=== PATIENT | female | born 1950 | race Caucasian/White ===

== ENCOUNTER → 2017-10-13 08:49 | Outpatient (CLI) | payer MEDICARE, SELFPAY ==
[2017-10-13 12:11] LABS: AST(SGOT) 14 U/L (15-37); Alanine Aminotransfer ALT/SGPT 20 U/L (13-56); Albumin, Serum 3.9 g/dL (3.2-5.0); Alkaline Phosphatase 117 U/L (45-117); Bilirubin, Direct 0.08 mg/dL (0.00-0.30); CPK Total, Creatine Kinase 74 U/L (26-192); Cholesterol 171 mg/dL (200); High Density Lipoprotein 61 mg/dL; Protein, Total 7.9 g/dL (6.4-8.2); Triglycerides 94 mg/dL; Very Low Density Lipoprotein 19 mg/dL (5-40)
== END ==
PROVIDERS: Family Provider Family Medicine; PCP Family Medicine
DX: E78.4 Other hyperlipidemia (principal)
CPT/HCPCS: 36415; 80061; 80076; 82550

== ENCOUNTER → 2018-06-29 09:18 | Outpatient (CLI) | payer MEDICARE, SELFPAY ==
--- NOTE | 2018-06-29 09:34 | CDU_ITS ---
Reason For Study: Bilateral Stenosis Rt. Velocities/BP Lt. Velocities/BP Prox CCA 101/21.7 cm/sec. Prox CCA 89.1/17.6 cm/sec. Mid CCA 84.4/22.9 cm/sec. Mid CCA 76.6/24 cm/sec. Dist CCA 90.9/23.5 cm/sec. Dist CCA 72.1/24.6 cm/sec. Prox ICA 138/41.3 cm/sec. Bulb 550/87.3 cm/sec. Mid ICA 119/44 cm/sec. Prox ICA 229/61.3 cm/sec. Dist ICA 121/40.1 cm/sec. Mid ICA 105/19.6 cm/sec. Rt. ICA/CCA = 1.52. Dist ICA 77/20.4 cm/sec. Prox ECA 116/29.1 cm/sec. Lt. ICA/CCA = 2.99. Rt. Vert. 29.3/10.2 cm/sec. Prox ECA 244/42.4 cm/sec. Lt. Vert. 52.6/16.1 cm/sec. Right Extracranial There is intimal thickening but no significant atherosclerotic plaque noted in the right common carotid artery. There is heterogeneous, irregular atherosclerotic plaque noted in the right internal carotid artery. There is intimal thickening but no significant atherosclerotic plaque noted in the right external carotid artery. Antegrade flow is noted in the right vertebral artery. Left Extracranial There is intimal thickening but no significant atherosclerotic plaque noted in the left common carotid artery. There is heterogeneous, irregular atherosclerotic plaque noted in the left internal carotid artery. There is homogeneous, smooth atherosclerotic plaque noted in the left external carotid artery. Antegrade flow is noted in the left vertebral artery. There is heterogeneous, irregular atherosclerotic plaque noted in the left bulb. Lt thyroid cyst noted measuring 2.54 x 1.39 cm. Procedure Carotid Duplex [id number]. Exam performed in department. Interpretation Summary Irregular plague at the proximal right internal carotid with 50-69% stenosis. Normal flow right external carotid Smooth plague within the left carotid bulb with focal area of severe high flow jet >70% stenosis left proximal internal carotid Moderate disease left external carotid Patent and antegrade vertebrals bilaterally Findings are similar to 06/19/17. Ordering Physician: THEE TARANGO Referring Physician: Raj Santana M.D. Performed By: Victorina Fang RVT and Student
[2018-06-29 11:57] LABS: AST(SGOT) 16 U/L (15-37); Alanine Aminotransfer ALT/SGPT 22 U/L (13-56); Albumin, Serum 4.2 g/dL (3.2-5.0); Alkaline Phosphatase 114 U/L (45-117); Bilirubin, Direct 0.09 mg/dL (0.00-0.30); CPK Total, Creatine Kinase 89 U/L (26-192); Cholesterol 181 mg/dL (200); Globulin 3.7 g/dL (2.2-4.2); High Density Lipoprotein 59 mg/dL; Protein, Total 7.9 g/dL (6.4-8.2); Triglycerides 139 mg/dL; Very Low Density Lipoprotein 28 mg/dL (5-40)
== END ==
PROVIDERS: Family Provider Family Medicine; PCP Family Medicine
DX: I65.23 Occlusion and stenosis of bilateral carotid arteries (principal); I77.9 Disorder of arteries and arterioles, unspecified; I25.10 Atherosclerotic heart disease of native coronary artery without angina pectoris; E78.2 Mixed hyperlipidemia
CPT/HCPCS: 36415; 80061; 80076; 82550; 93880

== ENCOUNTER → 2018-10-30 14:46 | Outpatient (CLI) | payer MEDICARE, SELFPAY ==
[2018-10-30 14:39] VITALS: BMI 25.2
--- NOTE | 2018-10-30 14:48 | RAD_ITS ---
STUDY: X-RAY - LUMBAR SPINE REASON FOR EXAM: Female, 68 years old. Chronic low back pain. TECHNIQUE: 4 view(s) of the lumbar spine were obtained including flexion and extension views. COMPARISON: None FINDINGS: Normal lumbar lordosis. There is no substantial scoliosis. There is a normal alignment of the vertebrae. Anterior spondylosis at the L3-L4 and L4-L5 levels. Disc space narrowing at the L4-L5 and L5-S1 levels. There is atherosclerotic calcification of the abdominal aorta without a demonstrated aneurysm. Large amount of fecal material is seen in the colon. RAD/L/S Spine Min 4 Views IMPRESSION: Degenerative changes of the spine, as detailed above. Electronically Signed: Mo Miller, at 10:48 EST , Service support ,
== END ==
PROVIDERS: Family Provider Family Medicine; PCP Family Medicine; Referring Provider Family Medicine; Visit Provider Physician Assistant
DX: R52 Pain, unspecified (principal)
CPT/HCPCS: 72110

== ENCOUNTER → 2019-01-12 10:09 | Outpatient (CLI) | payer MEDICARE, SELFPAY ==
[2018-10-30 14:39] VITALS: BMI 25.2
--- NOTE | 2019-01-12 10:24 | BI_ITS ---
MAMMOGRAPHY - BILATERAL SCREENING REASON FOR EXAM: Female, 68 years old. Routine annual screening examination. PERTINENT HISTORY: Non-contributory. TECHNIQUE: Digital bilateral breast sweta (3D mammographic acquisition) in the CC and MLO projections. 2-D mediolateral oblique (MLO) and craniocaudad (CC) views of both breasts were obtained. CAD: Full Field Digital Mammography with Computer Added Detection was performed. COMPARISON: Comparison is made with prior examination of May 15, 2017 and January 14, 2016. FINDINGS: Breast Composition: There are scattered areas of fibroglandular density. There are no dominant masses or suspicious calcifications. No other significant abnormalities are identified. There has been no significant change since the prior study. BI/SCREENING MAMM (CAD), BILAT IMPRESSION: Stable bilateral screening mammogram. Yearly follow-up mammogram recommended. (A) ASSESSMENT CATEGORY: BIRADS Category 1: Negative. A letter regarding these results will be sent to the patient by the facility within 30 days. Approximately 10% of breast cancers are not detected by mammography. A normal mammogram should not delay biopsy of a clinically suspicious abnormality. [id number] Electronically Signed: Mo Miller, at 8:56 EDT , Service support ,
== END ==
PROVIDERS: Family Provider Family Medicine; PCP Family Medicine; Referring Provider Family Medicine; Visit Provider Family Medicine
DX: Z12.31 Encounter for screening mammogram for malignant neoplasm of breast (principal)
CPT/HCPCS: 77063; 77067

== ENCOUNTER → 2019-03-19 10:56 | Outpatient (CLI) | payer MEDICARE, SELFPAY ==
[2018-10-30 14:39] VITALS: BMI 25.2
--- NOTE | 2019-03-19 10:58 | CDU_ITS ---
Reason For Study: Stenosis Rt. Velocities/BP Lt. Velocities/BP Prox CCA 117.4/22.5 cm/sec. Prox CCA 82.7/17.9 cm/sec. Mid CCA 84.6/17 cm/sec. Mid CCA 73.9/17.9 cm/sec. Dist CCA 72.8/16.3 cm/sec. Dist CCA 62.9/21.2 cm/sec. Prox ICA 138.9/35.8 cm/sec. Bulb 529.4/61.6 cm/sec. Mid ICA 119.3/33.4 cm/sec. Prox ICA 211/26.8 cm/sec. Dist ICA 110.1/31.6 cm/sec. Mid ICA 115.6/24.3 cm/sec. Rt. ICA/CCA = 1.6. Dist ICA 102.8/17 cm/sec. Prox ECA 140.4 cm/sec. Lt. ICA/CCA = 2.9. Rt. Vert. 26.9/8.2 cm/sec. Prox ECA 143/17 cm/sec. Lt. Vert. 49.4/15.4 cm/sec. Right Extracranial There is intimal thickening but no significant atherosclerotic plaque noted in the right common carotid artery. There is heterogeneous, irregular atherosclerotic plaque noted in the right internal carotid artery. There is intimal thickening but no significant atherosclerotic plaque noted in the right external carotid artery. Antegrade flow is noted in the right vertebral artery. Left Extracranial There is intimal thickening but no significant atherosclerotic plaque noted in the left common carotid artery. There is heterogeneous, irregular atherosclerotic plaque noted in the left internal carotid artery. There is homogeneous, smooth atherosclerotic plaque noted in the left external carotid artery. Antegrade flow is noted in the left vertebral artery. There is heterogeneous, irregular atherosclerotic plaque noted in the left bulb. Procedure Carotid Duplex [id number]. Exam performed in department. Interpretation Summary Heterogenous plague at the proximal right internal carotid with 50-69% stenosis. <50% stenosis right external carotid Heterogenous plague within the left carotid bulb and proximal internal carotid Notably elevated velocities left carotid bulb which do not fit stenosis criteria but may represent clinically significant disease and further evaluation is warranted. 50-69% stenosis left proximal internal carotid <50% stenosis left external carotid Patent and antegrade vertebrals bilaterally with <50% stenosis Ordering Physician: THEE TARANGO Referring Physician: Raj Santana M.D. Performed By: Chelo Romo RVT
== END ==
PROVIDERS: Family Provider Family Medicine; PCP Family Medicine
DX: I65.22 Occlusion and stenosis of left carotid artery (principal); I10 Essential (primary) hypertension; I25.10 Atherosclerotic heart disease of native coronary artery without angina pectoris
CPT/HCPCS: 93880

== ENCOUNTER → 2019-08-29 08:05 | Outpatient (CLI) | payer MEDICARE, SELFPAY ==
[2018-10-30 14:39] VITALS: BMI 25.2
[2019-08-29 09:22] LABS: ALB/GLOB Ratio 1.2 RATIO (0.9-2.4); AST(SGOT) 14 U/L (15-37); Alanine Aminotransfer ALT/SGPT 23 U/L (13-56); Alkaline Phosphatase 98 U/L (45-117); Anion Gap 4 (5-15); BUN 14 mg/dL (7-18); BUN/Creat Ratio 14.7 RATIO (10-20); Calcium,Total 9.1 mg/dL (8.5-10.1); Chloride 107 mmol/L (98-107); Cholesterol 200 mg/dL (200); Creatinine, Serum 0.96 mg/dL (0.55-1.02); EST Glomerular Filtration Rate 61 mL/min (>60); Est Glom Filt Rate - Afr Amer 74 mL/min (>60); Globulin 3.3 g/dL (2.2-4.2); Glucose 81 mg/dL (74-106); High Density Lipoprotein 67 mg/dL; Potassium 3.7 mmol/L (3.5-5.1); Protein, Total 7.3 g/dL (6.4-8.2); Sodium Level 142 mmol/L (136-145); Triglycerides 108 mg/dL; Very Low Density Lipoprotein 22 mg/dL (5-40)
== END ==
PROVIDERS: Family Provider Family Medicine; PCP Family Medicine; Referring Provider Internal Medicine Cardiovascular Disease; Visit Provider Internal Medicine Cardiovascular Disease
DX: E78.00 Pure hypercholesterolemia, unspecified (principal); I10 Essential (primary) hypertension
CPT/HCPCS: 36415; 80053; 80061

== ENCOUNTER → 2020-03-11 09:55 | Outpatient (CLI) | payer MEDICARE, SELFPAY ==
[2019-10-29 15:46] VITALS: BMI 25.2
--- NOTE | 2020-03-11 10:07 | CDU_ITS ---
Reason For Study: Carotid Stenosis Rt. Velocities/BP Lt. Velocities/BP Prox CCA 122/12 cm/sec. Prox CCA 117/18 cm/sec. Mid CCA 111/17 cm/sec. Mid CCA 86/18 cm/sec. Dist CCA 78/13 cm/sec. Dist CCA 67/16 cm/sec. Prox ICA 209/41 cm/sec. Prox ICA 415/75 cm/sec. Mid ICA 166/36 cm/sec. Mid ICA 308/42 cm/sec. Dist ICA 116/28 cm/sec. Dist ICA 103/22 cm/sec. Rt. ICA/CCA = 1.88. Lt. ICA/CCA = 4.83. Prox ECA 153/14 cm/sec. Prox ECA 227/12 cm/sec. Rt. Vert. 30/7 cm/sec. Lt. Vert. 58/13 cm/sec. Right Extracranial There is heterogeneous, irregular atherosclerotic plaque noted in the right common carotid artery. There is heterogeneous, irregular atherosclerotic plaque noted in the right internal carotid artery. There is homogeneous, smooth atherosclerotic plaque noted in the right external carotid artery. Antegrade flow is noted in the right vertebral artery. Pre-steal waveform noted Rt Vertebral A. Left Extracranial There is heterogeneous, irregular atherosclerotic plaque noted in the left common carotid artery. There is heterogeneous, smooth atherosclerotic plaque noted in the left internal carotid artery. There is heterogeneous, irregular atherosclerotic plaque noted in the left external carotid artery. Antegrade flow is noted in the left vertebral artery. Procedure Carotid Duplex [id number]. Incidental finding: Hypoechoic, non vascular structure noted Lt Thyroid measuring 2.32cm x 3.00cm. Exam performed in department. Prelim given to Tita at [facility]. Interpretation Summary Moderate amount of heterogenous plaque in the proximal right internal carotid artery with 50 to 69% stenosis. <50% stenosis right external carotid Heterogenous smooth plaque within the proximal left internal carotid artery with greater than 70% stenosis. >50% stenosis left external carotid Patent and antegrade vertebrals bilaterally Compared to the previous examination of March 19, 2019 or as the highest velocity was located within the left carotid bulb that velocity is now being identified in the proximal left internal carotid. Ordering Physician: Aly Rueda Referring Physician: Tong Santana Performed By: Melinda Montoya RDCS, SIGIFREDO
== END ==
PROVIDERS: PCP Family Medicine; Referring Provider Internal Medicine Cardiovascular Disease; Visit Provider Internal Medicine Cardiovascular Disease
DX: I65.22 Occlusion and stenosis of left carotid artery (principal)
CPT/HCPCS: 93880

== ENCOUNTER → 2020-04-10 08:34 | Outpatient (CLI) | payer MEDICARE, SELFPAY ==
[2019-10-29 15:46] VITALS: BMI 25.2
[2020-04-10 10:29] LABS: Anion Gap 4 (5-15); BUN 11 mg/dL (7-18); BUN/Creat Ratio 11.8 RATIO (10-20); Calcium,Total 9.8 mg/dL (8.5-10.1); Chloride 108 mmol/L (98-107); Creatinine, Serum 0.93 mg/dL (0.55-1.02); EST Glomerular Filtration Rate 63 mL/min (>60); Est Glom Filt Rate - Afr Amer 76 mL/min (>60); Glucose 85 mg/dL (74-106); Potassium 4.3 mmol/L (3.5-5.1); Sodium Level 142 mmol/L (136-145)
== END ==
PROVIDERS: PCP Family Medicine; Referring Provider Internal Medicine Cardiovascular Disease; Visit Provider Internal Medicine Cardiovascular Disease
DX: I10 Essential (primary) hypertension (principal)
CPT/HCPCS: 36415; 80048

== ENCOUNTER → 2020-06-16 | Outpatient (CLI) | payer MEDICARE, SELFPAY ==
[2020-06-16 15:17] VITALS: BMI 26.2
[2020-06-16 15:25] LABS: Bacteria 0 SEEN /hpf (None Seen); Mucous, Urine 0 SEEN /hpf (<or=2+); Red Blood Cells-Urine 0 SEEN /hpf (0-5); Squamous Epithelial Cells - UA 0 SEEN /hpf (5-10); White Blood Cells 0 SEEN /hpf (0-5)
[2020-06-16 16:51] LABS: Color, Urine Yellow (Yellow); Glucose, Dipstick Normal (Normal); Ketone-Dipstick Negative (Negative); Leukocyte Esterase-Dipstick Negative /ul (Negative); Nitrite-Dipstick Negative (Negative); Occult Blood-Urine 10 /ul (Negative); Protein-Dipstick Negative (Negative); Urine Bilirubin Dipstick Negative (Negative); Urine Clarity Clear (Clear); Urine Urobilinogen Normal (Normal)
== END | disposition home or self-care (01) ==
PROVIDERS: PCP Family Medicine; Referring Provider Nurse Practitioner Family; Visit Provider Nurse Practitioner Family
DX: R30.0 Dysuria (principal)
CPT/HCPCS: 81001; 87086; 87088

== ENCOUNTER → 2020-07-04 09:16 | Outpatient (CLI) | payer MEDICARE, SELFPAY ==
[2020-06-16 15:17] VITALS: BMI 26.2
[2020-07-04 09:25] LABS: Bacteria 0 SEEN /hpf (None Seen); Mucous, Urine 0 SEEN /hpf (<or=2+); Red Blood Cells-Urine 0 SEEN /hpf (0-5); White Blood Cells 0 SEEN /hpf (0-5)
[2020-07-04 09:58] LABS: Color, Urine Yellow (Yellow); Glucose, Dipstick Normal (Normal); Ketone-Dipstick Negative (Negative); Leukocyte Esterase-Dipstick Negative /ul (Negative); Nitrite-Dipstick Negative (Negative); Occult Blood-Urine 10 /ul (Negative); Protein-Dipstick Negative (Negative); Urine Bilirubin Dipstick Negative (Negative); Urine Clarity Clear (Clear); Urine Urobilinogen Normal (Normal)
[2020-07-04 10:20] LABS: Squamous Epithelial Cells - UA 0-5 SEEN /hpf (5-10)
== END ==
PROVIDERS: PCP Family Medicine; Referring Provider Nurse Practitioner Family; Visit Provider Nurse Practitioner Family
DX: R30.0 Dysuria (principal)
CPT/HCPCS: 81001; 87086; 87088

== ENCOUNTER → 2020-07-22 09:38 | Outpatient (CLI) | payer MEDICARE, SELFPAY ==
[2020-07-21 13:41] VITALS: BMI 26.0
--- NOTE | 2020-07-22 09:41 | CT_ITS ---
STUDY: CTA NECK WITH CONTRAST REASON FOR EXAM: Female, 69 years old. Carotid stenosis. Right arm numbness, trouble getting words out, possible TIA. Prelim already completed. RADIATION DOSAGE (If Supplied By Facility): CTDIvol = ( 18.06 ) mGy, DLP = ( 482.72 ) mGycm TECHNIQUE: CT angiography with multi-detector data acquisition was performed from the aortic arch to the skull base following intravenous administration of IV 100mL Isovue-370. MIP images were reconstructed from the axial data set. Post-processing of the angiographic images was performed, with multiplanar reformation and 3D reconstruction. Individualized dose optimization techniques were used for this CT. COMPARISON: Previous carotid DOPPLER ultrasound obtained on 03/11/2020, previous CTA of the neck obtained on 07/14/2017 FINDINGS: A CT scan of the head and neck was performed and reviewed. Mucoperiosteal reaction is noted in the ethmoid sinuses bilaterally with minimal mucoperiosteal reaction also seen in the maxillary sinuses due to a low-grade sinusitis. The patient has had bilateral uncinectomies. The remainder the skull base and the cervical spine appear to be normal. The parotid space, buccal space, parapharyngeal space, parapharyngeal mucosal space, retropharyngeal space, and carotid spaces are all normal. There is a heterogeneous masslike lesion seen in the left lobe of the thyroid. Although this probably represents a large thyroid cyst and was seen previously and is unchanged. If clinically indicated, further evaluation with a thoracic ultrasound might be helpful for additional evaluation. AORTIC ARCH: Normal visualized aortic arch. Normal origins of the brachiocephalic, left common carotid, and left subclavian arteries. There is 50% stenosis of the origin of the right subclavian artery. RIGHT CAROTID ARTERIES: Normal right common carotid artery (CCA). Normal right common carotid bulb. There is calcific arteriosclerosis noted at the origin of the right internal carotid artery causing 10% stenosis by NASCET criteria.. Normal visualized cervical portion of the right internal carotid artery. Normal origin of the right external carotid artery (ECA). LEFT CAROTID ARTERIES: Normal left common carotid artery (CCA). There is arteriosclerotic plaque noted involving the left carotid bifurcation with a possible tiny ulcerated plaque causing about 40% stenosis at this level. Normal origin of the left internal carotid (ICA) artery without a hemodynamically significant stenosis. Normal visualized cervical portion of the left internal carotid artery. There is about 70% stenosis of the origin of the left external carotid artery. (ECA). VERTEBRAL ARTERIES: There is a dominant and normal appearing left vertebral artery. There is a short segment of about 50% stenosis involving the origin of the right vertebral artery and another short segment of about 50% stenosis noted involving the distal V3 segment of the right vertebral artery. CT/CTA Neck W/WO Contrast IMPRESSION: 1. A complex cystic mass lesion is noted involving the left thyroid lobe which was previously identified and is unchanged. Consider further evaluation with thyroid ultrasound. 2. Calcific arteriosclerosis of the origin of the right internal carotid causing 10% stenosis by NASCET criteria. 3. Calcific arteriosclerosis is noted involving the left carotid bifurcation with a questionable ulcerated plaque causing 40% stenosis of the bifurcation and 70% stenosis of the origin of the left external carotid artery. 4. Dominant and normal left vertebral artery. 5. 50% stenosis of the origin of the smaller right vertebral artery and a short segment of 50% stenosis is also seen involving the V3 segment of the right vertebral artery. Electronically Signed: Bobo Soler, at 9:45 EST Tel , Service support ,
[2020-07-22 10:06] LABS: CREATININE FINGERSTICK 0.6 mg/dL (0.55-1.02)
[2020-07-22 11:09] LABS: Absolute Lymphocyte Count 2.92 X10^3/uL (0.83-4.51); Absolute Neutrophil Count 3.2 X10^3/uL (2.0-7.7); Basophil% 1.3 % (0-1); Eosinophil# 0.48 X10^3/uL; Eosinophils% 6.1 % (0-5); Hematocrit 44.1 % (37-47); Hemoglobin 14.1 g/dL (12.0-15.0); Lymphocyte # 2.92 X10^3/ul (4.0); Lymphocyte % 37.3 % (19-41); Mean Corpuscular Volume 96.9 fL (81-99); Mean Platelet Vol. 10.1 fl (6.2-12.0); NRBC Flagged by Analyzer 0 % (0-5); Neutrophil # 3.21 X10^3/uL (2.7-7.7); Platelet Count 499 K/mm3 (150-450); RBC Distribution Width CV 13.2 % (11.6-14.6); Red Blood Count 4.55 M/mm3 (4.2-5.4); White Blood Count 7.8 K/mm3 (4.4-11.0)
[2020-07-22 11:34] LABS: Anion Gap 4 (5-15); BUN 12 mg/dL (7-18); BUN/Creat Ratio 13.1 RATIO (10-20); Calcium,Total 9.6 mg/dL (8.5-10.1); Chloride 103 mmol/L (98-107); Creatinine, Serum 0.92 mg/dL (0.55-1.02); EST Glomerular Filtration Rate 64 mL/min (>60); Est Glom Filt Rate - Afr Amer 78 mL/min (>60); Glucose 88 mg/dL (74-106); Potassium 3.6 mmol/L (3.5-5.1); Sodium Level 137 mmol/L (136-145)
== END ==
PROVIDERS: Internal Medicine; PCP Family Medicine; Referring Provider Surgery; Visit Provider Surgery
DX: I74.9 Embolism and thrombosis of unspecified artery (principal); Z86.73 Personal history of transient ischemic attack (TIA), and cerebral infarction without residual deficits; I65.29 Occlusion and stenosis of unspecified carotid artery
CPT/HCPCS: 36415; 70498; 80048; 85025; Q9967

== ENCOUNTER → 2020-07-31 17:02 | Outpatient (CLI) | payer MEDICARE, SELFPAY ==
[2020-07-27 12:34] VITALS: BMI 26.0
--- NOTE | 2020-07-31 17:03 | MRI_ITS ---
STUDY: MRI BRAIN WITHOUT CONTRAST REASON FOR EXAM: Female, 69 years old. TIA acute neurologic deficit/findings TECHNIQUE: Standardized multiplanar fat and water weighted pulse sequences were obtained. COMPARISON: None. FINDINGS: There is no acute infarct. There is left posterior frontal lobe precentral sulcus related T-2/flair hyperintensity, possibly subacute infarct, such as 2-3 months old versus early chronic, less than 6-month-old. This is probably in the accessory motor area. There is no mass effect, extra parenchymal fluid collections, hydrocephalus or herniation. Extra parenchymal fluid spaces are diminished. Major vascular flow structures are intact. Orbits are normal. There is an empty sella turcica appearance with a normal gland flattened along the floor of the sella. This is an appearance associated with intracranial hypertension/pseudotumor cerebri. Craniocervical junction is unremarkable. There is mild mucosal reactive change in the ethmoid sinuses with remainder of the paranasal sinuses clear. There is hyperostosis frontalis, an age-related benign skull/bone condition. MRI/Brain without Contrast IMPRESSION: 1. No acute infarct. 2. 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 3. Empty sella turcica, an appearance associated with intracranial hypertension/pseudotumor cerebri. Attention to possibility of this diagnosis is advised. Electronically Signed: Julia Torrez, at 18:41 EST Tel , Service support ,
== END ==
PROVIDERS: PCP Family Medicine; Referring Provider Internal Medicine; Visit Provider Internal Medicine
DX: G45.9 Transient cerebral ischemic attack, unspecified (principal)
CPT/HCPCS: 70551

== ENCOUNTER 2020-08-05 05:30 | Inpatient (IN) | payer MEDICARE, SELFPAY ==
[2020-07-27 12:34] VITALS: BMI 26.0
--- NOTE | 2020-07-31 12:10 | EKG12_ITS ---
Test Reason : PREOP Blood Pressure : / mmHG Vent. Rate : 089 BPM Atrial Rate : 089 BPM P-R Int : 172 ms QRS Dur : 084 ms QT Int : 370 ms P-R-T Axes : 061 -28 076 degrees QTc Int : 450 ms Normal sinus rhythm Leftward Bells Poor R- wave progression Confirmed by AGUSTO LEES, JANICE ([id number]), sports editor MICHELE NEWTON ([id number]) on 08/03/2020 1:42:46 PM Referred By: RAE Confirmed By:JANICE LIZ MD
[2020-08-05] VITALS (23 sets, daily range): BP systolic 109–173; BP diastolic 45–88; PULSE 77–103; RESP 16–18; TEMP 36.1–37.1; O2SAT 93–100; BMI 26.4
--- NOTE | 2020-08-05 05:58 | HP.PCM_ITS ---
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 Is patient in pain?: No Allergies hydrochlorothiazide Allergy (Severe, Verified 07/27/20 12:34) Blood Pressure Sporadic Medications amlodipine 10 mg tablet 10 mg PO DAILY 09/12/18 [History Confirmed 07/27/20] aspirin 325 mg tablet 325 mg PO DAILY 09/12/18 [History Confirmed 07/27/20] simvastatin 40 mg tablet 40 mg PO QHS 09/12/18 [History Confirmed 07/27/20] clopidogrel 75 mg tablet 75 mg PO DAILY #14 tab 07/21/20 [Rx Confirmed 07/27/20] PFSH Medical History Vertigo (Chronic) Vascular disease (Chronic) High cholesterol (Chronic) Hypertension (Chronic) Heart disease (Chronic) Gastrointestinal complaints (Chronic) Surgical History History of cholecystectomy (Acute) History of coronary artery stent placement (Acute) History of sinus surgery (Acute) Family History Mother Cancer Brother Cancer Social History (Updated 07/27/20 @ 13:[address] Bismark Carroll MD) Smoking Status: Former smoker alcohol intake: never substance use type: does not use what type of physical activity do you participate in: walking frequency: daily HPI HPI HPI: SYBIL SUERO, is a 69 F who presents to the office today for surgical consultation regarding symptomatic left carotid stenosis and suspected TIA. The patient is referred by Dr. Cammie Noriega written copy my surgical consult recommendations will be returned to him. The patient states for may be as long as 10 to 15 years she has had periodic follow-up of her known left carotid stenosis. She now presents after having 2 separate episodes. She has had some problems with benign positional vertigo. She was undergoing therapy for her neck and back doing a new exercise a lunge. She states the next day she had loss of use of her right arm. She thought she had a stroke at that time it seemed to resolve. Approximately 1 week later she then had onset of another episode with tingling of the right arm and decreased fine motor control as well as significant slurring of her speech. She thinks that at the same time her right eye became feeling scratchy. At that time she was on aspirin 325 mg daily. She had a carotid duplex exam as noted below on March 11, 2020. This demonstrated peak systolic velocity within the left proximal internal carotid at 415 cm/s flow with end-diastolic loss of 75. The mid internal carotid showed 308 cm second peak systolic flow. This was felt to be greater than 70% stenosis. On the right peak systolic flow was 209 cm/s in the internal carotid consistent with 50 to 69% stenosis. Because of the patient's recent symptoms a CTA of the neck with contrast was obtained on July 22, 2020. There is felt to be a complex cystic lesion within the left thyroid previously identified and not changed. There is felt to be calcific origin of the right internal carotid at 10% stenosis. There is felt to be questionable ulcerated plaque causing 40% stenosis of the bifurcation of the left and then 70% stenosis of the origin of the left external carotid. The left vertebral is dominant and normal. There is 50% stenosis of the origin of the right vertebral artery. I have personally reviewed her current CTA. My interpretation is that there is a slightly more significant degree of stenosis of the very proximal left internal carotid with that then what appears to be post stenotic dilatation. This seems to be combined with suspicious area of plaque ulceration. The right carotid system does not seem to demonstrate critical disease at this time. [facility] [address] [place] [address]. [place] [address] Carotid Duplex Ultrasound 03/11/20 1014 MR#: [id number] Name: SYBIL SUERO [facility] #:[id number] : 1950 69From: Bismark Carroll MD Attending Dr: Dr. Aly Rueda, MDStatus: REG CLI Ordering Dr: Aly Rueda MDDate: 03/11/20 Location:CVSSex: Admitted: Reason For Study: Carotid Stenosis Rt. Velocities/BP Lt. Velocities/BP Prox CCA 122/12 cm/sec. Prox CCA 117/18 cm/sec. Mid CCA 111/17 cm/sec. Mid CCA 86/18 cm/sec. Dist CCA 78/13 cm/sec. Dist CCA 67/16 cm/sec. Prox ICA 209/41 cm/sec. Prox ICA 415/75 cm/sec. Mid ICA 166/36 cm/sec. Mid ICA 308/42 cm/sec. Dist ICA 116/28 cm/sec. Dist ICA 103/22 cm/sec. Rt. ICA/CCA = 1.88. Lt. ICA/CCA = 4.83. Prox ECA 153/14 cm/sec. Prox ECA 227/12 cm/sec. Rt. Vert. 30/7 cm/sec. Lt. Vert. 58/13 cm/sec. Right Extracranial There is heterogeneous, irregular atherosclerotic plaque noted in the right common carotid artery. There is heterogeneous, irregular atherosclerotic plaque noted in the right internal carotid artery. There is homogeneous, smooth atherosclerotic plaque noted in the right external carotid artery. Antegrade flow is noted in the right vertebral artery. Pre-steal waveform noted Rt Vertebral A. Left Extracranial There is heterogeneous, irregular atherosclerotic plaque noted in the left common carotid artery. There is heterogeneous, smooth atherosclerotic plaque noted in the left internal carotid artery. There is heterogeneous, irregular atherosclerotic plaque noted in the left external carotid artery. Antegrade flow is noted in the left vertebral artery. Procedure Carotid Duplex 34704. Incidental finding: Hypoechoic, non vascular structure noted Lt Thyroid measuring 2.32cm x 3.00cm. Exam performed in department. Prelim given to Tita at [facility]. Interpretation Summary Moderate amount of heterogenous plaque in the proximal right internal carotid artery with 50 to 69% stenosis. <50% stenosis right external carotid Heterogenous smooth plaque within the proximal left internal carotid artery with greater than 70% stenosis. >50% stenosis left external carotid Patent and antegrade vertebrals bilaterally Compared to the previous examination of March 19, 2019 or as the highest velocity was located within the left carotid bulb that velocity is now being identified in the proximal left internal carotid. Ordering Physician: Aly Rueda Referring Physician: Tong Santana Performed By: Melinda Montoya, RDCS, RVT 03/11/20 1236 Date Bismark Carroll MD [facility] Imaging Services [address] [place] [address] CTA Neck W/WO Contrast MR#: [id number] Name: SYBIL SUERO [facility] #:[id number] : 1950 69 From: Bobo Soler DO PCP:Dr. Tong Santana, DO Status:REG CLI Study:CTA Neck W/WO Contrast Date of Exam:07/22/20 Exam#[id number] Ordering Dr: Bismark Carroll MD STUDY: CTA NECK WITH CONTRAST REASON FOR EXAM: Female, 69 years old. Carotid stenosis. Right arm numbness, trouble getting words out, possible TIA. Prelim already completed. RADIATION DOSAGE (If Supplied By Facility): CTDIvol = ( 18.06 ) mGy, DLP = ( 482.72 ) mGycm TECHNIQUE: CT angiography with multi-detector data acquisition was performed from the aortic arch to the skull base following intravenous administration of IV 100mL Isovue-370. MIP images were reconstructed from the axial data set. Post-processing of the angiographic images was performed, with multiplanar reformation and 3D reconstruction. Individualized dose optimization techniques were used for this CT. COMPARISON: Previous carotid DOPPLER ultrasound obtained on 03/11/2020, previous CTA of the neck obtained on 07/14/2017 FINDINGS: A CT scan of the head and neck was performed and reviewed. Mucoperiosteal reaction is noted in the ethmoid sinuses bilaterally with minimal mucoperiosteal reaction also seen in the maxillary sinuses due to a low-grade sinusitis. The patient has had bilateral uncinectomies. The remainder the skull base and the cervical spine appear to be normal. The parotid space, buccal space, parapharyngeal space, parapharyngeal mucosal space, retropharyngeal space, and carotid spaces are all normal. There is a heterogeneous masslike lesion seen in the left lobe of the thyroid. Although this probably represents a large thyroid cyst and was seen previously and is unchanged. If clinically indicated, further evaluation with a thoracic ultrasound might be helpful for additional evaluation. AORTIC ARCH: Normal visualized aortic arch. Normal origins of the brachiocephalic, left common carotid, and left subclavian arteries. There is 50% stenosis of the origin of the right subclavian artery. RIGHT CAROTID ARTERIES: Normal right common carotid artery (CCA). Normal right common carotid bulb. There is calcific arteriosclerosis noted at the origin of the right internal carotid artery causing 10% stenosis by NASCET criteria.. Normal visualized cervical portion of the right internal carotid artery. Normal origin of the right external carotid artery (ECA). LEFT CAROTID ARTERIES: Normal left common carotid artery (CCA). There is arteriosclerotic plaque noted involving the left carotid bifurcation with a possible tiny ulcerated plaque causing about 40% stenosis at this level. Normal origin of the left internal carotid (ICA) artery without a hemodynamically significant stenosis. Normal visualized cervical portion of the left internal carotid artery. There is about 70% stenosis of the origin of the left external carotid artery. (ECA). VERTEBRAL ARTERIES: There is a dominant and normal appearing left vertebral artery. There is a short segment of about 50% stenosis involving the origin of the right vertebral artery and another short segment of about 50% stenosis noted involving the distal V3 segment of the right vertebral artery. CT/CTA Neck W/WO Contrast IMPRESSION: 1. A complex cystic mass lesion is noted involving the left thyroid lobe which was previously identified and is unchanged. Consider further evaluation with thyroid ultrasound. 2. Calcific arteriosclerosis of the origin of the right internal carotid causing 10% stenosis by NASCET criteria. 3. Calcific arteriosclerosis is noted involving the left carotid bifurcation with a questionable ulcerated plaque causing 40% stenosis of the bifurcation and 70% stenosis of the origin of the left external carotid artery. 4. Dominant and normal left vertebral artery. 5. 50% stenosis of the origin of the smaller right vertebral artery and a short segment of 50% stenosis is also seen involving the V3 segment of the right vertebral artery. Electronically Signed: Bobo Soler, at 9:45 EST Tel , Service support , HPI HPI HPI: SYBIL SUERO, is a 69 F who presents to the office today for ROS General General: No weight change, appetite, fatigue, colon cancer, breast cancer or weakness HEENT HEENT: No difficulty swallowing, eye injury, eye surgery, swollen glands or hoarseness Endo Endocrine: No thyroid disease, diabetes mellitus, thyroid cancer, Hair loss, heat intolerance or cold intolerance Skin Skin: No rash or changing moles Breast Breast: No left breast lump, right breast lump, nipple discharge, breast pain, abnormal mammogram, abnormal US or breast enlargement Musc Musculoskeletal: No back problems, arthritis, rheumatoid arthritis, gout or joint pain Cardio Cardiovascular: Yes heart disease, high blood pressure and heart stent; no murmur, pacemaker, atrial fibrillation, heart attack, palpitations, shortness of breat with exertion or chest pain Psych Psychiatric: No depression, anxiety or hearing voices Resp Respiratory: No shortness of breath, No sleep apnea, No cough, No COPD, No asthma, No emphysema, No wheezing Gastro Gastrointestinal: No abdominal pain, No nausea or vomiting, No diarrhea, No constipation, No blood in stool, No acid reflux, No hemorrhoids, No ulcers, No gallbladder problem, No black,tarry stools Min Hematologic: Yes blood thinners, No blood disorders, No bleeding, No anemia, No blood clots Neuro Neurologic: No system reviewed and no additional complaints, except as docu, No as per HPI, No abnormal walking, No abnormal hearing, No abnormal movements, No abnormal speech, No behavioral changes, No burning sensations, No confusion, No seizure-like activity, No unsteadiness, No dizziness, No localized weakness, No frequent falls, No headache(s), No lack of coordination, No loss of vision, No memory loss, No numbness, No other visual disturbances, No radiating pain, No restless legs, No sensory deficit, No fainting, No tingling, No tremor(s), No weakness, No other Exam Const General: cooperative, healthy appearing, comfortable, no acute distress Nutritional Appearance: average body habitus Orientation: alert, awake, oriented x3 HENMT Head: normal to inspection Eyes General: appearance normal, both eyes and all related structures Neck Carotids: normal carotid upstroke Other: Very soft bruit left carotid. I did not attempt a extensive thorough thyroid examination because of the patient's symptomatic carotid disease Chest Breast Palpation: No nipple discharge Resp Effort & Inspection: normal respiratory effort Auscultation: clear to auscultation bilaterally Cardio Rate: regular rate Rhythm: regular rhythm Heart Sounds: no murmurs GI Palpation: soft, no hepatosplenomegaly Auscultation: normal bowel sounds Musc Cervical Spine: normal cervical lordosis Skin General: no rashes or lesions noted Neuro Cognition: normal cognition Extrem General: no calf tenderness Psych Affect: normal affect Assessment & Plan Problems 1. Carotid stenosis, bilateral I65.23 Plan On my review of patient's symptoms and investigation to me it appears that the patient's had 2 separate TIA episodes involving likely the left carotid as a source while she was on 325 mg aspirin daily. That treatment was prescribed by her recycle coordinator this the patient had remote placement of coronary stent does not currently have any coronary symptoms. I have reviewed her previous carotid duplex imaging and current studies as well as her previous CTA of the carotids 3 years ago and her current study. I am very concerned that the current CTA demonstrates a higher degree of stenosis with what I suspect to be significant poststenotic dilatation in addition to likely an ulcerated plaque. Dr. Cammie Noriega had the patient changed from a 325 mg daily aspirin to an 81 mg aspirin with the addition of clopidogrel 75 mg daily. The patient has been instructed not to pursue additional physical therapy regarding her shoulder and neck. I have discussed with her in detail technique, benefit, risk, alternatives of a left carotid endarterectomy and compared and contrasted that to left carotid artery stenting. We discussed ongoing medical management as well. I believe there is now symptomatology to correlate with the disease present. I believe that the disease has progressed both on CTA and on carotid duplex. She is aware of the technique. She is aware that arterial line monitoring will be used and that she will be recovered in the recovery room with then pending her progress hopeful transfer to a [facility] floor. She is however aware that utilization of the ICU may be required. She is aware of COVID-19. She is aware that we have second floors are Covid floor. She is also aware of the procedure carotid artery stenting and that I could refer her for that procedure. She has had an opportunity to ask and have questions answered. At this point she is interested in scheduling proceeding for the left carotid enterectomy. We will have her hold her Plavix just 1 day preprocedure while she continues the aspirin therapy. She is aware of potential risk of stroke related to the procedure. We have also discussed anticipated durability. Copy: Dr. Cammie Carroll M.D., F.A.C.S. Coding Level of Care Code 41185 Diagnoses Carotid stenosis, bilateral I65.23 I have re-examined the patient. There are no clinical changes since date of exam. Procedure Criteria Procedure Type: Elective COVID Risk Discussion: The surgeon/proceduralist and patient have discussed in detail the risk of exposure to and/or potential harm posed by the COVID-19 virus with having a surgery/procedure at this time versus the risk of delaying the surgery/procedure. It is not possible to know either the risk of delaying the surgery or procedure or chance of getting an infection with perfect accuracy, but a joint decision was made between the patient and the surgeon/proceduralist to proceed at this time with the scheduled surgery/procedure as indicated on the consent form.
--- NOTE | 2020-08-05 05:59 | DCINST_ITS ---
Discharge Diet: Light diet - advance as tolerated - if you have questions about your diet instructions, please talk to you doctor. Discharge Activity: May Not Drive - for 1 week or while taking narcotic pain medicine. Additional Instructions: Please refer to preprinted instructions. You may cease your clopidogrel at this time Allergies/Adverse Reactions: Allergies hydrochlorothiazide Allergy (Severe, Verified 08/05/20 05:57) Blood Pressure Sporadic Medications to take at Discharge amlodipine 10 mg tablet 10 mg PO DAILY 09/12/18 simvastatin 40 mg tablet 40 mg PO QHS 09/12/18 Aspirin [Aspirin EC] 81 mg PO DAILY 07/31/20 Clopidogrel Bisulfate [Clopidogrel] 75 mg PO DAILY 07/31/20 Primary Care Physician: Tong Santana DO [Primary Care Provider] - Test Results: Test results from this visit will be discussed in further detail at your follow- up appointment, if applicable. Please Follow Up With: Bismark Carroll MD - [phone] When: Call for appt. May be phone, virtual, or on-site. 10days
--- NOTE | 2020-08-05 06:33 | PCM.OPRPT ---
Problem List (1) Carotid stenosis, bilateral Status: Acute Report of Operation Date of Procedure: 08/05/20 Pre-Operative Diagnosis: Symptomatic ulcerative stenosis left extracranial internal carotid artery Post-Operative Diagnosis: Same Surgery/Procedure Performed:: Right radial arterial line placement. Left carotid endarterectomy with bovine patch angioplasty Description of Surgical Findings:: Timeout and informed consent was obtained. At the bedside Aurelio test performed demonstrating normal right ulnar flow. The wrist was gently extended prepped with Betadine. Under ultrasound guidance the right radial artery was identified. 1% lidocaine was used as a local anesthetic. 1 cc was injected. Using a Arrow kit Angiocath percutaneous access was obtained and then Seldinger wire advancement was used to advance the catheter. It was secured the skin with 2-0 silk. It was connected to pressure tubing. OpSite dressing followed by Eleni wrap applied. No apparent complication. Hand was viable at the completion. Good waveform was obtained. The patient tolerated it well. The patient was subsequently taken to the operating for definitive left carotid surgery. Timeout and informed consent was obtained. The patient was placed supine on the table and underwent general endotracheal intubation anesthesia. Ancef 2 g were given intravenously. The left neck was carefully prepped and draped. An oblique incision was made along the anterior aspect of the left sternocleidomastoid. Sharp dissection carried down through the subcutaneous tissue. The platysma was incised. Dissection was then performed directly down upon the carotid bulb common carotid internal carotid. Circumferential control was obtained proximally and distally of the internal carotid external carotid and common carotid. A Elizabeth tourniquet was placed with a Dacron tape at the internal carotid a Dacron tape at the common carotid and a vessel loop at the external carotid. The patient received 7000 and's of heparin intravenously. Peripheral vascular clamps were applied. A 11 blade was used to make an arteriotomy which was extended with Estevez scissors. A #8 USCI style shunt was placed cephalad and proximally. An endarterectomy was performed the layer of the external elastic lamina. The plaque was sharply transected proximally and carefully feathered at the internal carotid. An inversion endarterectomy was performed to the external carotid. Additional plaque and debris was carefully removed with fine forceps. An apical suture of the internal carotid intima of 7-0 Prolene was placed for securement. A 8 x 0.8 similar bovine patch was shaped to form and a patch angioplasty was created with a running 6-0 Prolene. Prior to completion the shunt was removed the patch angioplasty was completed. Initial flow was instituted from the external carotid common carotid and the internal carotid. Based upon ACT measurements additional 500 units of heparin had been given intraoperatively. A single repair suture of 7-0 Prolene was used on the patch angioplasty. The patient received 20 mg of protamine as reversal agent. The wound was closed with a subcutaneous and subdermal layer of interrupted 3-0 Vicryl. The skin edges approximate running septic or 5-0 Vicryl. The periincisional area was anesthetized with 20 cc of 0.5% Marcaine. Steri-Strips Telfa OpSite dressings applied. Sponge and instrument and needle counts were reported to the surgeon to be correct. Specimen plaque. Drains none. Blood loss 150 cc. The patient awoke appeared to be neurologically intact and was taken to the recovery area in satisfactory vision without apparent complication. Bismark Carroll M.D., F.A.C.S. Type of Anesthesia:: General Anesthesiologist: Lindsay Menjivar
[2020-08-05] MEDS: 0.9% Normal Saline 250 ML IV.SOLN. 30 ML IV (06:49)
[2020-08-05] MEDS: Lactated Ringers 1,000 ML 100 ML IV (06:50)
[2020-08-05] MEDS: 0.9% Normal Saline 1,000 ML 30 ML IV (06:50)
[2020-08-05] MEDS: Cefazolin 2 GM in 0.9% Normal Saline 100 ML IV (07:18)
--- NOTE | 2020-08-05 07:30 | PLAQ_PTH ---
PATIENT: SYBIL SUERO LOC: MS3 U#:[id number] AGE/SX: 69/F ROOM: MS306 RE08/05/[address]: Dr. Bismark Carroll MD : 1950 BED: 1 DIS: 08/06/2020 SPEC #: [id number] RECD: 08/05/20 10:57 STATUS: DANI REGenny #: [id number] ELENA: 08/05/20 07:[address]: Bismark Carroll DEPT: SURGICAL PATHOLOGY RECD BY: Shadia Causey ENTERED: 08/05/20 12:15 SP TYPE: PLAQUE OTHR DR: Dr. Tong Santana, DO Tissues: PLAQUE Procedures: Decalcification bone/plaque Surgery Specimen Level III HEADER OPERATION: Carotid endarterectomy with patch angioplasty PRE-OP DIAGNOSIS: Carotid stenosis, bilateral TISSUE SUBMITTED: Left carotid plaque MICROSCOPIC DIAGNOSIS Left carotid artery plaque, endarterectomy: Calcified atheromatous plaque consistent with severe stenosis. AM:sunny 08/10/20 GROSS DESCRIPTION Received in fixative is one container labeled with the patient's name and designated left carotid plaque. The specimen consists of an elongated fragment of vdpm-bdpvlm-end tissue measuring 3 x 1 x 1 cm. The specimen is sectioned and totally submitted in one cassette after decalcification. / AM:sunny 08/05/20 TC:5 CPT: 324016, 13805
[2020-08-05] MEDS: Heparin Injection (Vial) 5,000 UNIT/ML VIAL 5000 UNIT (07:43)
[2020-08-05 09:41] LABS: ACT Activated Clotting Time 246 sec (74-137)
[2020-08-05 09:41] LABS: ACT Activated Clotting Time 224 sec (74-137)
[2020-08-05 09:41] LABS: ACT Activated Clotting Time 120 sec (74-137)
[2020-08-05] MEDS: Bupivacaine Mpf 0.5% 30 ML VIAL (09:44)
--- NOTE | 2020-08-05 10:13 | SUR.PHASEI ---
Addendum entered by Adwoa Boothe 08/05/20 11:58: 1155: DR MCBRIDE CALLS FOR UPDATE, AWARE OF SLIGHT LEFT TONGUE DEVIATION, EPIGASTRIC PRESSURE BUBBLE NEED TO BURP SENSATION, ART SBP HANGING RIGHT AROUND 160. ORDER TO GIVE HYDRALAZINE 5 MG IV x 1 NOW. Addendum entered by Adwoa Boothe 08/05/20 11:26: AT 1040: ROLDAN CARMONA CRNA, STILL AT BEDSIDE, STATES SBP WAS LABILE IN O.R.. PATIENT INTERMITTANTLY C/O NAUSEA, THAT SHE NEEDS TO BURP WHICH IS UNCOMFORTABLE, ASKING TO STAND UP AT SIDE OF BED. PATIENT STATES SHE FREQUENTLY HAS SAME FEELING AT HOME OF NEEDING TO BURP BUT UNABLE. ENCOURAGE COUGHING, THROAT CLEARING BUT PATIENT STATES UNABLE. CONTINUE TO MONITOR. STRAIGHT CATH FOR 1000 ML CLEAR, YELLOW URINE. Addendum entered by Adwoa Boothe 08/05/20 11:25: AT 1020, UPDATED DR MCBRIDE RE: BP, INABILITY TO VOID, OTHERWISE STABLE. OKAY FOR SBP TO BE IN 100'S, OTHERWISE SBP PARAMETERS 120-160, MAY STRAIGHT CATH NOW. Original Note: ON ARRIVAL TO PACU: TONGUE VERY SLIGHTLY LEFT OF MIDLINE ON ARRIVAL, ALL OTHER NEURO EXAM NEGATIVE. Hx TIA x 2. NO EDEMA, BLEEDING, OR HEMATOMA TO LEFT NECK. RESTLESS, C/O URGE TO VOID, UNABLE TO USE BEDPAN.
[2020-08-05] MEDS: hydrALAZINE 20 MG/ML Vial 5 MG IV (12:23)
--- NOTE | 2020-08-05 14:50 | NURSING ---
HOB at 30 degrees and Lower extremities elevated to 10 degrees per orders.
[2020-08-05] MEDS: Cefazolin 1 GM/50 ML BAG IV ×2 (15:44→21:49)
--- NOTE | 2020-08-05 15:50 | NURSING ---
pt was able to tolerate clear liquids for an hour now. Will advance to regular. Pt up to bathroom, voided back to bed. Will get pt up to chair with dinner.
--- NOTE | 2020-08-05 16:03 | PN.SURG_ITS ---
Patient Problems: Active and Suspected Problems (Last Reviewed 07/27/20 @ 12:33 by Sharlene Desai) Carotid stenosis, bilateral (Acute) Subjective: Patient has no complaints. She actually feels very good. She has minimal discomfort left neck. - Physical Exam Vitals/I&O's: Vital Signs Temp Pulse Resp BP Pulse Ox 98.7 F 86 18 141/74 H 100 08/05/20 14:19 08/05/20 14:19 08/05/20 14:19 08/05/20 14:19 08/05/20 14:19 Oxygen Flow Rate (L/min) 1 Oxygen Delivery Method Nasal Cannula Weight: 163 lb 12.855 oz Body Mass Index (BMI) 26.4 Intake and Output for Last 24 Hours 08/03/20 08/04/20 08/05/20 23:59 23:59 23:59 Intake Total 2110 / 2110 Output Total 1365 / 1365 Balance 745 / 745 Microbiology Past 72 Hours 08/04/20 09:55 Interface Orders SARS-CoV-2 Antigen (Rapid) - Final Laboratory Results 08/05/20 06:38: Activated Clotting Time 120 08/05/20 08:50: Activated Clotting Time 246 H 08/05/20 09:26: Activated Clotting Time 224 H Current Medications Acetaminophen (Acetaminophen 325 Mg Tablet) 325 - 650 mg PO Q4H PRN PRN PRN Reason: Pain Score 1-10/10 or Headache Hydrocodone Bitart/Acetaminophen (Hydrocodone Bitartrate/Apap 5/325 Tablet) 1 - 2 tablet PO Q6H PRN PRN PRN Reason: Pain Score 1-10 Amlodipine Besylate (Amlodipine 10 Mg Tablet) 10 mg PO DAILY [facility] Aspirin (Aspirin E.C. 81 Mg Tablet) [facility] Atorvastatin Calcium (Atorvastatin Calcium 20 Mg Tablet) 20 mg PO QHS [facility] Lactated Ringer's () 1,000 mls @ 100 mls/hr IV .Q10H [facility] Last Admin: 08/05/20 06:50 Dose: 100 mls/hr Documented by: Cefazolin Sodium () 1 gm in 50 mls @ 150 mls/hr IV Q8 [facility] Stop: 08/05/20 22:19 Last Admin: 08/05/20 15:44 Dose: 150 mls/hr Documented by: Sodium Chloride () 1,000 mls @ 30 mls/hr IV .[id number] [facility]UREA Last Infusion: 08/05/20 11:36 Dose: Infused Documented by: Sodium Chloride () 250 mls @ 15 mls/hr IV .[id number] PRN PRN Reason: Saline Flush Sodium Chloride () 250 mls @ 15 mls/hr IV .[id number] PRN PRN Reason: Additional IVPB Infusion Morphine Sulfate (Morphine 2 Mg/Ml Syringe) 2 - 4 mg IV Q1H PRN PRN PRN Reason: Pain Score 1-10 Morphine Sulfate (Morphine 4 Mg/Ml Syringe) 2 - 4 mg IV Q1H PRN PRN PRN Reason: Pain Score 1-10 Ondansetron HCl (Ondansetron 4 Mg/2 Ml Vial) 4 mg IV Q8H PRN PRN PRN Reason: NAUSEA Sodium Chloride (0.9% Saline Lock 10 Ml Syringe) 10 - 40 ml IV UD PRN PRN Reason: SALINE FLUSH Medical Necessity - Tobacco Use Smoking Status: Former smoker Tobacco Use: Non-smoker Assessment/Plan All Active Problems (Last Reviewed 07/27/20 @ 12:33 by Sharlene Desai) Carotid stenosis, bilateral (Acute) Seborrheic keratosis (Acute) Patient is neurologically intact. Vital signs are stable. She did require 1 straight cath for brief urinary retention but she is now been voiding on her own. IV fluids will be KVO. She will mobilize as tolerated. She will not need home-going clopidogrel. She will be managed with daily aspirin therapy. Bismark Carroll M.D., F.A.C.S.
--- NOTE | 2020-08-05 16:03 | NURSING ---
PT EDUCATED, TAUGHT ON HOW TO USE I.s. uSING AT THIS TIME.
[2020-08-06 02:30] VITALS: BP 158/85; PULSE 100; RESP 18; TEMP 36.9; O2SAT 95
[2020-08-06 05:31] VITALS: BP 155/86; PULSE 92; RESP 18; TEMP 36.3; O2SAT 96
[2020-08-06] MEDS: Ondansetron 4 MG/2 ML Vial IV (05:36)
--- NOTE | 2020-08-06 06:24 | PCM.CAROT ---
General Carotid Note - Subjective Post-Op Day #: 1 - Objective Vital Signs Temp Pulse Resp BP Pulse Ox 97.3 F L 92 18 155/86 H 96 08/06/20 05:31 08/06/20 05:31 08/06/20 05:31 08/06/20 05:31 08/06/20 05:31 Microbiology Past 72 Hours 08/04/20 09:55 SARS-CoV-2 Antigen (Rapid) - Final Interface Orders Laboratory Tests Past 24 Hrs 08/05/20 08/05/20 08/05/20 06:38 08:50 09:26 Activated Clotting Time 120 246 H 224 H Neck: Supple, - - Wound very clean and dry left neck Neurological: Cranial nerves II-XII grossly intact Cardiovascular: Regular rate, Regular Rhythm - Assessment/Plan Excellent progress. The patient denies any neurologic symptoms. She feels good. Vital signs stable. Patient ready for discharge She states that she is on 325 mg aspirin daily per cardiology. She may continue that. She may stop her clopidogrel. Bismark Carroll M.D., F.A.C.S.
[2020-08-06 07:27] VITALS: O2SAT 95
[2020-08-06 08:05] VITALS: BP 151/71; PULSE 89; RESP 16; TEMP 37; O2SAT 99
[2020-08-06] MEDS: Aspirin E.C. 81 MG Tablet PO (08:06)
[2020-08-06] MEDS: amLODIPine 10 MG Tablet PO (08:07)
--- NOTE | 2020-08-06 10:16 | CASEMGMT ---
RN CM attempted to complete CM assessment at this time. Patient discharged prior to assessment. Patient lives with and is established with PCP. No needs identified.
== END 2020-08-06 09:54 | disposition home or self-care (01) | DRG 27 ==
LOC: ACINP 05:32 → MS3 08:13
PROVIDERS: Admitting Provider Surgery; PCP Family Medicine; Visit Provider Surgery
PROC: 03HY32Z Insertion of Monitoring Device into Upper Artery, Percutaneous Approach (ICD-10-PCS; CPT 35301; principal; 2020-08-05 07:10)
DX: I65.23 Occlusion and stenosis of bilateral carotid arteries (principal); H81.10 Benign paroxysmal vertigo, unspecified ear; L82.1 Other seborrheic keratosis; I10 Essential (primary) hypertension; E78.00 Pure hypercholesterolemia, unspecified; Z87.891 Personal history of nicotine dependence; Z79.82 Long term (current) use of aspirin; R33.9 Retention of urine, unspecified; Z86.73 Personal history of transient ischemic attack (TIA), and cerebral infarction without residual deficits; Z95.5 Presence of coronary angioplasty implant and graft; Z90.49 Acquired absence of other specified parts of digestive tract
CPT/HCPCS: 85347; 87426; 88304; 88311; 93005; 94762; 99251; C9803; J7030; J7040; J7050; J7120; G0463; J2405

== ENCOUNTER → 2020-09-11 09:58 | Outpatient (CLI) | payer MEDICARE, SELFPAY ==
--- NOTE | 2020-09-11 10:01 | CDU_ITS ---
Reason For Study: Carotid stenosis, S/P Lt CEA Rt. Velocities/BP Lt. Velocities/BP Prox CCA 103.4/13.4 cm/sec. Prox CCA 110.3/22.6 cm/sec. Mid CCA 89.1/16 cm/sec. Mid CCA 79.1/17 cm/sec. Dist CCA 78.6/13.4 cm/sec. Dist CCA 79.1/17 cm/sec. Prox ICA 176.2/40.2 cm/sec. Prox ICA 53.2/12.6 cm/sec. Mid ICA 137.5/29.8 cm/sec. Mid ICA 71.6/21.2 cm/sec. Dist ICA 83.9/24.9 cm/sec. Dist ICA 83.9/23.7 cm/sec. Rt. ICA/CCA = 2.00. Lt. ICA/CCA = 1.06. Prox ECA 111.2/8.2 cm/sec. Prox ECA 121.1/18.8 cm/sec. Rt. Vert. 34.3/8.8 cm/sec. Lt. Vert. 53.2/11.4 cm/sec. Right Extracranial There is homogeneous, smooth atherosclerotic plaque noted in the right common carotid artery. There is heterogeneous, irregular atherosclerotic plaque noted in the right internal carotid artery. Unable to match elevated velocities in the right proximal ICA as compared to study done on 03/11/2020. There is homogeneous, smooth atherosclerotic plaque noted in the right external carotid artery. Antegrade flow is noted in the right vertebral artery. Left Extracranial There is homogeneous, smooth atherosclerotic plaque noted in the left common carotid artery. There is homogeneous, smooth atherosclerotic plaque noted in the left internal carotid artery. There is heterogeneous, irregular atherosclerotic plaque noted in the left external carotid artery. Antegrade flow is noted in the left vertebral artery. Vascularized structure noted in the left thyroid measuring approximently 2.20 x 1.43 x 3.03 cm. Procedure Carotid Duplex [id number]. This is a Carotid Duplex examination using B-mode, color flow and specral Doppler. Exam performed in department. Interpretation Summary Smooth plaque located within the right common carotid artery with irregular plaque within the right internal carotid artery 50 to 69% stenosis right proximal internal carotid Less than 50% stenosis right external carotid Smooth plaque within the left common carotid with additional smooth postoperative changes left carotid bulb and proximal internal carotid Less than 50% stenosis left internal carotid Less than 50% stenosis left external carotid Patent and antegrade vertebrals bilaterally Left thyroid 2.2 x 1.4 x 3 cm solid nodule with vascular flow noted Improvement is noted in the left internal carotid from the previous exam of March 11, 2020 Left thyroid nodule also previously noted March 11, 2020 Ordering Physician: Bismark Carroll Referring Physician: Raj Santana M.D. Performed By: Chelo Romo RVT
== END ==
PROVIDERS: PCP Family Medicine; Referring Provider Surgery; Visit Provider Surgery
DX: I65.23 Occlusion and stenosis of bilateral carotid arteries (principal)
CPT/HCPCS: 93880

== ENCOUNTER → 2020-10-05 08:11 | Outpatient (CLI) | payer MEDICARE, SELFPAY ==
[2020-10-05 10:37] LABS: Anion Gap 4 (5-15); BUN 10 mg/dL (7-18); BUN/Creat Ratio 10.5 RATIO (10-20); CPK Total, Creatine Kinase 64 U/L (26-192); Calcium,Total 9.9 mg/dL (8.5-10.1); Chloride 106 mmol/L (98-107); Cholesterol 201 mg/dL (200); Creatinine, Serum 0.95 mg/dL (0.55-1.02); EST Glomerular Filtration Rate 62 mL/min (>60); Est Glom Filt Rate - Afr Amer 74 mL/min (>60); Glucose 84 mg/dL (74-106); High Density Lipoprotein 69 mg/dL; Potassium 3.7 mmol/L (3.5-5.1); Sodium Level 141 mmol/L (136-145); Triglycerides 120 mg/dL; Very Low Density Lipoprotein 24 mg/dL (5-40)
== END ==
PROVIDERS: PCP Family Medicine; Referring Provider Internal Medicine Cardiovascular Disease; Visit Provider Internal Medicine Cardiovascular Disease
DX: I10 Essential (primary) hypertension (principal); I25.10 Atherosclerotic heart disease of native coronary artery without angina pectoris; E78.00 Pure hypercholesterolemia, unspecified
CPT/HCPCS: 36415; 80048; 80061; 82550

== ENCOUNTER → 2021-04-19 12:15 | Outpatient (CLI) | payer MEDICARE, SELFPAY ==
[2021-04-19 16:34] LABS: Probe Check PASS; Specimen Processing Control PASS
== END ==
PROVIDERS: PCP Family Medicine; Referring Provider Physician Assistant; Visit Provider Physician Assistant
DX: U07.1 COVID-19 (principal)
CPT/HCPCS: 87635; U0005; U0003

== ENCOUNTER → 2021-10-21 09:09 | Outpatient (CLI) | payer MEDICARE, SELFPAY ==
[2021-10-21 10:48] LABS: ALB/GLOB Ratio 1.1 RATIO (0.9-2.4); AST(SGOT) 20 U/L (15-37); Alanine Aminotransfer ALT/SGPT 27 U/L (13-56); Alkaline Phosphatase 109 U/L (45-117); Anion Gap 3 (5-15); BUN 13 mg/dL (7-18); BUN/Creat Ratio 13.1 RATIO (10-20); Calcium,Total 9.8 mg/dL (8.5-10.1); Chloride 105 mmol/L (98-107); Cholesterol 172 mg/dL (200); Creatinine, Serum 0.99 mg/dL (0.55-1.02); EST Glomerular Filtration Rate 58 mL/min (>60); Est Glom Filt Rate - Afr Amer 71 mL/min (>60); Globulin 3.8 g/dL (2.2-4.2); Glucose 88 mg/dL (74-106); High Density Lipoprotein 66 mg/dL; Potassium 3.8 mmol/L (3.5-5.1); Protein, Total 7.8 g/dL (6.4-8.2); Sodium Level 141 mmol/L (136-145); Triglycerides 90 mg/dL; Very Low Density Lipoprotein 18 mg/dL (5-40)
== END ==
PROVIDERS: PCP Family Medicine
DX: I25.10 Atherosclerotic heart disease of native coronary artery without angina pectoris (principal)
CPT/HCPCS: 36415; 80053; 80061

== ENCOUNTER 2021-11-01 08:53 | Outpatient (CLI) | payer MEDICARE, SELFPAY ==
--- NOTE | 2021-11-01 09:03 | CDU_ITS ---
Reason For Study: Carotid stenosis Rt. Velocities/BP Lt. Velocities/BP Prox CCA 94.3/13.4 cm/sec. Prox CCA 97.2/20.4 cm/sec. Mid CCA 94.3/16 cm/sec. Mid CCA 81.9/13.8 cm/sec. Dist CCA 72.1/16 cm/sec. Dist CCA 75.3/13.8 cm/sec. Prox ICA 166.6/42.2 cm/sec. Prox ICA 76.5/18.8 cm/sec. Mid ICA 123.5/20.4 cm/sec. Mid ICA 67.9/21.2 cm/sec. Dist ICA 90/24.3 cm/sec. Dist ICA 92.5/26.2 cm/sec. Rt. ICA/CCA = 1.77. Lt. ICA/CCA = 1.13. Prox ECA 126.9/12.1 cm/sec. Prox ECA 145.5/18.2 cm/sec. Rt. Vert. 46.5/10.2 cm/sec. Lt. Vert. 54.4/15.1 cm/sec. Right Extracranial There is homogeneous, smooth atherosclerotic plaque noted in the right common carotid artery. There is heterogeneous, irregular atherosclerotic plaque noted in the right internal carotid artery. There is homogeneous, smooth atherosclerotic plaque noted in the right external carotid artery. Antegrade flow is noted in the right vertebral artery. Left Extracranial There is homogeneous, smooth atherosclerotic plaque noted in the left common carotid artery. There is homogeneous, smooth atherosclerotic plaque noted in the left internal carotid artery. There is heterogeneous, irregular atherosclerotic plaque noted in the left external carotid artery. Antegrade flow is noted in the left vertebral artery. Vascularized structure noted in the left thyroid measuring approximately 1.62 x 1.52 x 2.70 cm. VL/Carotid Duplex Ultrasound Interpretation Summary Irregular plaque at the proximal right internal carotid artery with 50 to 69% s tenosis. Less than 50% stenosis right external carotid artery Postoperative changes of the left carotid bulb and proximal internal carotid wi thout significant plaque. Less than 50% stenosis left internal carotid Less than 50% stenosis left external carotid Patent and antegrade vertebrals bilaterally Left thyroid nodule 1.62 x 1.52 x 2.7 cm with vascular flow. Previously on 2020 left thyroid nodules felt to have measured 2 x 1.43 x 3.03 cm Ordering Physician: Bismark Carroll Referring Physician: Raj Santana M.D. Performed By: Chelo Romo RVT
== END 2021-11-01 23:59 | disposition home or self-care (01) ==
PROVIDERS: PCP Family Medicine; Referring Provider Surgery; Visit Provider Surgery
DX: I65.23 Occlusion and stenosis of bilateral carotid arteries (principal)
CPT/HCPCS: 93880

== ENCOUNTER → 2021-11-02 09:57 | Outpatient (CLI) | payer MEDICARE, SELFPAY ==
--- NOTE | 2021-11-02 10:00 | ECHOD_ITS ---
Reason For Study: MURMUR Procedure This was a 2D Doppler, Color Flow transthoracic echocardiogram. Exam performed in department. Left Ventricle Normal LV size. Left ventricular systolic function is normal. The estimated ejection fraction is 60 %. Stage 1 diastolic dysfunction. No regional wall motion abnormalities noted. Right Ventricle Normal RV size. Normal systolic function. Atria Normal left atrium. Normal right atrium. Mitral Valve Normal mitral valve. Pulmonic Valve Normal pulmonic valve. Great Vessels Normal aortic root. The pulmonary artery is normal size. Normal inferior vena cava. Pericardium/Pleural No pericardial effusion. MMode/2D Measurements & Calculations LVIDd: 4.1 cm IVSd: 1.1 cm Ao root diam: 3.1 cm LVIDs: 2.7 cm LVPWd: 1.1 cm RVDd: 2.8 cm FS: 34.5 % LAV(MOD-bp): 30.4 ml SV(MOD-sp4): 38.8 ml LVAd ap4: 22.6 cm2 LAV(MOD-bp) Indexed: 16.8 ml/m2 LVLd ap4: 7.3 cm LAV(MOD-sp2): 31.2 ml EDV(MOD-sp4): 57.4 ml LAV(MOD-sp4): 27.1 ml EDV(sp4-el): 59.7 ml LVAs ap4: 11.4 cm2 LVLs ap4: 6.0 cm ESV(MOD-sp4): 18.5 ml ESV(sp4-el): 18.2 ml EF(MOD-sp4): 67.7 % EF(sp4-el): 69.5 % SV(sp4-el): 41.4 ml LA dimension(2D): 3.3 cm LA A4 area: 12.5 cm2 RA A4 area: 10.5 cm2 Time Measurements MV dec time: 0.21 sec Doppler Measurements & Calculations MV E max manolo: 100.9 cm/sec Lat Peak E' Manolo: 7.1 cm/sec Med Peak E' Manolo: 10.7 cm/sec MV A max manolo: 93.9 cm/sec E/E' lat: 14.2 E/E' med: 9.5 MV E/A: 1.1 Ao V2 max: 138.9 cm/sec LV V1 max: 133.9 cm/sec PA V2 max: 99.3 cm/sec Ao max P.7 mmHg LV V1 max P.2 mmHg ECHO/Echo Complete Interpretation Summary Normal LV size. Left ventricular systolic function is normal. The estimated ejection fraction is 60 %. Stage 1 diastolic dysfunction. Structurally normal valves. Ordering Physician: CANDICE GRAF Referring Physician: GERRY MONSON Performed By: Jazmyne Hidalgo RDCS
== END ==
PROVIDERS: PCP Family Medicine
DX: R01.1 Cardiac murmur, unspecified (principal)
CPT/HCPCS: 93306

== ENCOUNTER 2021-11-11 13:34 | Inpatient (IN) | payer MEDICARE, SELFPAY ==
[2021-11-11 13:36] VITALS: BP 175/91; PULSE 90; RESP 18; TEMP 36.6; O2SAT 99; BMI 27.8
--- NOTE | 2021-11-11 13:44 | EKG12_ITS ---
Test Reason : REPEAT-ELEV TROP Blood Pressure : / mmHG Vent. Rate : 092 BPM Atrial Rate : 092 BPM P-R Int : 194 ms QRS Dur : 088 ms QT Int : 362 ms P-R-T Axes : 049 -29 080 degrees QTc Int : 447 ms Normal sinus rhythm Inferior infarct , age undetermined Abnormal ECG Confirmed by JORDAN LEES, NIKKO ([id number]), news videotape editor LAURA GOOD ([id number]) on 11/15/2021 10:46:54 A M Referred By: ANDREA Confirmed By:DALLAS ORTEGA MD
--- NOTE | 2021-11-11 13:44 | RAD_ITS ---
STUDY: X-RAY CHEST REASON FOR EXAM: Female, 71 years old. chest pain TECHNIQUE: AP COMPARISON: None. FINDINGS: EKG leads project over the chest. The lungs are clear and expanded. There is no demonstrated pleural abnormality. Normal size heart. Normal mediastinum and lisa. Normal visualized pulmonary arteries. There is atherosclerotic calcification of the aortic arch with tortuosity. Normal visualized thoracic spine. Normal visualized ribs, clavicles, and shoulders. There is no demonstrated abnormality of the visualized soft tissue structures of the upper abdomen. RAD/Chest 1 View (Portable) IMPRESSION: Nonacute portable x-ray examination of the chest. Electronically Signed: Silver Velazquez MD ([place]) at 14:11 EDT ,
[2021-11-11] MEDS: Aspirin 81 MG TAB.CHEW 324 MG PO (13:48)
[2021-11-11 14:00] LABS: Absolute Lymphocyte Count 4.62 X10^3/uL (0.83-4.51); Absolute Neutrophil Count 4.6 X10^3/uL (2.0-7.7); Basophil# 0.11 X10^3/uL; Eosinophil# 0.56 X10^3/uL; Eosinophils% 4.9 % (0-5); Hematocrit 46.2 % (37-47); Hemoglobin 15.6 g/dL (12.0-15.0); Lymphocyte # 4.62 X10^3/ul (0.83-4.51); Lymphocyte % 40.7 % (19-41); Mean Corp Hgb Conc 33.8 g/dL (32-36); Mean Corpuscular Hgb 32.1 pg (27.0-32.0); Mean Corpuscular Volume 95.1 fL (81-99); Monocyte# 1.46 X10^3/uL; Monocyte% 12.9 % (0-10); NRBC Flagged by Analyzer 0 % (0-5); Neutrophil # 4.56 X10^3/uL (2.7-7.7); Neutrophil % 40.1 % (47-70); Platelet Count 462 K/mm3 (150-450); RBC Distribution Width CV 13.3 % (11.6-14.6); RBC Distribution Width SD 47.1 fl (35.1-43.9); Red Blood Count 4.86 M/mm3 (4.2-5.4); White Blood Count 11.4 K/mm3 (4.4-11.0)
--- NOTE | 2021-11-11 14:09 | ED.VIS.CHEST ---
HPI <YARELIS Thompson - Last Filed: 11/11/21 16:57> History of Present Illness Chief Complaint: Chest Pain Narrative Narrative: 71-year-old female with PMH of HTN, HLD, CAD with stent x1, carotid stenosis presents with chest pain. She developed sharp midsternal sudden onset pain around 1 PM. Around 12:30 she had eaten an omelette with sahu and pancakes at [employer]. The pain waxed and waned between sharp and dull but did seem worse with walking to her truck and resolved with sitting in the vehicle. She reports having similar pain before or a feeling like the food is stuck in her chest. No shortness of breath, nausea, vomiting, or diaphoresis. She also had chest pain last night while she was sweeping her kitchen floors but denies normally getting exertional pain and she attributed this to musculoskeletal pain. She has a remote cardiac history with 1 stent placed over 15 years ago. She follows with Dr. Bentley at [facility] and had her routine follow-up 1 week ago. She had an echo done. She is not sure when her last stress test was. PFSH <YARELIS Thompson - Last Filed: 11/11/21 16:57> [facility] Medical History Carotid stenosis, bilateral Gastrointestinal complaints Heart disease High cholesterol Hypertension Vascular disease Vertigo Home Medications amlodipine 10 mg tablet 10 mg PO DAILY 09/12/18 [History Last Taken 11/11/21] simvastatin 40 mg tablet 40 mg PO QHS 09/12/18 [History Last Taken 11/10/21] aspirin 81 mg PO DAILY 07/31/20 [History Last Taken 11/10/21] cholecalciferol (vitamin D3) 50 mcg PO BID 11/11/21 [History Last Taken 11/11/21] fluticasone propionate 2 spray INTRANASAL DAILY PRN 11/11/21 [History Last Taken Unknown] Allergy/AdvReac Type Severity Reaction Status Date / Time hydrochlorothiazide Allergy Severe Blood Verified 11/11/21 13:39 Pressure Sporadic Family History Mother Cancer Brother Cancer Surgical History History of carotid endarterectomy (~07/2020) History of cholecystectomy History of coronary artery stent placement History of sinus surgery Social History Smoking Status: Former smoker alcohol intake: never substance use type: does not use what type of physical activity do you participate in: walking frequency: daily ROS <YARELIS Thmopson - Last Filed: 11/11/21 16:57> ROS ED ROS Narrative Constitutional: Negative for fever, chills, malaise. Eyes: Negative for visual change. ENT: Negative for sore throat, ear pain, rhinorrhea. CVS: Positive for chest pain. Negative for palpitations, syncope. Respiratory: Negative for shortness of breath, cough, orthopnea. GI: Negative for abdominal pain, nausea, vomiting, diarrhea, constipation, melena, hematochezia. : Negative for dysuria, hematuria or frequency. Neuro: Negative for headache, motor/sensory dysfunction. Skin: Negative for rash, abscess, or wound. Musc: Negative for joint pain, swelling, trauma. Heme: Negative for easy bruising, bleeding, lymphadenopathy. EXAM <YARELIS Thompson - Last Filed: 11/11/21 16:57> Physical Exam Narrative Exam Narrative: CONST: Patient sitting in no acute distress. EYES: Normal inspection. ENT: Normal inspection, moist mucous membranes. NECK: Normal inspection. RESP: No respiratory distress, CTAB. CVS: Regular rate and rhythm, no murmur, no gallop. ABD: Soft and nontender, no guarding or rebound, nondistended, no hepatosplenomegaly. Back: Normal inspection. SKIN: Color normal, no rash, warm, dry, intact. EXTREMITIES: Normal appearance, no pedal edema. NEURO: Oriented x4. PSYCH: Normal affect. Const Vital Signs: 11/11/21 13:36 11/11/21 13:46 11/11/21 15:16 Temperature 97.9 F Temperature Source Temporal Pulse Rate 90 83 Respiratory Rate 18 17 Blood Pressure 175/91 H 159/82 H Blood Pressure Mean 119 107 Pulse Ox 99 97 Oxygen Delivery Method Room Air Room Air Room Air 11/11/21 16:39 Temperature 98 F Temperature Source Temporal Pulse Rate 92 Respiratory Rate 16 Blood Pressure 138/74 H Blood Pressure Mean 95 Pulse Ox 99 Oxygen Delivery Method Room Air <Dr. Ponce Finn MD - Last Filed: 11/11/21 22:54> Physical Exam Const Vital Signs: 11/11/21 13:36 11/11/21 13:46 11/11/21 15:16 Temperature 97.9 F Temperature Source Temporal Pulse Rate 90 83 Respiratory Rate 18 17 Blood Pressure 175/91 H 159/82 H Blood Pressure Mean 119 107 Pulse Ox 99 97 Oxygen Delivery Method Room Air Room Air Room Air 11/11/21 16:39 Temperature 98 F Temperature Source Temporal Pulse Rate 92 Respiratory Rate 16 Blood Pressure 138/74 H Blood Pressure Mean 95 Pulse Ox 99 Oxygen Delivery Method Room Air <YARELIS Thompson - Last Filed: 11/11/21 16:57> Heart Score History: Moderately Suspicious ECG: Normal Age: >/= 65 years Risk Factors: >/= 3 Risk Factors or History of CAD Troponin: >1 - <3 Normal Limit Score: 6 MDM <YARELIS Thompson - Last Filed: 11/11/21 16:57> [facility] MDM Narrative Medical decision making narrative: Patient presents with chest pain. She seems to be reporting occasional exertional chest pain but today the episode was after eating. She appears well and nontoxic. She was hypertensive at 175/91, otherwise normal vital signs. Her medical exam is unremarkable. EKG is normal sinus rhythm with no acute ischemic changes. Basic labs are unremarkable. High-sensitivity troponin is 40, delta 185. Chest x-ray is negative. Patient was treated with full dose aspirin and a GI cocktail which resolved her pain. Initial EKG was normal sinus rhythm. After resolution of her pain when the delta troponin was high a repeat was obtained. It is still normal sinus rhythm but the V1 through V3 leads have flattened out and now have T wave inversions. I am concerned she had an acute coronary event. This was relayed to the on-call measurement specialist and hospitalist who recommended getting a CTA to rule out PE. At this time they advised against heparin as she has no active pain. 1. NSTEMI Lab Data Labs: Laboratory Results - last 24 hr 11/11/21 11/11/21 11/11/21 13:40 13:40 15:40 WBC 11.4 H RBC 4.86 Hgb 15.6 H Hct 46.2 MCV 95.1 MCH 32.1 H MCHC 33.8 RDW Std Deviation 47.1 H RDW Coeff of Rolanda 13.3 Plt Count 462 H MPV 10.0 Immature Gran % (Auto) 0.400 Neut % (Auto) 40.1 L Lymph % (Auto) 40.7 Anderson % (Auto) 12.9 H Eos % (Auto) 4.9 Baso % (Auto) 1.0 Absolute Neuts (auto) 4.6 Absolute Lymphs (auto) 4.62 H Nucleated RBC % 0 Sodium 137 Potassium 3.4 L Chloride 102 Carbon Dioxide 29.0 Anion Gap 6 BUN 13 Creatinine 1.18 H Estim Creat Clear Calc 39.75 Est GFR (MDRD) Af Amer 58 L Est GFR (MDRD) Non-Af 48 L BUN/Creatinine Ratio 11.0 Glucose 178 H Calcium 10.2 H Troponin I High Sens 40 185 H* Radiography Chest X-Ray - ED: 1 View, Read by ED Physician, Read by Radiologist, Normal, Heart, Lungs, Mediastinum, Bony Structures and No Acute Disease Diagnostic Testing: Clinical Impression(s) from Imaging Studies Chest X-Ray 11/11/21 13:44 IMPRESSION: Nonacute portable x-ray examination of the chest. Electronically Signed: Silver Velazquez MD (Brooks) at 14:11 EDT , Chest CTA 11/11/21 16:51 IMPRESSION: ASHD. No acute cardiopulmonary pathology. No evidence for pulmonary embolus. Incidental finding of multiple tiny solid thyroid nodules which may be better assessed with thyroid sonogram if clinically warranted Electronically Signed: Flip Jacobs MD at 18:14 EDT , ED attending interpretation of chest x-ray shows normal heart size, no acute infiltrate, edema, or effusion. EKG Initial EKG: Attestation: I personally reviewed and interpreted this EKG as follows: Interpretation: Sinus Rhythm (90 bpm, normal intervals, no acute ischemic changes) <Dr. Ponce Finn MD - Last Filed: 11/11/21 22:54> MDM MDM Narrative Medical decision making narrative: I also saw this patient. She told me she had chest pain this morning. It is waxing and waning off and on for a few hours. She has had this before and she usually takes Motrin which helps. She states it is gone now. She did have some diaphoresis with this. She states that has happened the last few times she has had this. Patient did have one cardiac stent done about 16 years ago. Exam shows clear lungs and heart regular. She looks comfortable. She is not diaphoretic. Abdomen is benign. No leg pain or tenderness. Her first EKG did show some mild J-point elevation in V1 V2. It was still concave in appearance. I do not think this represented acute STEMI. Her first troponin was normal. But the second 1 did increase to 185. I also asked for repeat EKG. This shows loss of her T wave anteriorly. It is starting to get a little bit negative. I think her symptoms along with troponin this EKG indicate most likely cardiac ischemia. These images were sent to cardiology. Hospitalist also saw the patient. They would like to get CTA which is ordered and pending at this time Lab Data Attestation: I reviewed the patient's lab results. Labs: Laboratory Results - last 24 hr 11/11/21 11/11/21 11/11/21 13:40 13:40 15:40 WBC 11.4 H RBC 4.86 Hgb 15.6 H Hct 46.2 MCV 95.1 MCH 32.1 H MCHC 33.8 RDW Std Deviation 47.1 H RDW Coeff of Rolanda 13.3 Plt Count 462 H MPV 10.0 Immature Gran % (Auto) 0.400 Neut % (Auto) 40.1 L Lymph % (Auto) 40.7 Anderson % (Auto) 12.9 H Eos % (Auto) 4.9 Baso % (Auto) 1.0 Absolute Neuts (auto) 4.6 Absolute Lymphs (auto) 4.62 H Nucleated RBC % 0 Sodium 137 Potassium 3.4 L Chloride 102 Carbon Dioxide 29.0 Anion Gap 6 BUN 13 Creatinine 1.18 H Estim Creat Clear Calc 39.75 Est GFR (MDRD) Af Amer 58 L Est GFR (MDRD) Non-Af 48 L BUN/Creatinine Ratio 11.0 Glucose 178 H Calcium 10.2 H Troponin I High Sens 40 185 H* Radiography Diagnostic Testing: Clinical Impression(s) from Imaging Studies Chest X-Ray 11/11/21 13:44 IMPRESSION: Nonacute portable x-ray examination of the chest. Electronically Signed: Silver Velazquez MD (Brooks) at 14:11 EDT , Chest CTA 11/11/21 16:51 IMPRESSION: ASHD. No acute cardiopulmonary pathology. No evidence for pulmonary embolus. Incidental finding of multiple tiny solid thyroid nodules which may be better assessed with thyroid sonogram if clinically warranted Electronically Signed: Flip Jacobs MD at 18:14 EDT , Discharge Plan Disposition Disposition: Acute Care Hospital [facility] Discharge Date/Time: 11/11/21 18:14
[2021-11-11 14:15] LABS: Anion Gap 6 (5-15); BUN 13 mg/dL (7-18); Calcium,Total 10.2 mg/dL (8.5-10.1); Chloride 102 mmol/L (98-107); Creatinine, Serum 1.18 mg/dL (0.55-1.02); EST Glomerular Filtration Rate 48 mL/min (>60); Est Glom Filt Rate - Afr Amer 58 mL/min (>60); Estimated Creatinine Clearance 39.75 ml/min; Glucose 178 mg/dL (74-106); Potassium 3.4 mmol/L (3.5-5.1); Sodium Level 137 mmol/L (136-145); Troponin-I HS 40 pg/mL (3.0-54.0)
[2021-11-11] MEDS: Mag Hydrox/Al Hydrox/Simeth 30 ML UDC PO (14:16)
[2021-11-11 15:16] VITALS: BP 159/82; PULSE 83; RESP 17; O2SAT 97
[2021-11-11 16:29] LABS: Troponin-I HS 185 pg/mL (3.0-54.0)
--- NOTE | 2021-11-11 16:30 | EKG12_ITS ---
Test Reason : CP Blood Pressure : / mmHG Vent. Rate : 090 BPM Atrial Rate : 090 BPM P-R Int : 186 ms QRS Dur : 106 ms QT Int : 378 ms P-R-T Axes : 054 011 077 degrees QTc Int : 462 ms Normal sinus rhythm Normal ECG Confirmed by JORDAN LEES, NIKKO ([id number]), order editor LAURA GOOD ([id number]) on 11/15/2021 10:47:13 A M Referred By: RAYNA/GERRI Confirmed By:DALLAS ORTEGA MD
[2021-11-11 16:39] VITALS: BP 138/74; PULSE 92; RESP 16; TEMP 36.6; O2SAT 99
--- NOTE | 2021-11-11 16:51 | CT_ITS ---
STUDY: CTA CHEST REASON FOR EXAM: Female, 71 years old. chest pain, rule out PE RADIATION DOSAGE (If Supplied By Facility): CTDIvol = ( 6.67 ) mGy, DLP = ( 233.18 ) mGycm TECHNIQUE: The examination was performed with the intravenous administration of IV 100mL Isovue-370. Post-processing of the angiographic images was performed, with multiplanar reformation and 3D reconstruction. Individualized dose optimization techniques were used for this CT. COMPARISON: None. FINDINGS: Normal enhancement of the main pulmonary artery and right and left pulmonary arteries. Normal enhancement of the bilateral peripheral pulmonary arteries. There is no demonstrated pulmonary embolism. Mild atherosclerotic changes without evidence for aneurysm There is no demonstrated aortic dissection. Heart is normal in size and there is multivessel coronary artery stents. Normal mediastinum. Normal hilar regions. Multiple tiny thyroid nodules of uncertain significance. Normal visualized trachea and bronchi. The lungs are well expanded. Normal pulmonary parenchyma. Normal pleura. Normal chest wall structures. Dorsal spine demonstrates degenerative changes There is a simple cyst in left renal cortex as well as a very small hemorrhagic cyst measuring approximately [address]/CTA Chest W/WO Contrast IMPRESSION: ASHD. No acute cardiopulmonary pathology. No evidence for pulmonary embolus. Incidental finding of multiple tiny solid thyroid nodules which may be better assessed with thyroid sonogram if clinically warranted Electronically Signed: Flip Jacobs MD at 18:14 EDT ,
--- NOTE | 2021-11-11 16:54 | HP.PCM.HOS_ITS ---
HPI - General General Date of Admission: 11/11/21 Date of Service: 11/11/21 Chief Complaint: Chest pain HPI Narrative SYBIL SUERO, is a 71 F who presents to the emergency room at [facility] with a chief complaint of substernal chest discomfort which she describes as feeling sharp in nature, it started approximately 130 this afternoon and lasted for approximately an hour. Patient stated it came on after she had something to eat today. 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 Patient states she recently had an echocardiogram here, that echocardiogram showed a normal EF at 60%. Work-up in the emergency room included an EKG which showed some nonspecific ST-T wave changes in the anterior wall leads, no ST elevation was noted, chest x-ray showed no acute process, labs showed an elevated white blood cell count at 11.4, hemoglobin was 15.6, potassium was 3.4, and creatinine was 1.18. Glucose was 178, and calcium was 10.2. Patient's troponin was elevated-her first troponin done at 1340 was 40, the second 1 was elevated at 185-this last 1 was performed at 1540. I discussed the case with cardiology, cardiology requested that the patient undergo CTA of the chest, they further requested that the patient be placed on a heparin drip. Patient will be admitted to PCU for non-STEMI, she will be paced on a heparin drip, she will continue on an aspirin a day-patient takes 325 mg daily, patient states she cannot tolerate a beta-nneka due to the fact it makes her sleepy. Patient does take a statin at home. [facility] Medical History Carotid stenosis, bilateral Gastrointestinal complaints Heart disease High cholesterol Hypertension Vascular disease Vertigo Home Medications amlodipine 10 mg tablet 10 mg PO DAILY 09/12/18 [History Last Taken 11/11/21] simvastatin 40 mg tablet 40 mg PO QHS 09/12/18 [History Last Taken 11/10/21] aspirin 81 mg PO DAILY 07/31/20 [History Last Taken 11/10/21] cholecalciferol (vitamin D3) 50 mcg PO BID 11/11/21 [History Last Taken 11/11/21] fluticasone propionate 2 spray INTRANASAL DAILY PRN 11/11/21 [History Last Taken Unknown] Allergy/AdvReac Type Severity Reaction Status Date / Time hydrochlorothiazide Allergy Severe Blood Verified 11/11/21 13:39 Pressure Sporadic Family History Mother Cancer Brother Cancer Surgical History History of carotid endarterectomy (~07/2020) History of cholecystectomy History of coronary artery stent placement History of sinus surgery Social History Smoking Status: Former smoker alcohol intake: never substance use type: does not use what type of physical activity do you participate in: walking frequency: daily ROS Constitutional Constitutional: Denies anorexia, change in weight, fever(s), night sweats or weakness Eyes Eyes: Denies blurry vision, change in vision, discharge from eye(s) or eye pain Cardiovascular Cardiovascular: Reports chest pain; Denies claudication, dyspnea on exertion, edema, lightheadedness, orthopnea or palpitations Respiratory/Chest Respiratory/Chest: Denies cough, dyspnea, hemoptysis, shortness of breath at rest or shortness of breath with exertion Gastrointestinal Gastrointestinal: Denies abdominal pain, constipation, diarrhea, hematemesis, hematochezia, melena, nausea or vomiting Genitourinary Genitourinary: Denies dysuria, hematuria, urinary frequency, urinary hesitancy, urinary incontinence or urinary urgency Musculoskeletal Musculoskeletal: Denies back pain, joint pain, joint stiffness, joint swelling, myalgias or neck pain Neurologic Neurologic: Denies abnormal gait, abnormal speech, confusion, disequilibrium, dizziness, focal weakness, headache(s), loss of vision, numbness, other visual d isturbances, paresthesias, syncope or tingling Psychiatric Psychiatric: Denies anxiety, cognitive impairment, depression, irritability, mood swings or suicidal ideation Endocrine Endocrinology: Denies change in body appearance, cold intolerance, excessive sweating, heat intolerance, polydipsia or polyuria Hematologic/Lymphatic Hematologic/Lymphatic: Denies none, anemia, easy bleeding, easy bruising or lymphadenopathy Allergic/Immunologic Allergic/Immunologic: Denies rhinitis, urticaria, eczemia or asthma Vital Signs Vital Signs Vital Signs: 11/11/21 13:36 11/11/21 13:46 11/11/21 15:16 Temperature 97.9 F Temperature Source Temporal Pulse Rate 90 83 Respiratory Rate 18 17 Blood Pressure 175/91 H 159/82 H Blood Pressure Mean 119 107 Pulse Ox 99 97 Oxygen Delivery Method Room Air Room Air Room Air 11/11/21 16:39 Temperature 98 F Temperature Source Temporal Pulse Rate 92 Respiratory Rate 16 Blood Pressure 138/74 H Blood Pressure Mean 95 Pulse Ox 99 Oxygen Delivery Method Room Air Weight Weight: 78.1 kg Body Mass Index (BMI) 27.8 Physical Exam Narrative No chest wall discomfort could be elicited on palpation of the precordial area Const alert, oriented x3, no apparent distress and healthy appearing General Appearance: cooperative, well kempt and well developed Orientation / Consciousness: awake, oriented to person, oriented to place and oriented to time HEENT normocephalic, head/scalp atraumatic, hearing grossly normal bilaterally and moist oral mucous membranes Eyes PERRL, EOMs intact bilaterally and conjunctivae normal Neck nuchal rigidity, supple, no JVD, thyroid normal and no carotid bruits General: trachea midline Resp normal respiratory effort, no retractions, no use of accessory muscles and clear to auscultation bilaterally Auscultation: Negative for rales, rhonchi or wheezes Cardio regular rate, regular rhythm, S1 normal heart sound, S2 normal heart sound, no murmurs, no rub and no gallops GI normal to inspection, nondistended, normoactive bowel sounds, soft to palpation, non-tender and non-distended Extremity no clubbing, cyanosis or edema Skin no rashes or lesions noted, no wounds and skin turgor normal General Skin Exam: no breakdown Neuro oriented x3, CN's II-XII intact bilaterally, no focal motor deficits and no sensory deficits noted Sensorium / Orientation: awake and alert Speech: speech normal Psych affect normal Results Lab / Micro Data Result Diagrams: 11/11/21 13:40 11/11/21 13:40 Labs: Laboratory Results - last 24 hr 11/11/21 13:40: WBC 11.4 H, RBC 4.86, Hgb 15.6 H, Hct 46.2, MCV 95.1, MCH 32.1 H , MCHC 33.8, RDW Std Deviation 47.1 H, RDW Coeff of Rolanda 13.3, Plt Count 462 H, MPV 10.0, Immature Gran % (Auto) 0.400, Neut % (Auto) 40.1 L, Lymph % (Auto) 40.7, [place] % (Auto) 12.9 H, Eos % (Auto) 4.9, Baso % (Auto) 1.0, Absolute Neuts (auto) 4.6, Absolute Lymphs (auto) 4.62 H, Nucleated RBC % 0 11/11/21 13:40: Sodium 137, Potassium 3.4 L, Chloride 102, Carbon Dioxide 29.0, Anion Gap 6, BUN 13, Creatinine 1.18 H, Estim Creat Clear Calc 39.75, Est GFR (MDRD) Af Amer 58 L, Est GFR (MDRD) Non-Af 48 L, BUN/Creatinine Ratio 11.0, Glucose 178 H, Calcium 10.2 H, Troponin I High Sens 40 11/11/21 15:40: Troponin I High Sens 185 H* Radiology Impression Chest X-Ray 11/11/21 13:44 IMPRESSION: Nonacute portable x-ray examination of the chest. Electronically Signed: Silver Velazquez MD (Brooks) at 14:11 EDT , Assessment & Plan Assessment/Plan (1) Dyslipidemia: PLAN: 1. [id number]-kuxwynk will be admitted to PCU, she will be placed on a heparin drip, she will remain on a statin and aspirin 81 mg daily will be given. Patient will be seen in consultation by cardiology, a CTA of the chest is pending at the time of this dictation, I will not order an echocardiogram due to the fact the patient recently just had an echocardiogram performed. #2 coronary artery disease by history-patient had a stent placed in 2004, she currently is on a statin and 325 mg of aspirin daily. #3 essential hypertension-patient will remain on amlodipine #4 hyperlipidemia-patient will remain on a statin #5 elevated creatinine-etiology unclear, recheck labs
[2021-11-11 17:16] VITALS: BMI 26.9
--- NOTE | 2021-11-11 17:25 | CASEMGMT ---
RN MONE Assessment: RN CM to room to meet with patient for initial transition planning/care coordination assessment. RN CM introduced self and role at [facility]. Patient voices understanding and consents to assessment at this time. Patient's Bboo Joshi present at bedside and active in transition planning. Patient is alert and oriented and answers all questions appropriately. Care providers, pharmacy, and demographics verified/updated at this time. Admitting Dx: NSTEMI PCP: Tong Santana Specialists: Dr. Aly Rueda- assembly machine tender ([facility]), Glen- surgeon Preferred Pharmacy: [facility] Insurance: [facility] Prescription Benefit: yes Living Will/HPOA: Patient denies having a living will or HPOA. LNOK: Bobo Joshi and daughter Tammy Alvarado Living Arrangements: Patient lives with in two story house with 3 steps to enter the home (no handrail present). Patient states independent with ADLs prior to arrival. Patient ambulates independently, without the use of an assistive device. Smoking/ETOH: Former smoker (quit 50 years ago), denies ETOH use Transportation: Patient drives self and denies transportation concerns. DME/HHC/SNF: Patient denies having any DME in the home. Denies need for DME at this time. Denies previous HHC or SNF stays. Patient has no concerns with going home at time of discharge. CM to follow for any discharge planning/needs. Patient and voice no concerns/needs at this time. Advised patient and to ask for CM if any questions/concerns/needs arise. Voices understanding. Plan: home
[2021-11-11 18:33] VITALS: BP 157/69; PULSE 94; RESP 12; TEMP 36.7; O2SAT 96
[2021-11-11 19:05] VITALS: PULSE 98
--- NOTE | 2021-11-11 20:08 | EKG12_ITS ---
Test Reason : A.M. EKG Blood Pressure : / mmHG Vent. Rate : 081 BPM Atrial Rate : 081 BPM P-R Int : 194 ms QRS Dur : 086 ms QT Int : 426 ms P-R-T Axes : 067 -38 -78 degrees QTc Int : 494 ms Normal sinus rhythm Left axis deviation Inferior infarct , age undetermined T wave abnormality, consider anterolateral ischemia Abnormal ECG When compared with ECG of 12-NOV-2021 13:24, MANUAL COMPARISON REQUIRED, DATA IS UNCONFIRMED Confirmed by VICENTE LEES, MAYELA ([id number]), graphic editor LAURA GOOD ([id number]) on 11/16/2021 8:56:21 AM Referred By: MAURI Confirmed By:MAYELA ZHANG MD
--- NOTE | 2021-11-11 20:26 | EKG12_ITS ---
Test Reason : CP ADMIT Blood Pressure : / mmHG Vent. Rate : 092 BPM Atrial Rate : 092 BPM P-R Int : 184 ms QRS Dur : 088 ms QT Int : 356 ms P-R-T Axes : 057 -29 088 degrees QTc Int : 440 ms Normal sinus rhythm Inferior infarct , age undetermined T wave abnormality, consider anterior ischemia Abnormal ECG When compared with ECG of 11-NOV-2021 16:38, MANUAL COMPARISON REQUIRED, DATA IS UNCONFIRMED Confirmed by VICENTE LEES, MAYELA ([id number]), film editor supervisor LAURA GOOD ([id number]) on 11/17/2021 8:50:02 AM Referred By: DR DOTSON Confirmed By:MAYELA ZHANG MD
[2021-11-11 21:00] LABS: Partial Thromboplast Time 33.7 Seconds (24.1-36.2)
[2021-11-11 21:13] LABS: Troponin-I HS 1140 pg/mL (3.0-54.0)
[2021-11-11 21:17] LABS: International Normalized Ratio 1.1; Prothrombin Time (Protime)PT. 13.5 SECONDS (11.7-14.9)
[2021-11-11] MEDS: Atorvastatin Calcium 20 MG Tablet PO (21:23)
[2021-11-12] VITALS (17 sets, daily range): BP systolic 109–175; BP diastolic 70–114; PULSE 70–99; RESP 14–18; TEMP 36.4–37.1; O2SAT 94–99
[2021-11-12] MEDS: Labetalol (Prefilled) 20 MG/4 ML 10 MG IV (00:47)
[2021-11-12] MEDS: Ondansetron 4 MG/2 ML Vial IV (02:41)
[2021-11-12 04:00] LABS: Partial Thromboplast Time 53.5 Seconds (24.1-36.2)
[2021-11-12] MEDS: Heparin 10,000 UNITS/10 ML Vial 1000 UNITS IV (04:46)
--- NOTE | 2021-11-12 05:00 | EKG12_ITS ---
Test Reason : AM EKG Blood Pressure : / mmHG Vent. Rate : 086 BPM Atrial Rate : 086 BPM P-R Int : 196 ms QRS Dur : 088 ms QT Int : 416 ms P-R-T Axes : 058 -26 089 degrees QTc Int : 497 ms Normal sinus rhythm Inferior infarct , age undetermined T wave abnormality, consider anterolateral ischemia Abnormal ECG When compared with ECG of 11-NOV-2021 20:26, MANUAL COMPARISON REQUIRED, DATA IS UNCONFIRMED Confirmed by VICENTE LEES, MAYELA ([id number]), mapping editor LAURA GOOD ([id number]) on 11/16/2021 8:54:44 AM Referred By: DR DOTSON Confirmed By:MAYELA ZHANG MD
[2021-11-12] MEDS: amLODIPine 10 MG Tablet PO (08:03)
[2021-11-12] MEDS: Aspirin E.C. 81 MG Tablet PO (08:03)
[2021-11-12] MEDS: Potassium Chloride Oral Tablet 20 MEQ 40 MEQ PO (08:03)
--- NOTE | 2021-11-12 09:13 | CASEMGMT ---
According to the [employer] website, the following are in-network tertiary facilities: [facility], [place], [facility], [facility], [facility], and . Greg ROCHA CM
--- NOTE | 2021-11-12 10:41 | NURSING ---
This RN called and gave report to JOSEFINA Gipson at laboratory animal facility supervisor.
[2021-11-12] MEDS: 0.9% Normal Saline 1,000 ML 75 ML IV (13:43)
--- NOTE | 2021-11-12 13:45 | CRPHASE1_ITS ---
Patient Communication Former Patient:: Phase I PHII Cardiac Rehab Discussed with Patient:: Yes Guide to Cardiac Rehab Given to Patient:: Yes Cardiac Rehab Facility Choice List Given to Patient:: Yes Choice Program [facility] CR PHII:: Communication Given to CR Operating Room Technologist:: Jax Sandra Refer Phase II Cardiac Rehab:: Yes Sessions:: 36 sessions - 3 days/wk, 12 weeks Cardiac Rehabilitation Info Cardiac Rehabilitation Program Information: Cardiac Rehabilitation is important for patients like you who are recovering from a heart problem. Cardiac rehabilitation programs are recognized as integral to the continued care of the patient with coronary heart disease. The cardiac rehabilitation program is designed to optimize a patient's physical, psychological, and social functioning. Health primary care physician work in cardiac rehabilitation programs and assist you with getting the treatments you need to get stronger and healthier - like exercise, healthy eating habits, and medications. Cardiac rehabilitation has been show to help people with heart problems live longer and have better life enjoyment than people who do not go to cardiac rehabilitation. Please contact the Cardiac Rehabilitation Program at [facility] at in two weeks if you have not heard from them.
--- NOTE | 2021-11-12 13:45 | CRPH1.INSTRU ---
General Education CAD and cardiac anatomy and function:: Patient communicates acknowledgment, Family communicates acknowledgment Explanation of diagnoses and procedures:: Patient communicates acknowledgment, Family communicates acknowledgment Sign/Symptoms of CA:: Patient communicates acknowledgment, Family communicates acknowledgment Antiplatelet therapy: Patient communicates acknowledgment, Family communicates acknowledgment Proper use of NTG-SL: Patient communicates acknowledgment, Family communicates acknowledgment Emergency procedures and activation of EMS: Patient communicates acknowledgment, Family communicates acknowledgment Compliance of all prescribed medications: Patient communicates acknowledgment, Family communicates acknowledgment Smoking Patient Nicotine/Smoking Risk Factors Are:: Non-smoker Recommendations Include:: Previous smoker; encourage continued cessation Nicotine/Smoking Response Code:: Patient communicates acknowledgment, Family communicates acknowledgment Dyslipidemia Patient Dyslipidemia Risk Factors Are:: Total Cholesterol, Triglycerides, HDL, LDL Recommendations Include:: Lipid profile not available, Reviewed NCEP/ATP guidelines, Therapeutic Lifestyle Change dietary guidelines Dyslipidemia Response Code:: Patient communicates acknowledgment, Family communicates acknowledgment Overweight/Obesity Patient Overweight/Obesity Risk Factors Are:: BMI Normal [24-29 & > 65 years old] Recommendations Include:: Weight loss of 5-10%, Reduced calorie diet, Exercise 5-7 times/week Overweight/Obesity:: Patient communicates acknowledgment, Family communicates acknowledgment Hypertension Recommendations Include:: Maintain BP <130/85, Decrease/maintain normal body weight, Moderation of ETOH Hypertension:: Patient communicates acknowledgment, Family communicates acknowledgment Heart Disease Patient Heart Disease Risk Factors Are:: Previous cardiac event Recommendations Include:: Educated family members of their risk, Educated family members of importance of prevention of heart disease Heart Disease Response Code:: Patient communicates acknowledgment, Family communicates acknowledgment Diabetes Patient Diabetes Risk Factors Are:: No documented hx of diabetes Sedentary Recommendations Include:: Aerobic exercise 5-7 times/week for 20-30 minutes continuously, Benefits of regular exercise, Discussed home walking program, Monitored Outpatient Cardiac Rehab Sedentary Response Code:: Patient communicates acknowledgment, Family communicates acknowledgment
[2021-11-12 13:54] LABS: Hematocrit 46.2 % (37-47); Hemoglobin 15.4 g/dL (12.0-15.0); Mean Corp Hgb Conc 33.3 g/dL (32-36); Mean Corpuscular Hgb 31.8 pg (27.0-32.0); Mean Corpuscular Volume 95.3 fL (81-99); Mean Platelet Vol. 9.4 fl (6.2-12.0); Platelet Count 465 K/mm3 (150-450); RBC Distribution Width CV 13.8 % (11.6-14.6); RBC Distribution Width SD 48.2 fl (35.1-43.9); Red Blood Count 4.85 M/mm3 (4.2-5.4); White Blood Count 11.6 K/mm3 (4.4-11.0)
--- NOTE | 2021-11-12 13:56 | CON.PCM.CA_ITS ---
Assessment & Plan Assessment/Plan (1) Non-STEMI (non-ST elevated myocardial infarction): PLAN: Patient was evaluated and then underwent coronary angiography which revealed significant stenoses in the RCA, diagonal 1 and LAD. She underwent drug-eluting placement to the RCA and LAD with balloon angioplasty of the diago nal 1. We will keep the patient on aspirin, Brilinta, Coreg, statin. HPI Consult Data Date of Consult: 11/12/21 HPI Narrative HPI Narrative: SYBIL SUERO, is a 71 F who presents with chest pain. She ended up ruling in for a non-STEMI with a troponin of a little over 1100. CTA of her chest was negative for PE. Review of systems: All systems reviewed. All else is negative except that in HPI [facility] Medical History Carotid stenosis, bilateral Gastrointestinal complaints Heart disease High cholesterol Hypertension Vascular disease Vertigo Home Medications amlodipine 10 mg tablet 10 mg PO DAILY 09/12/18 [History Last Taken 11/11/21] simvastatin 40 mg tablet 40 mg PO QHS 09/12/18 [History Last Taken 11/10/21] aspirin 81 mg PO DAILY 07/31/20 [History Last Taken 11/10/21] cholecalciferol (vitamin D3) 50 mcg PO BID 11/11/21 [History Last Taken 11/11/21] fluticasone propionate 2 spray INTRANASAL DAILY PRN 11/11/21 [History Last Taken Unknown] Allergy/AdvReac Type Severity Reaction Status Date / Time hydrochlorothiazide Allergy Severe Blood Verified 11/11/21 13:39 Pressure Sporadic Family History Mother Cancer Brother Cancer Surgical History History of carotid endarterectomy (~07/2020) History of cholecystectomy History of coronary artery stent placement History of sinus surgery Social History Smoking Status: Former smoker alcohol intake: never substance use type: does not use what type of physical activity do you participate in: walking frequency: daily Physical Exam Const alert and oriented x3 Orientation / Consciousness: awake HEENT normocephalic Eyes no scleral icterus Neck supple Resp normal respiratory effort Cardio regular rate Skin no rashes or lesions noted Neuro oriented x3 Psych mental status grossly normal Risk Stratification Risk Stratification Applicable: No Charges/Coding Visit Charges Inpatient E&M: 15851 Init Hosp L2 Objective Data Vital Signs: Vital Signs Temp Pulse Resp BP Pulse Ox 97.8 F 85 18 136/80 H 97 11/12/21 13:45 11/12/21 13:45 11/12/21 13:45 11/12/21 13:45 11/12/21 13:45 Oxygen Delivery Method Room Air Weight: 167 lb 4 oz Body Mass Index (BMI) 26.9 Intake & Output: Intake and Output for Last 24 Hours 11/10/21 11/11/21 11/12/21 23:59 23:59 23:59 Intake Total 483.0 / 483.0 Output Total 300 / 300 Balance 183.0 / 183.0 Lab / Micro Data Result Diagrams: 11/12/21 13:45 11/11/21 13:40 Labs: Laboratory Results - last 24 hr 11/11/21 13:40: WBC 11.4 H, RBC 4.86, Hgb 15.6 H, Hct 46.2, MCV 95.1, MCH 32.1 H , MCHC 33.8, RDW Std Deviation 47.1 H, RDW Coeff of Rolanda 13.3, Plt Count 462 H, MPV 10.0, Immature Gran % (Auto) 0.400, Neut % (Auto) 40.1 L, Lymph % (Auto) 40.7, [place] % (Auto) 12.9 H, Eos % (Auto) 4.9, Baso % (Auto) 1.0, Absolute Neuts (auto) 4.6, Absolute Lymphs (auto) 4.62 H, Nucleated RBC % 0 11/11/21 13:40: Sodium 137, Potassium 3.4 L, Chloride 102, Carbon Dioxide 29.0, Anion Gap 6, BUN 13, Creatinine 1.18 H, Estim Creat Clear Calc 39.75, Est GFR (MDRD) Af Amer 58 L, Est GFR (MDRD) Non-Af 48 L, BUN/Creatinine Ratio 11.0, Glucose 178 H, Calcium 10.2 H, Troponin I High Sens 40 11/11/21 15:40: Troponin I High Sens 185 H* 11/11/21 20:13: PT 13.5, INR 1.1, APTT 33.7 03/17/22 20:13: Troponin I High Sens 1140 H* 11/12/21 03:40: APTT 53.5 H 11/12/21 13:45: WBC 11.6 H, RBC 4.85, Hgb 15.4 H, Hct 46.2, MCV 95.3, MCH 31.8, MCHC 33.3, RDW Std Deviation 48.2 H, RDW Coeff of Rolanda 13.8, Plt Count 465 H, MPV 9.4 Cardiology Labs/Tests 11/11/21 13:40: WBC 11.4 H, RBC 4.86, Hgb 15.6 H, Hct 46.2, MCV 95.1, MCH 32.1 H , MCHC 33.8, Plt Count 462 H, MPV 10.0, Immature Gran % (Auto) 0.400, Neut % (Auto) 40.1 L, Lymph % (Auto) 40.7, [place] % (Auto) 12.9 H, Eos % (Auto) 4.9, Baso % (Auto) 1.0, Absolute Neuts (auto) 4.6, Nucleated RBC % 0 11/11/21 13:40: Sodium 137, Potassium 3.4 L, Chloride 102, Carbon Dioxide 29.0, Anion Gap 6, BUN 13, Creatinine 1.18 H, Est GFR (MDRD) Af Amer 58 L, Est GFR (MDRD) Non-Af 48 L, BUN/Creatinine Ratio 11.0, Glucose 178 H, Calcium 10.2 H 11/11/21 20:13: PT 13.5, INR 1.1, APTT 33.7 11/12/21 03:40: APTT 53.5 H 11/12/21 13:45: WBC 11.6 H, RBC 4.85, Hgb 15.4 H, Hct 46.2, MCV 95.3, MCH 31.8, MCHC 33.3, Plt Count 465 H, MPV 9.4 Rhythm: EKG: ECHO: Stress Test: Cardiac Cath: PCI: CT Surgery: Holter monitor: EPS: PPM: CXR: Chest CT Scan: Radiography Diagnostic Testing: Radiology Impression Chest X-Ray 11/11/21 13:44 IMPRESSION: Nonacute portable x-ray examination of the chest. Electronically Signed: Silver Velazquez MD (Bro[place]) at 14:11 EDT , Chest CTA 11/11/21 16:51 IMPRESSION: ASHD. No acute cardiopulmonary pathology. No evidence for pulmonary embolus. Incidental finding of multiple tiny solid thyroid nodules which may be better assessed with thyroid sonogram if clinically warranted Electronically Signed: Flip Jacobs MD at 18:14 EDT ,
--- NOTE | 2021-11-12 14:48 | PCM.PN.HOSP ---
Documented by User: Bobo SANTOYO 11/12/21 14:53 Subjective Subjective Patient is a 71-year-old female comfortably resting in bed, alert and orient x3. Patient reports that her chest pain has improved from admission. Denies development of any new symptoms overnight. Does not appear in acute distress. Objective Data Objective Data Vital Signs: Vital Signs Temp Pulse Resp BP Pulse Ox 97.8 F 81 18 146/74 H 99 11/12/21 14:30 11/12/21 14:30 11/12/21 14:30 11/12/21 14:30 11/12/21 14:30 Oxygen Delivery Method Room Air Weight: 167 lb 4 oz Body Mass Index (BMI) 26.9 Intake & Output: Intake and Output for Last 24 Hours 11/10/21 11/11/21 11/12/21 23:59 23:59 23:59 Intake Total 488.04 / 488.04 Output Total 300 / 300 Balance 188.04 / 188.04 Lab / Micro Data Result Diagrams: 11/12/21 13:45 11/11/21 13:40 Labs: Laboratory Results - last 24 hr 11/11/21 15:40: Troponin I High Sens 185 H* 11/11/21 20:13: PT 13.5, INR 1.1, APTT 33.7 11/11/21 20:13: Troponin I High Sens 1140 H* 11/12/21 03:40: APTT 53.5 H 11/12/21 13:45: WBC 11.6 H, RBC 4.85, Hgb 15.4 H, Hct 46.2, MCV 95.3, MCH 31.8, MCHC 33.3, RDW Std Deviation 48.2 H, RDW Coeff of Rolanda 13.8, Plt Count 465 H, MPV 9.4 Radiography Diagnostic Testing: Radiology Impression Chest CTA 11/11/21 16:51 IMPRESSION: ASHD. No acute cardiopulmonary pathology. No evidence for pulmonary embolus. Incidental finding of multiple tiny solid thyroid nodules which may be better assessed with thyroid sonogram if clinically warranted Electronically Signed: Flip Jacobs MD at 18:14 EDT , Physical Exam Const alert, oriented x3 and no apparent distress HEENT head/scalp atraumatic and moist oral mucous membranes Head and Scalp: normocephalic Eyes PERRL and conjunctivae normal Neck no lymphadenopathy, supple and no JVD Resp normal respiratory effort, no retractions and no use of accessory muscles Cardio regular rate, regular rhythm and no JVD GI normal to inspection, nondistended, normoactive bowel sounds Extremity normal to inspection Skin no rashes or lesions noted Neuro CN's II-XII intact bilaterally Psych affect normal Assessment & Plan Assessment/Plan (1) Non-STEMI (non-ST elevated myocardial infarction): PLAN: Day 1 Discharge planning: Current plan is for patient to discharge home when medically ready. 1) NSTEMI Patient underwent cardiac catheterization which revealed significant stenosis in the RCA and LAD, for which patient underwent a drug-eluting stent with balloon angioplasty. Will initiate aspirin, Brilinta, Coreg and statin and observe overnight. 2) CAD status post stent Continue aspirin and statin. 3) HTN Continue amlodipine. 4) hyperlipidemia Continue statin. DVT prophylaxis - SCDs Patient seen by Bobo Taylor PA-C, under the supervision of Dr. Ervin. Time spent on patient care: 10 minutes. Documented by User: Dr. Georgi Ervin MD 11/12/21 16:05 Objective Data Lab / Micro Data Result Diagrams: 11/12/21 13:45 11/11/21 13:40 Charges/Coding Addendum Addendum: Dr. Ervin: I personally reviewed the chart and examined the patient, and agree with the above findings.71-year-old female presented to the emergency room with substernal chest pain. She was found to have an elevated troponin but EKG was nonischemic. Cardiology was consulted secondary to her non-STEMI and she was initially placed on medical management and then this morning she had her heart cath which demonstrated significant stenosis in the RCA in the diagonal 1 and LAD, she underwent GANGA placement to the RCA and LAD with balloon angioplasty of diagonal 1. We will continue with aspirin, Brilinta, Coreg, statin and doing well and plan on discharge in the morning. Clinical time spent in all aspects of patient care: 15 minutes Visit Charges Inpatient E&M: 92185 Subs Hosp L2
--- NOTE | 2021-11-12 14:52 | CASEMGMT ---
Pt to be sent home on Brilinta and provided month free trial card with instructions. Pt states no further needs at discharge. 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 Aleksandra, PCU charge, Dr. Ervin, Bobo SANTOYO, and Haven ROCHA all updated, voice understanding. Greg ROCHA CM
[2021-11-12] MEDS: Atorvastatin Calcium 20 MG Tablet PO (21:17)
[2021-11-12] MEDS: Carvedilol 3.125 MG TABLET PO (21:18)
[2021-11-12] MEDS: TICAGRELOR 90 MG TABLET PO (21:18)
[2021-11-13 03:15] VITALS: BP 134/77; PULSE 77; RESP 16; TEMP 36.2; O2SAT 96
[2021-11-13 04:04] VITALS: PULSE 97
[2021-11-13 05:28] LABS: Hematocrit 39.2 % (37-47); Hemoglobin 12.9 g/dL (12.0-15.0); Mean Corp Hgb Conc 32.9 g/dL (32-36); Mean Corpuscular Hgb 30.9 pg (27.0-32.0); Mean Platelet Vol. 9.6 fl (6.2-12.0); Platelet Count 397 K/mm3 (150-450); RBC Distribution Width CV 14.1 % (11.6-14.6); Red Blood Count 4.17 M/mm3 (4.2-5.4); White Blood Count 11.8 K/mm3 (4.4-11.0)
[2021-11-13 06:04] LABS: ALB/GLOB Ratio 1.1 RATIO (0.9-2.4); AST(SGOT) 16 U/L (15-37); Alanine Aminotransfer ALT/SGPT 23 U/L (13-56); Albumin, Serum 3.5 g/dL (3.2-5.0); Alkaline Phosphatase 98 U/L (45-117); Anion Gap 4 (5-15); BUN 14 mg/dL (7-18); BUN/Creat Ratio 14.3 RATIO (10-20); Calcium,Total 9.4 mg/dL (8.5-10.1); Chloride 108 mmol/L (98-107); Creatinine, Serum 0.98 mg/dL (0.55-1.02); EST Glomerular Filtration Rate 59 mL/min (>60); Est Glom Filt Rate - Afr Amer 72 mL/min (>60); Estimated Creatinine Clearance 47.86 ml/min; Globulin 3.3 g/dL (2.2-4.2); Glucose 101 mg/dL (74-106); Potassium 3.3 mmol/L (3.5-5.1); Protein, Total 6.8 g/dL (6.4-8.2); Sodium Level 140 mmol/L (136-145)
[2021-11-13 07:00] VITALS: PULSE 78
[2021-11-13 07:40] VITALS: O2SAT 92
[2021-11-13 08:38] VITALS: BP 140/78; PULSE 78; RESP 16; TEMP 36.9; O2SAT 94
[2021-11-13] MEDS: Aspirin E.C. 81 MG Tablet PO (08:40)
[2021-11-13] MEDS: amLODIPine 10 MG Tablet PO (08:40)
[2021-11-13] MEDS: TICAGRELOR 90 MG TABLET PO (08:40)
[2021-11-13] MEDS: Carvedilol 3.125 MG TABLET PO (08:40)
[2021-11-13 08:45] VITALS: O2SAT 94
[2021-11-13] MEDS: Potassium Chloride Oral Tablet 20 MEQ 40 MEQ PO (09:49)
--- NOTE | 2021-11-13 09:52 | PCM.DC ---
Discharge Instructions Diet Discharge Diet: No restrictions Activity Discharge Activity: Return to Normal Activity Weight Bearing Status: Weight bearing as tolerated Dressing / Incision Call your doctor if you observe: Fever of 101 or Higher, Numbness or Tingling, Shortness of breath, Dizziness, Chest pain, Increased palpitations (irregular heartbeat) and Calf discomfort Follow Up Care Please Follow Up With: Primary care provider When: Within the next two weeks. Test Results: Test results from this visit will be discussed in further detail at your follow-up appointment, if applicable. Discharge Plan Admission Admit Date/Time: 11/11/21 17:57 Primary Reason for Your Visit: Chest pain Attending Provider: Georgi Ervin Primary Care Provider: Tong Santana Consulting Providers: Jax Sandra Discharge Orders/Prescriptions Prescriptions: New carvedilol 3.125 mg Tablet 3.125 mg PO BID Qty: 60 RF: 0 Brilinta 90 mg Tablet 90 mg PO BID Qty: 60 RF: 0 Continued amlodipine 10 mg tablet 10 mg PO DAILY RF: 0 simvastatin 40 mg tablet 40 mg PO QHS RF: 0 aspirin 81 MG tablet,delayed release (DR/EC) 81 mg PO DAILY RF: 0 fluticasone propionate 50 mcg/actuation spray,suspension 2 spray INTRANASAL DAILY PRN (Reason: Sinus Symptoms) RF: 0 cholecalciferol (vitamin D3) 50 mcg (2,000 unit) Capsule 50 mcg PO BID RF: 0 Referrals / Follow Up: Tong Santana DO [Primary Care Provider] - Within 2 Weeks Aly Rueda MD [NON-STAFF] - See Referral Note (Follow up with your [employer] [employer] at your earliest possible convenience. ) Disposition Disposition (needs filled in before D/C Order can be placed): Home, Self Care
--- NOTE | 2021-11-13 10:00 | EKG12_ITS ---
Test Reason : Blood Pressure : / mmHG Vent. Rate : 088 BPM Atrial Rate : 088 BPM P-R Int : 194 ms QRS Dur : 086 ms QT Int : 384 ms P-R-T Axes : 061 -35 086 degrees QTc Int : 464 ms Normal sinus rhythm Left axis deviation ST & T wave abnormality, consider anterolateral ischemia Abnormal ECG When compared with ECG of 12-NOV-2021 05:59, MANUAL COMPARISON REQUIRED, DATA IS UNCONFIRMED Confirmed by VICENTE LEES, MAYELA ([id number]), general expeditor LAURA GOOD ([id number]) on 11/16/2021 8:56:54 AM Referred By: VICENTE Confirmed By:MAYELA ZHANG MD
--- NOTE | 2021-11-13 12:10 | PCM.DC.SUM ---
Documented by User: Bobo SANTOYO 11/13/21 12:14 Providers Date of Admission: 11/11/21 Date of Discharge: 11/13/21 Primary Care Physician: Dr. Tong Santana, Consultations 11/11/21 18:30 Consult: Cardiology Routine Consulting Provider: Jax Sandra Reason for Consult: NSTEMI EMERGENT Consult: No MD Notified: Yes Date Notified: 11/11/21 Time Notified: 17:59 Method of Notification: Verbal Reason For Visit: NSTEMI Diagnosis Discharge Diagnosis (1) Non-STEMI (non-ST elevated myocardial infarction): Status: Acute Code(s): I21.4 - Non-ST elevation (NSTEMI) myocardial infarction Medications at Discharge Home Medications amlodipine 10 mg tablet 10 mg PO DAILY 09/12/18 simvastatin 40 mg tablet 40 mg PO QHS 09/12/18 aspirin 81 mg PO DAILY 07/31/20 cholecalciferol (vitamin D3) 50 mcg PO BID 11/11/21 fluticasone propionate 2 spray INTRANASAL DAILY PRN 11/11/21 carvedilol 3.125 mg PO BID #60 tab 11/13/21 ticagrelor [Brilinta] 90 mg PO BID #60 tab 11/13/21 Hospital Course Procedures Cardiac catheterization Summary of Care Provided Minutes Spent on Discharge: 20 Hospital Course: Patient is a 71-year-old female who was admitted to [facility] on 11/12/2021 for evaluation and management of elevated troponins with chest pain. Patient underwent cardiac catheterization which revealed significant stenosis in the RCA and LAD, for which patient underwent drug-eluting stent to the RCA and LAD with balloon angioplasty. Recommendations from cardiology were to initiate Brilinta and Coreg and continue patient's home aspirin and statin regimen. Patient has established cardiovascular care with Dr. Rueda of [facility]. Patient was advised to establish follow-up appointment with [employer] as soon as possible. No other home medication changes were made and patient is also to follow-up with primary care provider within the next 2 weeks. Patient seen by Bobo Taylor PA-C, under the supervision of Dr. Ervin. Time spent on patient care: 20 minutes. Physical Exam Narrative Patient is a 71-year-old female comfortably resting in bed, alert and oriented x3. Patient reports that her chest pain and shortness of breath have resolved admission. Denies development of any new symptoms overnight. Does not appear in acute distress. Const alert, oriented x3 and no apparent distress HEENT normocephalic, head/scalp atraumatic and hearing grossly normal bilaterally Eyes PERRL and conjunctivae normal Neck no lymphadenopathy, supple and no JVD Resp normal respiratory effort, no retractions and no use of accessory muscles Cardio regular rate, regular rhythm and no JVD GI normal to inspection, nondistended, normoactive bowel sounds, soft to palpation and non-tender Extremity normal to inspection Skin no rashes or lesions noted Neuro CN's II-XII intact bilaterally Psych affect normal Weight / BMI Weight Weight: 167 lb 4 oz Body Mass Index (BMI) 26.9 ABG / Lab / Microbiology Data Result Diagrams: 11/13/21 05:02 11/13/21 05:02 Laboratory: Laboratory Results - last 24 hr 11/12/21 13:45: WBC 11.6 H, RBC 4.85, Hgb 15.4 H, Hct 46.2, MCV 95.3, MCH 31.8, MCHC 33.3, RDW Std Deviation 48.2 H, RDW Coeff of Rolanda 13.8, Plt Count 465 H, MPV 9.4 11/13/21 05:02: WBC 11.8 H, RBC 4.17 L, Hgb 12.9, Hct 39.2, MCV 94.0, MCH 30.9, MCHC 32.9, RDW Std Deviation 49.0 H, RDW Coeff of Rolanda 14.1, Plt Count 397, MPV 9.6 11/13/21 05:02: Sodium 140, Potassium 3.3 L, Chloride 108 H, Carbon Dioxide 28.0, Anion Gap 4 L, BUN 14, Creatinine 0.98, Estim Creat Clear Calc 47.86, Est GFR (MDRD) Af Amer 72, Est GFR (MDRD) Non-Af 59 L, BUN/Creatinine Ratio 14.3, Glucose 101, Calcium 9.4, Total Bilirubin 0.40, AST 16, ALT 23, Alkaline Phosphatase 98, Total Protein 6.8, Albumin 3.5, Globulin 3.3, Albumin/Globulin Ratio 1.1 D/C Instructions Discharge Diet: No restrictions Weight Bearing Status: Weight bearing as tolerated Call your doctor if you observe: Fever of 101 or Higher, Numbness or Tingling, Shortness of breath, Dizziness, Chest pain, Increased palpitations (irregular heartbeat) and Calf discomfort Please Follow Up With: Primary care provider When: Within the next two weeks. Meaningful Use Info Meaningful Use Diagnoses (Choose all that apply): None applicable Discharge Plan Admission Admit Date/Time: 11/11/21 17:57 Primary Reason for Your Visit: Chest pain Attending Provider: Georgi Ervin Primary Care Provider: Tong Santana Consulting Providers: Jax Sandra Discharge Orders/Prescriptions Prescriptions: New carvedilol 3.125 mg Tablet 3.125 mg PO BID Qty: 60 RF: 0 Brilinta 90 mg Tablet 90 mg PO BID Qty: 60 RF: 0 Continued amlodipine 10 mg tablet 10 mg PO DAILY RF: 0 simvastatin 40 mg tablet 40 mg PO QHS RF: 0 aspirin 81 MG tablet,delayed release (DR/EC) 81 mg PO DAILY RF: 0 fluticasone propionate 50 mcg/actuation spray,suspension 2 spray INTRANASAL DAILY PRN (Reason: Sinus Symptoms) RF: 0 cholecalciferol (vitamin D3) 50 mcg (2,000 unit) Capsule 50 mcg PO BID RF: 0 Referrals / Follow Up: Tong Santana DO [Primary Care Provider] - Within 2 Weeks Aly Rueda MD [NON-STAFF] - See Referral Note (Follow up with your [employer] at your earliest possible convenience. ) Disposition Disposition (needs filled in before D/C Order can be placed): Home, Self Care Documented by User: Dr. Georgi Ervin MD 11/13/21 13:07 Providers Date of Admission: 11/11/21 Reason For Visit: NSTEMI Medications at Discharge Home Medications amlodipine 10 mg tablet 10 mg PO DAILY 09/12/18 simvastatin 40 mg tablet 40 mg PO QHS 09/12/18 aspirin 81 mg PO DAILY 12/04/20 cholecalciferol (vitamin D3) 50 mcg PO BID 11/11/21 fluticasone propionate 2 spray INTRANASAL DAILY PRN 11/11/21 carvedilol 3.125 mg PO BID #60 tab 11/13/21 ticagrelor [Brilinta] 90 mg PO BID #60 tab 11/13/21 ABG / Lab / Microbiology Data Result Diagrams: 11/13/21 05:02 11/13/21 05:02 Discharge Plan Admission Admit Date/Time: 11/11/21 17:57 Primary Reason for Your Visit: Chest pain Attending Provider: Georgi Ervin Primary Care Provider: Tong Santana Consulting Providers: Jax Sandra Discharge Orders/Prescriptions Prescriptions: New carvedilol 3.125 mg Tablet 3.125 mg PO BID Qty: 60 RF: 0 Brilinta 90 mg Tablet 90 mg PO BID Qty: 60 RF: 0 Continued amlodipine 10 mg tablet 10 mg PO DAILY RF: 0 simvastatin 40 mg tablet 40 mg PO QHS RF: 0 aspirin 81 MG tablet,delayed release (DR/EC) 81 mg PO DAILY RF: 0 fluticasone propionate 50 mcg/actuation spray,suspension 2 spray INTRANASAL DAILY PRN (Reason: Sinus Symptoms) RF: 0 cholecalciferol (vitamin D3) 50 mcg (2,000 unit) Capsule 50 mcg PO BID RF: 0 Referrals / Follow Up: Tong Santana DO [Primary Care Provider] - Within 2 Weeks Aly Rueda MD [NON-STAFF] - See Referral Note (Follow up with your [employer] at your earliest possible convenience. ) Disposition Disposition (needs filled in before D/C Order can be placed): Home, Self Care Charges/Coding Addendum Addendum: Dr. Ervin: I personally reviewed the chart and examined the patient, and agree with the above findings.71-year-old female presented to the emergency room with substernal chest pain. She was found to have an elevated troponin but EKG was nonischemic. Cardiology was consulted secondary to her non-STEMI and she was initially placed on medical management and then this morning she had her heart cath which demonstrated significant stenosis in the RCA in the diagonal 1 and LAD, she underwent GANGA placement to the RCA and LAD with balloon angioplasty of diagonal 1. We will continue with aspirin, Brilinta, Coreg, statin and doing well and plan on discharge in the morning. Clinical time spent in all aspects of patient care: 15 minutes 11/13/2021: She is doing better today, denies any significant chest pain. She states that she does have a little bit of shortness of breath with activity. I discussed with her the possibility for discharge today she expressed understanding Erika is going home and would like to go home today. She does have her own [employer] who recommend following up with in 2 weeks. She will need to get refills on all of her medications and I did discuss with her that she is under no circumstance to discontinue the Brilinta, she needs to be on dual antiplatelet for at least a year. If the cost of Brilinta is too high than her [facility] [employer] can provide her with a prescription for Plavix. Clinical time spent in all aspects of patient care: 22 minutes Visit Charges Inpatient E&M: 42337 Disch Hosp
--- NOTE | 2021-11-22 11:36 | CL.I_ITS ---
Patient Name: SYBIL SUERO Study Date: 11/12/2021 Performing: Chica Sandra MD Ht: 66 inches 168 cm : 1950 Wt: 167.8 lbs 76 kg Age: 71 Gender: female BSA: 1.86 PROCEDURE(S) PERFORMED DC01-(26741)LHC/COR/LV IC12-([id number]/[id number])GANGA W/WO PTCA, SINGLE CORONARY ARTERY IC12-([id number]/[id number])GANGA W/WO PTCA, SINGLE CORONARY ARTERY IC02-(34461)PTCA, EACH ADD'L CORONARY ART, SAME MAJOR CLINICAL PROFILE AND CO-MORBIDITIES Indications: ACS <= 24 hrs Heart Failure: None Stress/Imaging Stress/Image Study Performed: No CAD Presentations: Non-STEMI. Symptom onset Date/Time: Time Not Available CONCLUSIONS CAD as described. Preserved LV systolic function. No significant aortic stenosis or mitral regurgit ation. Successful PCI of ostial and proximal RCA, mid LAD with drug-eluting stents. PTCA to diagona l 1 RECOMMENDATIONS DESCRIPTION OF PROCEDURE The patient arrived to the procedure lab. The risks and benefits of the procedure as well as a full d escription of our services here and lack of surgical backup were fully explained to the patient and/o r their significant other prior to the catheterization. The Timeout was completed, verifying the roseanna ect patient and procedure. The patient's procedural site was prepped and draped in the usual fashion. Local anesthetic was given subcutaneously to right radial region with Lidocaine 2%. Using a modified Seldinger technique, arterial access was obtained via the right radial artery, a 6Fr sheath was inse rted.. Left Coronary Artery selective angiography was performed in multiple views using a 5 Fr. JL3. 5 catheter. Left Ventriculography was performed in ARMSTRONG projection using a 5 Fr.. LV to AO pullback pr essures were then recorded. Right Coronary Artery selective angiography was then performed in multipl e views using a 5 Fr. JR 4 catheterThe images were reviewed and options discussed. A decision was then made to proceed with an Intervention, IVUS or other adjunct procedure. jr4 sh Guide catheter was inserted and engaged into the RCA. bmw Guide wire was advanced to the R CA. emerge 2.00 x 15 Balloon catheter was advanced across lesion in the right coronary, ostial. PTCA balloon inflated at 8 atms for 12 secs. PTCA balloon inflated at 12 atms for 17 secs. PTCA balloon in flated at 14 atms for 37 secs. Angiogram performed post balloon dilatation. Drug Eluting stent was re moved intact, failed to cross lesion nc emerge 2.25 x 20 Balloon catheter was advanced across lesion in the right coronary, ostial. PTCA balloon inflated at 18 atms for 20 secs. PTCA balloon inflated at 20 atms for 19 secs. PTCA balloon inflated at 20 atms for 28 secs. Angiogram performed post balloon dilatation. osiro 2.25 x 22 Drug Eluting stent was advanced across the lesion in the right coronary, ostial. Angiogram performed post stent deployment. bmw Guide wire was advanced to the LAD. runthrough Guide wire was advanced to the 1st Diagonal. xb3 Guide catheter was inserted and engaged into the LCA. emertge 2.00 x 12 Balloon catheter was advanced across lesion in the first diagonal, os tial. PTCA balloon inflated at 8 atms for 11 secs. PTCA balloon inflated at 8 atms for 20 secs. PTCA balloon inflated at 10 atms for 11 secs. PTCA balloon inflated at 12 atms for 14 secs. Angiogram perf ormed post balloon dilatation. emerge 2.0 x 12 Balloon catheter was repositioned to additional lesion in the LAD, mid on bmw wire PTCA balloon inflated at 12 atms for 10 secs. PTCA balloon inflated at 1 2 atms for 12 secs. PTCA balloon inflated at 12 atms for 7 secs. PTCA balloon inflated at 12 atms for 8 secs. Angiogram performed post balloon dilatation. osiro 2.25 x 22 Drug Eluting stent was advanced across the lesion in the LAD, mid. Angiogram performed post stent deployment. osiro 2.75 x 15 Drug E luting stent was advanced across the lesion in the LAD, mid. Angiogram performed post stent deploymen t. nc emerge 2.75 x 12 Balloon catheter was inserted post stent. Angiogram performed post balloon dilatation. The arterial sheath was pulled and a TR Band was applied for hemostasis CORONARY ANGIOGRAPHY DOMINANCE: Co- Dominant LEFT HEART ASSESSMENT Left Ventricular Ejection Fraction: by LV Gram 70 % LEFT MAIN: Mild luminal irregularities LEFT ANTERIOR DESCENDING ARTERY: MID LAD: 90 % Stenosis immediately proximal and distal to prrior stent which is widely patent. DIAGONAL 1: Ostial - 90 % Stenosis CIRCUMFLEX ARTERY: Mild luminal irregularities RIGHT CORONARY ARTERY: OSTIAL RCA: 80 % Stenosis PROX RCA: 80 % Stenosis VALVE FINDINGS: No Aortic Valve Stenosis No Mitral Insufficency INTERVENTION INFORMATION LESION SITE: RCA (Ostial) Lesion Complexity: High/C, chronic total occlusion: No, lesion at bifurcation: No, thrombus present: No, lesion length: 12 mm, culprit lesion: Yes, Previously treated lesion: No Pre Stenosis: 80 % Pre intervention MONICA flow: 3 PROCEDURE: Drug Eluting Stent with pre and post dilatation Post Stenosis: 0 % Post intervention MONICA flow: 3 Lesion Devices: Parker .014 BMW [place] Straight 190cm Pear Decktronic 6 Fr JR4.0 SH 100cm Guide Catheter Benny Sci [facility] MR 2.00x15 [facility] [place] [facility] GANGA 2.25x22 [employer] [place] [facility] MR 2.25x20 BALLOON [employer] [place] [facility] MR 2.25x20 BALLOON LESION SITE: LAD (Mid) Lesion Complexity: High/C, chronic total occlusion: No, lesion at bifurcation: Yes, thrombus present: No, lesion length: 12 mm, culprit lesion: Yes, Previously treated lesion: No Pre Stenosis: 90 % Pre intervention MONICA flow: 3 PROCEDURE: Drug Eluting Stent with pre and post dilatation The stenoses proximal and distal to prior stent were treated with GANGA Post Stenosis: 0 % Post intervention MONICA flow: 3 Lesion Devices: Jellynoteronik [facility] MR GANGA 2.25x22 Biotronik [facility] MR GANGA 2.75x15 [employer] [place] [facility] MR 2.75x12 BALLOON LESION SITE: 1st Diagonal (Ostial) Lesion Complexity: High/C, chronic total occlusion: No, lesion at bifurcation: Yes, thrombus present: No, lesion length: 8 mm, culprit lesion: Yes Pre Stenosis: 90 % Pre intervention MONICA flow: 3 PROCEDURE: Balloon Angioplasty The lesion was predilated prior to placing the LAD stent across the D1 to decrease the risk of vessel closure. 90 % Post intervention MONICA flow: 3 Lesion Devices: Terumo .014 Runthrough Extra Floppy 180cm straight Benny Sci [facility] MR 2.00x12 BALLOON COMPLICATIONS No Complications PROCEDURE MEDICATIONS Versed 1 mg IV Fentanyl 50 mcg IV Oxygen: 2 L/min via nasal cannula Brilinta 180 mg PO @ 11/12/2021 12:58:14 Heparin given IA 11/12/2021 11:11:51 Heparin 2000 unit(s) IV 11/12/2021 11:36:56 Verapamil 2.5mg, Ntg 100mcgs, 3000 units of Heparin given IA 11/12/2021 11:11:51 SUMMARY OF HEMODYNAMIC DATA Time AIR REST ECG 10:48:42 AO 110/59 (81) SA 11:14:53 LV 148/-12, 12 11:21:50 LV 147/-14, 12 11:21:57 LV 143/-4, 16 11:22:45 LVp 149/63, 66 11:23:03 AOp 150/60 (97) 11:23:08 Signed By Chica Sandra MD On 11/22/2021 11:35:28 AM Chica Sandra MD
== END 2021-11-13 11:48 | disposition home or self-care (01) | DRG 247 ==
LOC: ED 16:48 → PCU 19:27
PROVIDERS: Hospitalist; Specialist; Admitting Provider Internal Medicine; Emergency Provider Physician Assistant; PCP Family Medicine; Visit Provider Family Medicine
DX: I21.4 Non-ST elevation (NSTEMI) myocardial infarction (principal); E78.00 Pure hypercholesterolemia, unspecified; I25.10 Atherosclerotic heart disease of native coronary artery without angina pectoris; I10 Essential (primary) hypertension; I65.23 Occlusion and stenosis of bilateral carotid arteries; R94.4 Abnormal results of kidney function studies; Z95.5 Presence of coronary angioplasty implant and graft; Z79.82 Long term (current) use of aspirin; Z79.899 Other long term (current) drug therapy; Z87.891 Personal history of nicotine dependence
CPT/HCPCS: 36415; 71045; 71275; 80048; 80053; 84484; 85025; 85027; 85610; 85730; 92921; 92928; 93005; 93458; 99152; 99153; 99285; C1874; C1887; J7030; J7040; Q9967; A4216; C1725; C1769; C1894; C9600; J1327; J2405

== ENCOUNTER 2021-11-29 09:01 | Outpatient (CLI) | payer MEDICARE, SELFPAY ==
--- NOTE | 2021-11-29 09:05 | US_ITS ---
STUDY: THYROID ULTRASOUND REASON FOR EXAM: Female, 71 years old. Left thyroid nodule TECHNIQUE: Ultrasound evaluation of the thyroid was performed with real-time and static andrews-scale imaging. COMPARISON: None. FINDINGS: RIGHT LOBE: The right lobe of the thyroid gland measures 4.2 cm x 1.4 cm x 1.3 cm. There is a heterogeneous echotexture. There are 3 subcentimeter solid/cystic nodules in the upper mid and inferior aspects of the right lobe. The largest nodule measures 5 mm x 5 mm x 3 mm. This is in the mid pole LEFT LOBE: The left lobe of the thyroid gland measures 4.3 cm x 1.8 cm x 2.1 cm. There is a heterogeneous echotexture. There is a dominant complex nodule in the midpole of the left lobe measuring 2.6 cm x 1.7 cm x 1.8 cm. Intranodular vascularity is seen. Biopsy recommended. There is also evidence of a 1 cm x 0.9 cm x 0.5 cm hypoechoic solid nodule in the superior pole as well as a 1.1 cm x 1.3 cm x 0.9 cm heterogeneous nodule in the lower pole. ISTHMUS: The isthmus measures 2.6 mm. Incidental note is made of small bilateral benign-appearing cervical lymph nodes. US/Thyroid IMPRESSION: Dominant heterogeneous nodule in the midportion of the left lobe of the thyroid measuring 2.6 x 1.7 cm x 1.8 cm. Biopsy recommended. Electronically Signed: Mo Miller MD at 12:30 EDT ,
--- NOTE | 2021-11-29 09:05 | AAAS_ITS ---
Reason For Study: Aortic bruit Aorta Measurements Aorta Doppler Measurements Proximal aorta measures1.98 x 1.96cm. in cross- Peak systolic flow velocities within the proximal sectional axis. aorta measure 85.1 cm/sec. Proximal aorta measures1.95cm. in longitudinal Peak systolic flow velocities within the mid aorta axis. measure 97.4 cm/sec. Mid aorta measures2.03 x 2.02cm. in cross- Peak systolic flow velocities within the distal sectional axis. aorta measure 151.8 cm/sec. Mid aorta measures1.99cm. in longitudinal axis. Distal aorta measures1.73 x 1.74cm. in cross- sectional axis. Distal aorta measures1.71cm. in longitudinal axis. Left Iliac Artery Left iliac artery measures 1.65 x 0.69 cm. in the cross-sectional axis. Left iliac artery measures 0.70 cm. in the longitudinal axis. Peak systolic velocity in the left iliac artery measures 229.9 cm/sec. Right Iliac Artery Right iliac artery measures 1.34 x 1.36 cm. in the cross-sectional axis. Right iliac artery measures 1.42 cm. in the longitudinal axis. Peak systolic velocity in the right iliac artery measures 137.4 cm/sec. Procedure Aorta IVC Iliac vasculature or bypass grafts 88118. Exam performed in department. VL/AAA Screening Interpretation Summary Maximal aortic dimension in the mid abdominal aortic 2.03 x 2.02 cm in diameter which is normal Normal proximal and mid abdominal aortic aneurysm flow rates with increased dariusz ocity noted in the distal abdominal aorta and left greater than right common iliac. Left common iliac 1.65 x 0.69 cm in diameter which is ectatic. Right common iliac 1.34 x 1.36 cm in diameter which is ectatic Ordering Physician: Bismark Carroll Referring Physician: Raj Santana M.D. Performed By: Willinger, [place], RVT
== END 2021-11-29 23:59 | disposition home or self-care (01) ==
LOC: CVS 09:03
PROVIDERS: PCP Family Medicine; Referring Provider Surgery; Visit Provider Surgery
DX: R09.89 Other specified symptoms and signs involving the circulatory and respiratory systems (principal); E04.1 Nontoxic single thyroid nodule
CPT/HCPCS: 76536; 76706

== ENCOUNTER 2021-12-09 11:53 | Outpatient (CLI) | payer MEDICARE, SELFPAY ==
--- NOTE | 2021-12-09 11:58 | PCM.CR.HP2 ---
CR - History & Physical - General Arrival date:: 12/09/21 Arrival time:: 12:16 Date of Referral:: 11/12/21 Date of CR Evaluation:: 12/09/21 Referring Physician: Dr. Justino Sanabria Primary Diagnosis: PCI with coronary stenting - History of Present Cardiac Event Onset Date: Enter Onset Date of cardiac illnesses in Comment field below Current stable Angina Pectoris:: No Acute Myocardial Infarction within 12 months:: Yes - mild Coronary Artery Bypass Graft:: No Heart valve replacement or repair:: No PTCA or coronary stenting:: Yes - 11/12/2021 Heart or Heart-Lung Transplant:: No Heart Failure EF <35%:: No - EF 60% Type of Symptoms:: Severe chest pains. Interventions with present event:: heart cath after overnight stay Were there any complications?: high blood pressure, nausea - Sleep Disorder Evaluation Hx of Sleep Apnea: No Do you snore loudly (louder than talking or can be heard through closed doors)?: No Do you often feel tired/ fatigued/ sleepy during daytime?: Yes Has anyone observed you stop breathing during sleep?: No History of Hypertension (for STOP score): Yes STOP Results: Positive - Medications Home Medications: Ambulatory Orders Medication Instructions Recorded amlodipine 10 mg tablet 10 mg PO DAILY 09/12/18 simvastatin 40 mg tablet 40 mg PO QHS 09/12/18 RX: aspirin 81 mg PO DAILY 07/31/20 RX: cholecalciferol (vitamin D3) 50 mcg PO BID 11/11/21 RX: fluticasone propionate 2 spray INTRANASAL DAILY PRN 11/11/21 RX: carvedilol 3.125 mg PO BID #60 tab 11/13/21 ticagrelor [Brilinta] 90 mg PO BID #60 tab 11/13/21 - Allergies Allergies/Adverse Reactions: Allergies hydrochlorothiazide Allergy (Severe, Verified 11/18/21 09:29) Blood Pressure Sporadic Advanced Directives - Advanced Directives Power of Roof Promenade Tile Setter: No Living Will: No Advance Directives Information Provided: Yes Advance Directives on File: No DNR Order?:: No - MOLST See MOLST form: No Past Medical History - Covid-19 Screening Fever: No Unexplained muscle aches: No Current respiratory symptoms: No Upper respiratory infections symptoms: No Gastro-intestinal symptoms: No Nfj-Pmed-Lybziu symptoms: No Has tested positive for COVID-19 in last 30 days: No Date of testin12/09/21 - not vaccinated Had contact w/person w/symptoms or Covid-19 (+) last 14 days: No Has High Risk Exposures ID'd by Health dept/Inf Control team: No 65 years or older:: Yes Lives in Assisted Living facility:: No Has a serious heart condition:: Yes Immunocompromised:: No Severely obese (Body Mass Index of 40 or higher):: No Diabetic:: No Has chronic kidney disease undergoing dialysis:: No Has liver disease:: No - Past Medical Illness Medical History: Past Medical History (Last Reviewed 11/18/21 @ 09:28 by Sharlene Monday) Atherosclerotic heart disease of [place] coronary artery without angina pectoris I25.10 Carotid stenosis, bilateral I65.23 Cutaneous skin tags L91.8 four 1 mm skin tags frozen in the left axilla. Freeze x3 cycles Essential hypertension I10 Former smoker Z87.891 Gastrointestinal complaints R19.8 Hyperlipidemia E78.5 Seborrheic keratosis L82.1 15 keratosis were frozen, 8 on the back 3 on the chest and 3 on the axilla. Ranging in size from 1 cm to 4 mm. Freeze x 3 cycles. Vertigo R42 - Past Surgical History Surgical History: Past Surgical History (Last Reviewed 11/18/21 @ 09:28 by Sharlene Monday) History of carotid endarterectomy Onset Date: 07/2020 Z98.890 History of cholecystectomy Z90.49 2016 History of coronary artery stent placement Onset Date: 11/12/21 Z95.5 PCI-GANGA-LAD 03/2005; PCI-GANGA-RCA, GANGA-LAD, POBA D1 11/12/2021 History of sinus surgery Z98.890 Surgical History: surgery, stent 5 years ago at [facility] - Family History Summary Family History: Family History (Last Reviewed 11/18/21 @ 09:28 by Sharlene Monday) Mother Cancer Brother Cancer Social History - Smoking History Smoking Status: Former smoker Years Smokin Packs Smoked per Day: 1 Hx Smoking Cessation Date: 08/28/69 Hx Tobacco Use: No Hx Smoking Exposure: No - Alcohol Use Alcohol Usage: No - Substance Abuse Hx Substance Use: No - Occupation Occupation (List type of work in comments):: Retired - Hobbies, Recreation, Social Activities Hobbies: Reading, Walking Recreational Activities: I am able to engage in most, but not all activities - vertigo prn Social Environment - Status Marital Status: - Current Living Arrangements Living Environment:: Spouse - Children How many children do you have?: 2 Do any of your children live nearby?: Yes - Safety Do you feel safe in your surroundings?: Yes - Assistance Do you need any assistance at home?: no Review of Systems - Review of Systems Hints: Right click = Denies ([place]). Left click = Reports ([place]) Review of Present Symptoms: Reports: Shortness of Breath at Rest - occas, Dizziness/Lightheadedness - Aug 04 last time, Fatigue, Appetite - Normal, Appetite - Special Diet, Sleep - Normal, Sexual Changes - Pain Is Patient Pain Free?: Yes Pain Location: chest Pain Level: 3/10 - mopped floors this am, muscular Previous experience dealing with pain?: rest Risk Factor Assessment - Pulse Pulse Rate: 82 Pulse Rhythm: Regular - Hypertension How long have you been treated?: 2004 Blood Pressure Sitting - Right Arm: 140/84 - Blood Cholesterol/Lipids Total Cholesterol (mg/dL) Goal = less than 200 mg/dL: 172 HDL Cholesterol (mg/dL) Goal = less than 40 mg/dL: 66 LDL Cholesterol (mg/dL) Goal = less than 70 mg/dL: 88 Triglycerides (mg/dL) Goal = less than 150 mg/dL: 90 - Diabetes Nutrition Referral for Diabetes: No - Obesity Height: 5 ft 6 in Weight:: 163 lb Weight in Pounds: 163.0 lbs Weight Source: [facility] Body Mass Index (BMI): 26.3 Desired Body Weight: 150 Realistic Weight Goal (Loss of 1-2 lbs/week): 150 Nutritional Referral for Obesity: No - Physical Inactivity Physical Inactivity: Reg Exercise 30 min/day - Risk Stratification Risk Guidelines: Lowest Risk: Risk Factor for Smoking, Risk Factor for Diabetes, Risk Factor for Sedentary Lifestyle, Risk Factor for Depression, Moderate Risk: Risk Factor for Dyslipidemia, Risk Factor for Obesity, Risk Factor for Hypertension - Family History Family History: Family History (Last Reviewed 11/18/21 @ 09:28 by Monday) Mother Cancer Brother Cancer Motivation - Motivation to Participate On a scale of 1 to 10, how prepared are you to commit to attending program?: 8 What do you see as barriers to successfully being able to complete the program?: 1 What do you see as the benefits of succesfully completing the program? In other words, what do you hope to get out of participating in the program?: better health Are there issues you are dealing with that will interfere with completing the program?: may have surgery, needle bx of thyroid for Tiffanie 12/16 Do you have a spouse or signficant other, family or friends who will help support you to complete the program?: yes
[2021-12-09 12:51] VITALS: BP 140/84; PULSE 82; BMI 26.3
--- NOTE | 2021-12-09 13:13 | PCM.CR.ITP ---
Diagnosis - General Information Admitting Diagnosis: PCI W/CORONARY STENT Secondary Diagnosis: HLD, HTN, ASHD Personal Learning Style:: Audio/Visual, Written Barriers to Learning: Vision Impairment Stage of change r/t lifestyle modifications:: Action Gave educational material for:: Treating Heart Disease, Emotions & Heart Disease, Stress Management & Relaxation, Sleep Disorders & Heart Disease, How The Heart Works, What it means to have Heart Disease, How Coronary Artery Disease is Diagnosed, Heart Procedures, What Heart Medications Do, Risk Factors & Modifications, Living an Active Life, Nutrition - Education/Goals Individual Counseling: Initial Assessment: Abnormal Cholesterol Levels, High Blood Pressure Cardiac Rehabilitation Goals: 1. Maintain the individual as the primary focus of care. 2. To improve the patient's quality of life. 3. Identification of cardiac risk factors and provide cardiac risk factor management. 4. Enhance the psychosocial status of the patient. 5. Reconditioning enough to allow the patient to resume customary activities. 6. Control symptoms of cardiac disease Personal Goals: Initial Assessment: Improve management of stress and emotions, Improve energy level, Participate in home exercise program, Improve muscle strength and endurance, Improve diet and eating habits (eat healthier), Control risk factors (learn risk factor modification) Scale for measuring improvement of personal goals: Enter appropriate number in Comments. 2 = Unchanged. 3 = Slightly Better. 4 = Moderate Improvement. 5 = Met my Goal - Diagnosis & Disease Process Outcomes/Goals: Pt IDs own risk factors & lifestyle modifications by Session 10, Verbalizes symptoms of angina & response by session 3., Pt independently manages Plan/Interventions: Assist Pt to ID & engage in lifestyle modification to reduce CVD risk, Instruct on individual risk factors, Review symptoms of angina & emergency actions, Review secondary diagnosis & identify educational needs. - Safety Referral to Physical Therapy: No Referral to [facility] Case Management: No Fall Risk Assessed:: Yes Assistive Devices:: None Exercise - Initial Assessment - Visit Date of Eval: 12/09/21 Session #:: 0 - PRE-CARDIAC REHAB EVALUATION Mets: Pre-: >7 METS for 30 minutes by discharge - Physician Prescribed Exercise Modalities: Treadmill, Airdyne, NuStep Frequency: 3x/week for 12 weeks [36 sessions] Intensity: 60-80% of age predicted maximum heart rate reserve Current METSs:: 3.0 Target Heart Rate:: 96-124 EKG Type: SINUS RHYTHM - Outcomes & Goals Goals:: Verbalizes understanding of THR, RPE & goal METS by session 6, Documents in home exercise log/reports 30 min aerobic 5 day/wk by DC, Demonstrates accurate pulse taking by DC - Intervention & Plan Exercise Program Goals: Instruct on personal THR & RPE, Instruct on MET level & personal MET goal, Instruct on home exercise - Physical Activity Home Exercise Physical Activity - Home Exercise: Safe Exercise, Warm-up, Self-monitoring, Cool-Down, Home Exercise > 30 min Daily, Sitting Time <3 hours/daily - Outcomes & Goals Outcomes/Goals: Demonstrates correct Warm-up/exercise Cool-Down (S3) if = 2.5 METs, Verbalizes symptoms of exercise intolerance by Session 3 (S3), Demonstrate safe equipment use (S3) & follows exercise prescrition (6) - Intervention & Plan Plan/Intervention: Instruct warm-up & cool-down if exercising at > 2 METs, Instruct on symptoms of exercise intolerance & actions to take, Instruct & monitor on saf, Assess intial functional capacity & safety risk Nutrition - Initial Assessment - Program Goals Nutrition Program Goals: LDL <100 optimal. 100 - 129 Near optimal. 130 - 159 Borderline High. 160 - 189 High. Total Cholesterol <200 desirable. 200 - 239 Borderline High. >/= 240 High. HDL < 40 Low >/=60 High. Triglycerides <150 desirable. <199 optimal. VlDL 5 - 40. HgbA1C <7%. BMI <25 Patient has diagnosis of Hyperlipidemia (ICD E78)?: Yes - Visit Date of Assessment:: 12/09/21 Session #:: 0 - PRE-CARDIAC REHAB EVALUATION - Cholesterol/Lipids Determine presence & major risk factors that modify LDL goal: Hypertension or hypertensive medication, Family history of premature CHD in Male < 55 years: female <65 yearsFa, Age men > 45 years; women >/= 55 years Outcomes/Goals: Pt IDs own risk factors & lifestyle modifications by Session 10, Verbalizes symptoms of angina & response by session 3., Pt independently manages Intervention/Plan: Instruct on personal lipid levels & lipid goals/NCEP guidelines, Instruct on cholesterol Referral to dietitian:: Yes - MEDICAL NUTRITION THERAPY - Diabetes (Other Core Measures) Diabetes Type: Not Applicable - Weight Mgt (Other Care) Not Applicable: Yes Height: 5 ft 5.5 in Weight:: 164 lb BMI: 26.9 Diagnosis Overweight/Obesity BMI> 30% ICD-10 E66: No Diagnosis High BMI/Morbid Obesity BMI> 35% ICD-10 Z68: No Outcomes/Goals: Pt sets, maintains & shows weight loss goal & trend during rehab Intervention/Plan: Instruct on ideal BMI & set weight loss goal w/patient - Healthy Eating Habits Will attend diet classes:: Yes Outcomes/Goals:: Consume diet rich in vegs,fruits,whole grain/high fiber,fish,lean meat, Limit sat/trans fats,cholesterol & added salts & sugars Intervention/Plan:: Assess current eating habits - Education Gave educational materials for:: Healthy eating Nutrition - 30-Day Assessment Nutrition - 60-Day Assessment Nutrition - 90-Day Assessment Nutrition - Final Assessment Medical - Initial Assessment - Visit Date of Eval: 12/09/21 Session #:: 0 - PRE-CARDIAC REHAB EVALUATION - Medication Compliance Preventative Medication(s):: Aspirin, Ticagrelor/P2Y12 inhibitor, Statin/lipid H/O mental health issues: depression, anxiety, or addiction?: No Doesn?t believe in the benefits of treatment?: No Believes medications are unnecessary or harmful?: No Has a concern about medication side effects?: No Expresses concern over the cost of medications?: No Outcomes/Goals: Verbalizes medications,desired effect & common side effects @ DC, Pt self-reports following medication regimen, Keeps card in wallet w/medications listed by DC Interventions/plans: Instruct on medication effects & side effects, Review medication list w/patient every two weeks, Instruct importance of taking meds as ordered & assist problem solving - Tobacco Use Tobacco Use: Non-smoker - Hypertension Hypertension Diagnosis:: Hypertension ICD-10 I10 [place] [employer] Hypertension Guidelines: [place] [employer] Hypertension Guidelines. Normal BP Less than 120/80. Elevated BP 120/80. Hypertension Stage 1: BP 130-139/80-89. Hypertesnion Stage 2: BP 140 or higher/90 or higher. Hypertension Crisis: BP higher than 180/120 Outcomes/Goals: Able to verbalize/achieve optimal blood pressure <130/80, Incorporates diet changes & exercise for blood pressure control by DC Interventions/plan: Instruct on optimal blood pressure, hypertension & medications, Instruct on effects of sodium, alcohol, stress, exercise &hypertension - Tobacco Cessation Referral Smoking Cessation Referral:: No Individual Education/Counseling:: No Education Schedule Given:: Yes Medical- 30-Day Assessment Medical- 60-Day Assessment Medical- 90-Day Assessment Medical - Final Assessment Psychosocial - Initial Assess - VIsit Date of Eval: 12/09/21 Session #:: 0 - PER-CARDIAC REHAB EVALUATION Not Applicable: Yes - Psychosocial Test Tool Used:: Luiz Mejia QOL Cardiac, PHQ-9 Questionnaire phq-9 Severity: Severity. 1-4 Minimal Depression. 5-9 Mild Depression. 10-14 Moderate Depression. 15-19 Moderately Sever Depression. 20-27 Severe Depression. Rule: - Referral to Behavioral Health PS - Interventions: Yes Attend Stress Management Classes, No Referral to Behavioral Health if PHQ-9 score >9:, No Referral to [facility] Community [facility], No Referral to Physician if PHQ-9 if score is 5-9: - Outcomes/Goals: See list Psychosocial Outcomes/Goals:: ID's personal stressors & 2 strategies to manage stress by discharge - Intervention/Plan: See List Interventions/Plan:: Assess stressors,coping strategies & signs of derpression on admission, Instruct/assist pt to develop coping & personal stress Mgt strategies, Instruct patient to recognize signs & symptoms of depression, Instruct patient to recog Psychosocial - 30-Day Assess Psychosocial - 60-Day Assess Psychosocial - 90-Day Assess Psychosocial - Final Assessmen Patient Health Questionnaire Initial Assessment 1. Little interest or pleasure in doing things: Not at all 2. Feeling down, depressed, or hopeless: Several days 3. Trouble falling or staying asleep, or sleeping too much: Several days 4. Feeling tired or having little energy: Several days 5. Poor appetite or overeating: Not at all 6. Feeling bad about yourself -- or that you are a failure or have let yourself or your family down: Not at all 7. Trouble concentrating on things, such as reading the newspaper or watching television: Not at all 8. Moving or speaking so slowly that other people could have noticed. Or the opposite - being so fidgety or restless that you have been moving around a lot more than usual: Not at all 9. Thoughts that you would be better off , or of hurting yourself in some way: Not at all Total Score: 3 FREDRICK-Q SV Test - Statements CAD is a disease of the arteries in the heart: False Examples of risk factors for heart disease: True Angina is chest pain or discomfort: True The benefits of resistance training include: True Eating more meat and dairy products: False The only effective way to manage stress: False An exercise warm-up slowly increases heart rate: I Don't Know Prepared, processed foods usually have high sodium: True Depression is common after a heart attack: True The statin medications lower cholesterol: True To control blood pressure, lower the amount of sodium: True If someone gets chest discomfort during walking: I Don't Know Transfats are partially hydrogenated vegetable oils: True Sleep apnea that is not treated increases the risk: True To control cholesterol, one should become a vegetarian: False Someone knows if he/she is exercising at the right level: True Diabetes cannot be prevented with exercise & health eating: I Don't Know Stress is a large risk for heart attack: True A diet that can help lower blood pressure is rich in: True Self-Efficacy Initial Assessment We would like to know how confident you are in doing certain activities. Please select your confidence level for:: Select your confidence level for the following using the scale 1-10 where 1 is not at all confident and 10 is totally confident. Your score is the average of all 6 responses. Fatigue: How confident are you that you can keep the fatigue caused by your disease from interfering with the things you want to do? Select Number: 8 Physical Discomfort or Pain: How confident are you that you can keep the physical discomfort or pain of your disease from interfering with the things you want to do? Select Number: 8 Emotional Distress: How confident are you that you can keep the emotional distress caused by your disease from interfering with the things you want to do? Select Number: 10 Other Symptoms or Health Problems: How confident are you that you can keep other symptoms or health problems from interfering with the things you want to do? Select Number: 8 Different Tasks and Activities: How confident are you that you can do the different tasks and activities needed to manage your health condition so as to reduce your need to see a doctor? Select Number: 7 Medication: How confident are you that you can do things other than just taking medication to reduce how much your illness affects your everyday life? Select Number: 8 Total Score:: 8 Nutrition Survey - Nutrition Survey Initial Have you lost >10 lbs over the past 2 months without trying?: No Are you following a special diet at home for diabetes, low fat, or low salt?: No Do you eat less than 3 meals a day?: No Do you eat fatty meats (sahu, sausage, ribs, etc), fried foods, desserts, large amounts of salad dressings, margarine, butter, or cheese most days?: No Do you eat in restaurants more than 3 times a week?: No Do you season food with salt, seasoning salt, or garlic salt?: Yes Do you used canned, boxed, frozen meals, or soups, seasoning packets?: No
[2021-12-09 13:31] VITALS: BMI 26.9
== END 2021-12-09 23:59 | disposition home or self-care (01) ==
LOC: CR 11:56
PROVIDERS: PCP Family Medicine; Referring Provider Internal Medicine Cardiovascular Disease; Visit Provider Internal Medicine Cardiovascular Disease
DX: I10 Essential (primary) hypertension (principal); I25.10 Atherosclerotic heart disease of native coronary artery without angina pectoris; J98.4 Other disorders of lung; Z95.5 Presence of coronary angioplasty implant and graft

== ENCOUNTER → 2021-12-14 | Outpatient (CLI) | payer MEDICARE, SELFPAY ==
[2021-12-09 13:31] VITALS: BMI 26.9
[2021-12-14 16:59] LABS: Thyroid Stim Hormone (TSH) 1.11 uIU/mL (0.358-3.74)
== END | disposition home or self-care (01) ==
LOC: BIMLAB 15:22
PROVIDERS: PCP Family Medicine; Referring Provider Family Medicine; Visit Provider Family Medicine
DX: I10 Essential (primary) hypertension (principal)
CPT/HCPCS: 36415; 84443

== ENCOUNTER → 2021-12-16 | Outpatient (CLI) | payer MEDICARE, SELFPAY ==
[2021-12-09 13:31] VITALS: BMI 26.9
--- NOTE | 2021-12-16 | ASPS_PTH ---
PATIENT: SYBIL SUERO LOC: [facility] U#:[id number] AGE/SX: 71/F ROOM: RE12/16/[address]: Dr. Bismark Carroll MD : [id number] BED: DIS: 12/16/2021 SPEC #: [id number] RECD: 12/17/21 10:51 STATUS: DANI REGenny #: [id number] ELENA: 12/16/21 00:[address]: Bismark Carroll DEPT: CYTOLOGY RECD BY: Cristo Gordon ENTERED: 12/17/21 10:52 SP TYPE: ASPIRATION OTHR DR: Dr. Tong Santana, DO Tissues: Thyroid gland, NOS Procedures: Special Stain Group II Cytology Other HEADER OPERATION: Left thyroid fine needle aspiration PRE-OP DIAGNOSIS: Left thyroid nodule TISSUE SUBMITTED: Left thyroid nodule x10 slides DIAGNOSIS CYTOLOGY Left thyroid nodule, fine needle aspiration (smears): Consistent with benign follicular nodule ([place] category II). Adequate for evaluation. See comment. ALICIA:sunny 12/20/2021 COMMENT Correlation with clinical, radiologic findings and appropriate follow up are necessary. CYTOLOGY STUDY Slides are reviewed. CYTOLOGY GROSS Received are ten smears labeled with the patient's name and designated per the requisition as left thyroid nodule. Submitted for staining. / sunny 12/17/2021 TC:5 CPT: 68382
== END | disposition home or self-care (01) ==
LOC: LABSPEC 15:45
PROVIDERS: PCP Family Medicine; Referring Provider Surgery; Visit Provider Surgery
DX: E04.1 Nontoxic single thyroid nodule (principal)
CPT/HCPCS: 88161; 88313

== ENCOUNTER 2021-12-24 15:45 | Outpatient (RCR) | payer MEDICARE, SELFPAY | END 2021-12-25 23:59 | LOC: CR 15:45 | PROVIDERS: PCP Family Medicine; Referring Provider Internal Medicine Cardiovascular Disease; Visit Provider Internal Medicine Cardiovascular Disease | DX: I21.4 Non-ST elevation (NSTEMI) myocardial infarction (principal) | CPT/HCPCS: 93798 ==

== ENCOUNTER 2022-01-21 15:45 | Outpatient (RCR) | payer MEDICARE, SELFPAY ==
--- NOTE | 2022-01-05 07:29 | CR.ITP_ITS ---
Diagnosis Exercise - 30-day Assessment - Visit Date of Eval: 01/05/22 Session #:: 10 - Physician Prescribed Exercise Modalities: Treadmill, NuStep Frequency: 3x/week for 12 weeks [36 sessions] Intensity: 60-80% of age predicted maximum heart rate reserve Current METSs:: 4.5 Target Heart Rate:: 96-125 Current RPE:: 11-15 Maximum Excercise HR:: 109 Resting Blood Pressure: 158/78 - elevated resting BPs Maximum Exercise Blood Pressure: 164/68 EKG Type: NSR to sinus tach with occasional PAC rare PVC Current Physical Activity or Exercising minutes: 37 - Outcomes & Goals Goals:: Verbalizes understanding of THR, RPE & goal METS by session 6, Documents in home exercise log/reports 30 min aerobic 5 day/wk by DC, Demonstrates accurate pulse taking by DC - Intervention & Plan Exercise Program Goals: Instruct on personal THR & RPE, Instruct on MET level & personal MET goal, Show patient to take own pulse /validate performance until accurate, Instruct on home exercise - 30-day Reassessments 30 day Reassessments:: Progressing - Physical Activity Home Exercise Physical Activity - Home Exercise: Safe Exercise, Warm-up, Self-monitoring, Cool-Down, Home Exercise > 30 min Daily, Sitting Time <3 hours/daily - Outcomes & Goals Outcomes/Goals: Demonstrates correct Warm-up/exercise Cool-Down (S3) if = 2.5 METs, Verbalizes symptoms of exercise intolerance by Session 3 (S3), Demonstrate safe equipment use (S3) & follows exercise prescrition (6) - Intervention & Plan Plan/Intervention: Instruct warm-up & cool-down if exercising at > 2 METs, Instr uct on symptoms of exercise intolerance & actions to take, Instruct & monitor on saf, Assess intial functional capacity & safety risk - 30-day Reassessments 30 day Reassessments:: Progressing Nutrition - Initial Assessment Nutrition - 30-Day Assessment - Program Goals Nutrition Program Goals: LDL <100 optimal. 100 - 129 Near optimal. 130 - 159 Borderline High. 160 - 189 High. Total Cholesterol <200 desirable. 200 - 239 Borderline High. >/= 240 High. HDL < 40 Low >/=60 High. Triglycerides <150 desirable. <199 optimal. VlDL 5 - 40. HgbA1C <7%. BMI <25 Patient has diagnosis of Hyperlipidemia (ICD E78)?: Yes - Visit Date of Assessment:: 01/05/22 Session #:: 10 - Cholesterol/Lipids Triglycerides (mg/dL): 90 Total Cholesterol (mg/dL): 172 LDL Cholesterol (mg/dL): 88 HDL Cholesterol (mg/dL): 66 Determine presence & major risk factors that modify LDL goal: Hypertension or hypertensive medication, Age men > 45 years; women >/= 55 years Outcomes/Goals: Pt IDs own risk factors & lifestyle modifications by Session 10, Verbalizes symptoms of angina & response by session 3., Pt independently manages Intervention/Plan: Instruct on personal lipid levels & lipid goals/NCEP g uidelines, Instruct on cholesterol Referral to dietitian:: Yes - Medical Nutrition Therapy 30-day Reassessments:: Progressing - Diabetes (Other Core Measures) Diabetes Type: Not Applicable - Weight Mgt (Other Care) Not Applicable: Yes Height: 5 ft 5 in Weight:: 168 lb BMI: 27.9 Diagnosis Overweight/Obesity BMI> 30% ICD-10 E66: No Diagnosis High BMI/Morbid Obesity BMI> 35% ICD-10 Z68: No Outcomes/Goals: Pt sets, maintains & shows weight loss goal & trend during rehab Intervention/Plan: Instruct on ideal BMI & set weight loss goal w/patient, Assist pt to ID & incorporate diet changes for weight loss by S9 30 day Reassessments:: Progressing - Healthy Eating Habits Will attend diet classes:: Yes Outcomes/Goals:: Consume diet rich in vegs,fruits,whole grain/high fiber,fish,lean meat 30-day Reassessments:: Progressing - Education Gave educational materials for:: Healthy eating Nutrition - 60-Day Assessment Nutrition - 90-Day Assessment Nutrition - Final Assessment Medical - Initial Assessment Medical- 30-Day Assessment - Visit Date of Eval: 01/05/22 Session #:: 10 - Medication Compliance Preventative Medication(s):: Aspirin, Ticagrelor/P2Y12 inhibitor, Statin/lipid, Beta nneka H/O mental health issues: depression, anxiety, or addiction?: No Doesn?t believe in the benefits of treatment?: No Believes medications are unnecessary or harmful?: No Has a concern about medication side effects?: No Expresses concern over the cost of medications?: No Outcomes/Goals: Verbalizes medications,desired effect & common side effects @ DC, Pt self-reports following medication regimen, Keeps card in wallet w/medications listed by DC Interventions/plans: Instruct on medication effects & side effects, Review medication list w/patient every two weeks, Instruct importance of taking meds as ordered & assist problem solving 30-day Reassessments:: Progressing - Tobacco Use Tobacco Use: Non-smoker - Hypertension Resting Blood Pressure:: 158/78 [place] [employer] Hypertension Guidelines: [place] [employer] Hypertension Guidelines. Normal BP Less than 120/80. Elevated BP 120/80. Hypertension Stage 1: BP 130-139/80-89. Hypertesnion Stage 2: BP 140 or higher/90 or higher. Hypertension Crisis: BP higher than 180/120 Peak Exercise Blood Pressure:: 164/68 Outcomes/Goals: Able to verbalize/achieve optimal blood pressure <130/80, I ncorporates diet changes & exercise for blood pressure control by DC Interventions/plan: Instruct on optimal blood pressure, hypertension & medications, Instruct on effects of sodium, alcohol, stress, exercise &hypertension 30 day Reassessments:: Not Met - Tobacco Cessation Referral Smoking Cessation Referral:: No Individual Education/Counseling:: No Education Schedule Given:: Yes Medical- 60-Day Assessment Medical- 90-Day Assessment Medical - Final Assessment Psychosocial - Initial Assess Psychosocial - 30-Day Assess - VIsit Date of Eval: 01/05/22 Session #:: 10 Not Applicable: Yes History of previous Mental disease:: No - Psychosocial Test Tool Used:: PHQ-9 Questionnaire phq-9 Severity: Severity. 1-4 Minimal Depression. 5-9 Mild Depression. 10-14 Moderate Depression. 15-19 Moderately Sever Depression. 20-27 Severe Depression. Rule: - Referral to Behavioral Health PS - Interventions: Yes Attend Stress Management Classes, No Referral to Behavioral Health if PHQ-9 score >9:, No Referral to [facility], No Referral to Physician if PHQ-9 if score is 5-9: - Outcomes/Goals: See list Psychosocial Outcomes/Goals:: ID's personal stressors & 2 strategies to manage stress by discharge - Intervention/Plan: See List Interventions/Plan:: Assess stressors,coping strategies & signs of derpression on admission, Instruct/assist pt to develop coping & personal stress Mgt strategies, Instruct patient to recognize signs & symptoms of depression, Instruct patient to recog - 30-day Reassessments: 30 day Reassessments:: Met Psychosocial - 60-Day Assess Psychosocial - 90-Day Assess Psychosocial - Final Assessmen Patient Health Questionnaire 30-Day Re-eval Assessment 1. Little interest or pleasure in doing things: Not at all 2. Feeling down, depressed, or hopeless: Not at all 3. Trouble falling or staying asleep, or sleeping too much: Several days 4. Feeling tired or having little energy: Not at all 5. Poor appetite or overeating: Not at all 6. Feeling bad about yourself -- or that you are a failure or have let yourself or your family down: Not at all 7. Trouble concentrating on things, such as reading the newspaper or watching television: Not at all 8. Moving or speaking so slowly that other people could have noticed. Or the opposite - being so fidgety or restless that you have been moving around a lot more than usual: Not at all 9. Thoughts that you would be better off , or of hurting yourself in some way: Not at all How difficult have these problems made it for you to do your work, take care of things at home, or get along with other people?: Not difficult at all Total Score: 1 Self-Efficacy 30-Day Re-eval Assessment We would like to know how confident you are in doing certain activities. Please select your confidence level for:: Select your confidence level for the following using the scale 1-10 where 1 is not at all confident and 10 is totally confident. Your score is the average of all 6 responses. Fatigue: How confident are you that you can keep the fatigue caused by your disease from interfering with the things you want to do? Select Number: 8 Physical Discomfort or Pain: How confident are you that you can keep the physical discomfort or pain of your disease from interfering with the things you want to do? Select Number: 8 Emotional Distress: How confident are you that you can keep the emotional distress caused by your disease from interfering with the things you want to do? Select Number: 10 Other Symptoms or Health Problems: How confident are you that you can keep other symptoms or health problems from interfering with the things you want to do? Select Number: 8 Different Tasks and Activities: How confident are you that you can do the different tasks and activities needed to manage your health condition so as to reduce your need to see a doctor? Select Number: 8 Medication: How confident are you that you can do things other than just taking medication to reduce how much your illness affects your everyday life? Select Number: 8 Total Score:: 8 Nutrition Survey
[2022-01-05 07:35] VITALS: BP 158/78; BP 164/68; BMI 27.9
== END 2022-01-25 23:59 ==
LOC: CR 15:45
PROVIDERS: PCP Family Medicine; Referring Provider Internal Medicine Cardiovascular Disease; Visit Provider Internal Medicine Cardiovascular Disease
DX: I25.2 Old myocardial infarction (principal); Z95.5 Presence of coronary angioplasty implant and graft
CPT/HCPCS: 93798

== ENCOUNTER 2022-02-23 09:30 | Outpatient (RCR) | payer MEDICARE, SELFPAY ==
[2022-01-05 07:35] VITALS: BMI 27.9
[2022-01-26 01:07] VITALS: BP 158/78; BP 164/68
--- NOTE | 2022-02-07 07:10 | CR.ITP_ITS ---
Diagnosis Exercise - 60-day Assessment - Visit Date of Eval: 02/07/22 Session #:: 23 - Physician Prescribed Exercise Modalities: Treadmill, Airdyne, NuStep Frequency: 3x/week for 12 weeks [36 sessions] Intensity: 60-80% of age predicted maximum heart rate reserve Current METSs:: 5.5 Target Heart Rate:: 96-125 Current RPE:: 13-14 Maximum Excercise HR:: 114 Resting Blood Pressure: 146/68 Maximum Exercise Blood Pressure: 162/78 EKG Type: NSR to sinus tach w rare PAC and PVC noted Current Physical Activity or Exercising minutes: 34:16 - Outcomes & Goals Goals:: Verbalizes understanding of THR, RPE & goal METS by session 6, Documents in home exercise log/reports 30 min aerobic 5 day/wk by DC, Demonstrates accurate pulse taking by DC - Intervention & Plan Exercise Program Goals: Instruct on personal THR & RPE, Instruct on MET level & personal MET goal, Show patient to take own pulse /validate performance until accurate, Instruct on home exercise - 30-day Reassessments 30 day Reassessments:: Progressing - Physical Activity Home Exercise Physical Activity - Home Exercise: Safe Exercise, Warm-up, Self-monitoring, Cool-Down, Home Exercise > 30 min Daily, Sitting Time <3 hours/daily - Outcomes & Goals Outcomes/Goals: Demonstrates correct Warm-up/exercise Cool-Down (S3) if = 2.5 METs, Verbalizes symptoms of exercise intolerance by Session 3 (S3), Demonstrate safe equipment use (S3) & follows exercise prescrition (6) - Intervention & Plan Plan/Intervention: Instruct warm-up & cool-down if exercising at > 2 METs, Instruct on symptoms of exercise intolerance & actions to take, Instruct & monitor on saf, Assess intial functional capacity & safety risk - 30-day Reassessments 30 day Reassessments:: Met Nutrition - Initial Assessment Nutrition - 30-Day Assessment Nutrition - 60-Day Assessment - Program Goals Nutrition Program Goals: LDL <100 optimal. 100 - 129 Near optimal. 130 - 159 Borderline High. 160 - 189 High. Total Cholesterol <200 desirable. 200 - 239 Borderline High. >/= 240 High. HDL < 40 Low >/=60 High. Triglycerides <150 desirable. <199 optimal. VlDL 5 - 40. HgbA1C <7%. BMI <25 Patient has diagnosis of Hyperlipidemia (ICD E78)?: Yes - Visit Date of Assessment:: 02/07/22 Session #:: 23 - Cholesterol/Lipids Triglycerides (mg/dL): 90 - 10/21/2021 Total Cholesterol (mg/dL): 172 LDL Cholesterol (mg/dL): 88 HDL Cholesterol (mg/dL): 66 Determine presence & major risk factors that modify LDL goal: Hypertension or hypertensive medication, Low HDL cholesterol <40 mg/dL*, Family history of premature CHD in Male < 55 years: female <65 yearsFa, Age men > 45 years; women >/= 55 years Outcomes/Goals: Pt IDs own risk factors & lifestyle modifications by Session 10, Verbalizes symptoms of angina & response by session 3., Pt independently manages Intervention/Plan: Instruct on personal lipid levels & lipid goals/NCEP guidelines, Instruct on cholesterol Referral to dietitian:: No - Patient declined services 30-day Reassessments:: Progressing - Diabetes (Other Core Measures) Diabetes Type: Not Applicable - Weight Mgt (Other Care) Not Applicable: Yes Height: 5 ft 5 in Weight:: 165 lb BMI: 27.4 Diagnosis Overweight/Obesity BMI> 30% ICD-10 E66: No Diagnosis High BMI/Morbid Obesity BMI> 35% ICD-10 Z68: No Outcomes/Goals: Pt sets, maintains & shows weight loss goal & trend during rehab Intervention/Plan: Instruct on ideal BMI & set weight loss goal w/patient 30 day Reassessments:: Met - Healthy Eating Habits Will attend diet classes:: Yes Outcomes/Goals:: Consume diet rich in vegs,fruits,whole grain/high fiber,fish,lean meat, Limit sat/trans fats,cholesterol & added salts & sugars Intervention/Plan:: Assess current eating habits 30-day Reassessments:: Met - Education Gave educational materials for:: Healthy eating Nutrition - 90-Day Assessment Nutrition - Final Assessment Medical - Initial Assessment Medical- 30-Day Assessment Medical- 60-Day Assessment - Visit Date of Eval: 02/07/22 Session #:: 23 - Medication Compliance Preventative Medication(s):: Aspirin, Ticagrelor/P2Y12 inhibitor, Statin/lipid, Beta nneka H/O mental health issues: depression, anxiety, or addiction?: No Doesn?t believe in the benefits of treatment?: No Believes medications are unnecessary or harmful?: No Has a concern about medication side effects?: No Expresses concern over the cost of medications?: No Outcomes/Goals: Verbalizes medications,desired effect & common side effects @ DC, Pt self-reports following medication regimen, Keeps card in wallet w/medications listed by DC Interventions/plans: Instruct on medication effects & side effects, Review medication list w/patient every two weeks, Instruct importance of taking meds as ordered & assist problem solving 30-day Reassessments:: Met - Tobacco Use Tobacco Use: Non-smoker - Hypertension Hypertension Diagnosis:: Hypertension ICD-10 I10 Resting Blood Pressure:: 148/84 [place] [employer] Hypertension Guidelines: [place] [employer] Hypertension Guidelines. Normal BP Less than 120/80. Elevated BP 120/80. Hypertension Stage 1: BP 130-139/80-89. Hypertesnion Stage 2: BP 140 or higher/90 or higher. Hypertension Crisis: BP higher than 180/120 Peak Exercise Blood Pressure:: 182/72 Outcomes/Goals: Able to verbalize/achieve optimal blood pressure <130/80, Incorporates diet changes & exercise for blood pressure control by DC Interventions/plan: Instruct on optimal blood pressure, hypertension & medications, Instruct on effects of sodium, alcohol, stress, exercise &hypertension 30 day Reassessments:: Progressing - Tobacco Cessation Referral Individual Education/Counseling:: No Education Schedule Given:: Yes Medical- 90-Day Assessment Medical - Final Assessment Psychosocial - Initial Assess Psychosocial - 30-Day Assess Psychosocial - 60-Day Assess - VIsit Date of Eval: 02/07/22 Session #:: 23 Not Applicable: Yes History of previous Mental disease:: No - Psychosocial Test Tool Used:: PHQ-9 Questionnaire phq-9 Severity: Severity. 1-4 Minimal Depression. 5-9 Mild Depression. 10-14 Moderate Depression. 15-19 Moderately Sever Depression. 20-27 Severe Depression. Rule: - Referral to Behavioral Health PS - Interventions: Yes Attend Stress Management Classes, No Referral to Behavioral Health if PHQ-9 score >9:, No Referral to [facility], No Referral to Physician if PHQ-9 if score is 5-9: - Outcomes/Goals: See list Psychosocial Outcomes/Goals:: ID's personal stressors & 2 strategies to manage stress by discharge - Intervention/Plan: See List Interventions/Plan:: Assess stressors,coping strategies & signs of derpression on admission, Instruct/assist pt to develop coping & personal stress Mgt strategies, Instruct patient to recognize signs & symptoms of depression, Instruct patient to recog - 30-day Reassessments: 30 day Reassessments:: Met Psychosocial - 90-Day Assess Psychosocial - Final Assessmen Patient Health Questionnaire 60-Day Re-eval Assessment 1. Little interest or pleasure in doing things: Not at all 2. Feeling down, depressed, or hopeless: Not at all 3. Trouble falling or staying asleep, or sleeping too much: Not at all 4. Feeling tired or having little energy: Not at all 5. Poor appetite or overeating: Not at all 6. Feeling bad about yourself -- or that you are a failure or have let yourself or your family down: Not at all 7. Trouble concentrating on things, such as reading the newspaper or watching t elevision: Not at all 8. Moving or speaking so slowly that other people could have noticed. Or the opposite - being so fidgety or restless that you have been moving around a lot more than usual: Not at all 9. Thoughts that you would be better off , or of hurting yourself in some way: Not at all Total Score: 0 Self-Efficacy 60-Day Re-eval Assessment We would like to know how confident you are in doing certain activities. Please select your confidence level for:: Select your confidence level for the following using the scale 1-10 where 1 is not at all confident and 10 is totally confident. Your score is the average of all 6 responses. Fatigue: How confident are you that you can keep the fatigue caused by your disease from interfering with the things you want to do? Select Number: 10 Physical Discomfort or Pain: How confident are you that you can keep the physical discomfort or pain of your disease from interfering with the things you want to do? Select Number: 10 Emotional Distress: How confident are you that you can keep the emotional distress caused by your disease from interfering with the things you want to do? Select Number: 10 Other Symptoms or Health Problems: How confident are you that you can keep other symptoms or health problems from interfering with the things you want to do? Select Number: 10 Different Tasks and Activities: How confident are you that you can do the different tasks and activities needed to manage your health condition so as to reduce your need to see a doctor? Select Number: 10 Medication: How confident are you that you can do things other than just taking medication to reduce how much your illness affects your everyday life? Select Number: 10 Total Score:: 10 Nutrition Survey
[2022-02-07 07:18] VITALS: BP 146/68; BP 148/84; BP 182/72; BMI 27.4
== END 2022-02-24 23:59 ==
LOC: CR 09:30
PROVIDERS: PCP Family Medicine; Referring Provider Internal Medicine Cardiovascular Disease; Visit Provider Internal Medicine Cardiovascular Disease
DX: I21.4 Non-ST elevation (NSTEMI) myocardial infarction (principal)
CPT/HCPCS: 93798

== ENCOUNTER 2022-03-11 09:30 | Outpatient (RCR) | payer MEDICARE, SELFPAY ==
[2022-02-07 07:18] VITALS: BMI 27.4
[2022-02-25 00:38] VITALS: BP 146/68; BP 148/84; BP 182/72
--- NOTE | 2022-03-07 08:55 | CR.ITP_ITS ---
Diagnosis Exercise - Final/Discharge - Visit Date of Eval: 03/07/22 Session #:: 34 - Physician Prescribed Exercise Modalities: Treadmill, Airdyne, NuStep Frequency: 3x/week for 12 weeks [36 sessions] Intensity: 60-80% of age predicted maximum heart rate reserve Current METSs:: 6.0 Target Heart Rate:: 96-123 Current RPE:: 13-14 Maximum Excercise HR:: 120 Resting Blood Pressure: 154/78 Maximum Exercise Blood Pressure: 202/68 EKG Type: NSR to sinus tach w/rare PAC and PVC Current Physical Activity or Exercising minutes: 35:44 - Outcomes & Goals Goals:: Verbalizes understanding of THR, RPE & goal METS by session 6, Documents in home exercise log/reports 30 min aerobic 5 day/wk by DC, Demonstrates accurate pulse taking by DC - Intervention & Plan Exercise Program Goals: Instruct on personal THR & RPE, Instruct on MET level & personal MET goal, Show patient to take own pulse /validate performance until accurate, Instruct on home exercise - 30-day Reassessments 30 day Reassessments:: Met - Physical Activity Home Exercise Physical Activity - Home Exercise: Safe Exercise, Warm-up, Self-monitoring, Cool-Down, Home Exercise > 30 min Daily, Sitting Time <3 hours/daily - Outcomes & Goals Outcomes/Goals: Demonstrates correct Warm-up/exercise Cool-Down (S3) if = 2.5 METs, Verbalizes symptoms of exercise intolerance by Session 3 (S3), Demonstrate safe equipment use (S3) & follows exercise prescrition (6) - Intervention & Plan Plan/Intervention: Instruct warm-up & cool-down if exercising at > 2 METs, Instruct on symptoms of exercise intolerance & actions to take, Instruct & monitor on saf, Assess intial functional capacity & safety risk - 30-day Reassessments 30 day Reassessments:: Met Nutrition - Initial Assessment Nutrition - 30-Day Assessment Nutrition - 60-Day Assessment Nutrition - 90-Day Assessment Nutrition - Final Assessment - Program Goals Nutrition Program Goals: LDL <100 optimal. 100 - 129 Near optimal. 130 - 159 Borderline High. 160 - 189 High. Total Cholesterol <200 desirable. 200 - 239 Borderline High. >/= 240 High. HDL < 40 Low >/=60 High. Triglycerides <150 desirable. <199 optimal. VlDL 5 - 40. HgbA1C <7%. BMI <25 Patient has diagnosis of Hyperlipidemia (ICD E78)?: Yes - Visit Date of Assessment:: 03/07/22 Session #:: 34 - Cholesterol/Lipids Determine presence & major risk factors that modify LDL goal: Hypertension or hypertensive medication, Age men > 45 years; women >/= 55 years Outcomes/Goals: Pt IDs own risk factors & lifestyle modifications by Session 10, Verbalizes symptoms of angina & response by session 3., Pt independently manages Intervention/Plan: Instruct on personal lipid levels & lipid goals/NCEP guidelines, Instruct on cholesterol - Diabetes (Other Core Measures) Diabetes Type: Not Applicable - Weight Mgt (Other Care) Height: 5 ft 5 in Weight:: 164 lb BMI: 27.3 Diagnosis Overweight/Obesity BMI> 30% ICD-10 E66: No Diagnosis High BMI/Morbid Obesity BMI> 35% ICD-10 Z68: No Outcomes/Goals: Pt sets, maintains & shows weight loss goal & trend during rehab Intervention/Plan: Instruct on ideal BMI & set weight loss goal w/patient 30 day Reassessments:: Met - Healthy Eating Habits Will attend diet classes:: Yes Outcomes/Goals:: Consume diet rich in vegs,fruits,whole grain/high fiber,fish,lean meat, Limit sat/trans fats,cholesterol & added salts & sugars Intervention/Plan:: Assess current eating habits 30-day Reassessments:: Met - Education Gave educational materials for:: Healthy eating Medical - Initial Assessment Medical- 30-Day Assessment Medical- 60-Day Assessment Medical- 90-Day Assessment Medical - Final Assessment - Visit Date of Eval: 03/07/22 Session #:: 34 - Medication Compliance Preventative Medication(s):: Aspirin, Statin/lipid, Beta nneka H/O mental health issues: depression, anxiety, or addiction?: No Doesn?t believe in the benefits of treatment?: No Believes medications are unnecessary or harmful?: No Has a concern about medication side effects?: No Expresses concern over the cost of medications?: No Outcomes/Goals: Verbalizes medications,desired effect & common side effects @ DC, Pt self-reports following medication regimen, Keeps card in wallet w /medications listed by DC Interventions/plans: Instruct on medication effects & side effects, Review medication list w/patient every two weeks, Instruct importance of taking meds as ordered & assist problem solving 30-day Reassessments:: Met - Tobacco Use Tobacco Use: Non-smoker - Hypertension Hypertension Diagnosis:: Hypertension ICD-10 I10 Resting Blood Pressure:: 154/78 [place] [employer] Hypertension Guidelines: [place] [employer] Hypertension Guidelines. Normal BP Less than 120/80. Elevated BP 120/80. Hypertension Stage 1: BP 130-139/80-89. Hypertesnion Stage 2: BP 140 or higher/90 or higher. Hypertension Crisis: BP higher than 180/120 Peak Exercise Blood Pressure:: 202/68 Outcomes/Goals: Able to verbalize/achieve optimal blood pressure <130/80, Incorporates diet changes & exercise for blood pressure control by DC Interventions/plan: Instruct on optimal blood pressure, hypertension & medications, Instruct on effects of sodium, alcohol, stress, exercise &hypertension 30 day Reassessments:: Not Met - Tobacco Cessation Referral Smoking Cessation Referral:: No Individual Education/Counseling:: No Education Schedule Given:: Yes Psychosocial - Initial Assess Psychosocial - 30-Day Assess Psychosocial - 60-Day Assess Psychosocial - 90-Day Assess Psychosocial - Final Assessmen Patient Health Questionnaire Discharge Assessment 1. Little interest or pleasure in doing things: Not at all 2. Feeling down, depressed, or hopeless: Not at all 3. Trouble falling or staying asleep, or sleeping too much: Not at all 4. Feeling tired or having little energy: Not at all 5. Poor appetite or overeating: Not at all 6. Feeling bad about yourself -- or that you are a failure or have let yourself or your family down: Not at all 7. Trouble concentrating on things, such as reading the newspaper or watching television: Not at all 8. Moving or speaking so slowly that other people could have noticed. Or the opposite - being so fidgety or restless that you have been moving around a lot more than usual: Not at all 9. Thoughts that you would be better off , or of hurting yourself in some way: Not at all How difficult have these problems made it for you to do your work, take care of things at home, or get along with other people?: Not difficult at all Total Score: 0 Self-Efficacy Discharge Assessment We would like to know how confident you are in doing certain activities. Please select your confidence level for:: Select your confidence level for the following using the scale 1-10 where 1 is not at all confident and 10 is totally confident. Your score is the average of all 6 responses. Fatigue: How confident are you that you can keep the fatigue caused by your disease from interfering with the things you want to do? Select Number: 10 Physical Discomfort or Pain: How confident are you that you can keep the physical discomfort or pain of your disease from interfering with the things you want to do? Select Number: 10 Emotional Distress: How confident are you that you can keep the emotional distress caused by your disease from interfering with the things you want to do? Select Number: 10 Other Symptoms or Health Problems: How confident are you that you can keep other symptoms or health problems from interfering with the things you want to do? Select Number: 10 Different Tasks and Activities: How confident are you that you can do the different tasks and activities needed to manage your health condition so as to reduce your need to see a doctor? Select Number: 10 Medication: How confident are you that you can do things other than just taking medication to reduce how much your illness affects your everyday life? Select Number: 10 Total Score:: 10 Nutrition Survey
[2022-03-07 09:00] VITALS: BP 154/78; BP 202/68; BMI 27.3
== END 2022-03-27 23:59 ==
LOC: CR 09:30
PROVIDERS: PCP Family Medicine; Referring Provider Internal Medicine Cardiovascular Disease; Visit Provider Internal Medicine Cardiovascular Disease
DX: I25.2 Old myocardial infarction (principal)
CPT/HCPCS: 93798

== ENCOUNTER → 2022-06-24 | Outpatient (CLI) | payer MEDICARE, SELFPAY ==
[2022-03-07 09:00] VITALS: BMI 27.3
--- NOTE | 2022-06-24 14:49 | BI_ITS ---
MAMMOGRAPHY - BILATERAL SCREENING REASON FOR EXAM: Female, 71 years old. Routine annual screening examination. PERTINENT HISTORY: Non-contributory. TECHNIQUE: Digital bilateral breast mirela (3D mammographic acquisition) in the CC and MLO projections. 2-D mediolateral oblique (MLO) and craniocaudad (CC) views of both breasts were obtained. CAD: Full Field Digital Mammography with Computer Added Detection was performed. COMPARISON: Comparison is made with prior study of 01/12/2019 and 05/15/2017. FINDINGS: Breast Composition: There are scattered areas of fibroglandular density. There are no dominant masses or suspicious calcifications. No other significant abnormalities are identified. There has been no significant change since the prior study. BI/SCRN MAMM (CAD)W/MIRELA BILAT IMPRESSION: Stable bilateral screening mammogram. Yearly follow-up mammogram recommended. (A) ASSESSMENT CATEGORY: BIRADS Category 1: Negative. A letter regarding these results will be sent to the patient by the facility within 30 days. Approximately 10% of breast cancers are not detected by mammography. A normal mammogram should not delay biopsy of a clinically suspicious abnormality. [id number] Electronically Signed: Mo Miller MD at 15:34 EDT ,
== END | disposition home or self-care (01) ==
LOC: OPBI 14:49
PROVIDERS: PCP Family Medicine; Referring Provider Family Medicine; Visit Provider Family Medicine
DX: Z12.31 Encounter for screening mammogram for malignant neoplasm of breast (principal)
CPT/HCPCS: 77063; 77067

== ENCOUNTER → 2022-10-26 | Outpatient (CLI) | payer MEDICARE, SELFPAY ==
[2022-09-07 10:28] VITALS: BMI 27.3
--- NOTE | 2022-10-26 12:44 | CDU_ITS ---
Reason For Study: CAROTID STENOSIS Rt. Velocities/BP Lt. Velocities/BP Prox CCA 121.9/12.6 cm/sec. Prox CCA 112.5/17.5 cm/sec. Mid CCA 107.2/12.6 cm/sec. Mid CCA 99.7/13.9 cm/sec. Dist CCA 85.1/12.6 cm/sec. Dist CCA 74.2/13.9 cm/sec. Prox ICA 152.1/31.6 cm/sec. Prox ICA 80.9/20.8 cm/sec. Mid ICA 126.6/22.5 cm/sec. Mid ICA 53.9/15.8 cm/sec. Dist ICA 110.7/24.8 cm/sec. Dist ICA 88.3/23.2 cm/sec. Rt. ICA/CCA = 152.1/107.2=1.4. Lt. ICA/CCA = 88.3/99.7=0.9. Prox ECA 128.9/4.7 cm/sec. Prox ECA 109.4/8.9 cm/sec. Rt. Vert. 36.8/8.9 cm/sec. Lt. Vert. 56.4/18.3 cm/sec. Right Extracranial There is homogeneous, smooth atherosclerotic plaque noted in the right common carotid artery. There is heterogeneous, irregular atherosclerotic plaque noted in the right internal carotid artery. There is homogeneous, smooth atherosclerotic plaque noted in the right external carotid artery. Antegrade flow is noted in the right vertebral artery. Left Extracranial There is homogeneous, smooth atherosclerotic plaque noted in the left common carotid artery. There is homogeneous, smooth atherosclerotic plaque noted in the left internal carotid artery. There is homogeneous, smooth atherosclerotic plaque noted in the left external carotid artery. Antegrade flow is noted in the left vertebral artery. Procedure Carotid Duplex 36811. This is a Carotid Duplex examination using B-mode, color flow and specral Doppler. Exam performed in department. VL/Carotid Duplex Ultrasound Interpretation Summary Irregular plaque at the proximal right internal carotid artery with some calcif ic shadowing. 50 to 69% stenosis of the right proximal internal carotid artery Less than 50% stenosis right external carotid artery Widely patent postoperative changes of the left carotid bulb and internal carot id artery with smooth plaque and less than 50% stenosis. Less than 50% stenosis left external carotid artery No images taken of the left thyroid on this examination Patent and antegrade vertebral arteries bilaterally No change from November 01, 2021 Ordering Physician: Bismark Carroll Referring Physician: Tong Santana Performed By: Trisha Hutton, RDCS, RVT
== END | disposition home or self-care (01) ==
LOC: CVS 12:42
PROVIDERS: PCP Family Medicine; Referring Provider Surgery; Visit Provider Surgery
DX: I65.23 Occlusion and stenosis of bilateral carotid arteries (principal)
CPT/HCPCS: 93880

== ENCOUNTER → 2023-03-02 | Outpatient (CLI) | payer MEDICARE, SELFPAY ==
[2022-09-07 10:28] VITALS: BMI 27.3
[2023-03-02 09:27] LABS: AST(SGOT) 11 U/L (15-37); Alanine Aminotransfer ALT/SGPT 20 U/L (13-56); Albumin, Serum 3.5 g/dL (3.2-5.0); Alkaline Phosphatase 100 U/L (45-117); Anion Gap 5 (5-15); BUN 11 mg/dL (7-18); BUN/Creat Ratio 12.3 RATIO (10-20); Calcium,Total 9.7 mg/dL (8.5-10.1); Chloride 108 mmol/L (98-107); Cholesterol 181 mg/dL (200); EST Glomerular Filtration Rate 65 mL/min (>60); Est Glom Filt Rate - Afr Amer 79 mL/min (>60); Globulin 3.6 g/dL (2.2-4.2); Glucose 92 mg/dL (74-106); High Density Lipoprotein 58 mg/dL; Potassium 3.9 mmol/L (3.5-5.1); Protein, Total 7.1 g/dL (6.4-8.2); Sodium Level 142 mmol/L (136-145); Triglycerides 155 mg/dL; Very Low Density Lipoprotein 31 mg/dL (5-40)
== END | disposition home or self-care (01) ==
LOC: LAB 08:31
PROVIDERS: PCP Family Medicine; Referring Provider Internal Medicine Cardiovascular Disease; Visit Provider Internal Medicine Cardiovascular Disease
DX: I25.10 Atherosclerotic heart disease of native coronary artery without angina pectoris (principal)
CPT/HCPCS: 36415; 80053; 80061

== ENCOUNTER → 2023-03-03 | Outpatient (CLI) | payer MEDICARE, SELFPAY ==
[2022-09-07 10:28] VITALS: BMI 27.3
--- NOTE | 2023-03-03 10:28 | RAD_ITS ---
STUDY: X-RAY - LUMBAR SPINE REASON FOR EXAM: Female, 72 years old. chronic low back TECHNIQUE: XR Spine Lumbar 2 Views COMPARISON: 10/30/2018 FINDINGS: Normal lumbar lordosis. There is a dextroscoliosis of the lumbar spine. There is a normal alignment of the vertebrae. There is multilevel endplate spondylosis of the lumbar vertebrae. There is multi-level degenerative disc disease with multi-level disc space narrowing. There are atherosclerotic vascular calcifications. The soft tissue structures are unremarkable. RAD/Lumbar Spine 2 or 3 Views IMPRESSION: Degenerative changes of the spine, as detailed above. No significant change since prior. Electronically Signed: Alex Bach MD at 15:28 EDT ,
== END | disposition home or self-care (01) ==
LOC: MTRAD 10:28
PROVIDERS: PCP Family Medicine; Referring Provider Family Medicine; Visit Provider Family Medicine
DX: M54.50 Low back pain, unspecified (principal); G89.29 Other chronic pain; S39.012A Strain of muscle, fascia and tendon of lower back, initial encounter
CPT/HCPCS: 72100

== ENCOUNTER 2023-03-05 09:27 | Emergency (ER) | payer MEDICARE, SELFPAY ==
[2022-09-07 10:28] VITALS: BMI 27.3
[2023-03-05 09:27] VITALS: BP 163/79; PULSE 86; RESP 16; TEMP 35.9; O2SAT 97; BMI 26.6
--- NOTE | 2023-03-05 10:06 | EDS_ITS ---
HPI History of Present Illness Chief Complaint: Back Informant: patient and spouse/S.O. Narrative Narrative: Persistent lower back pain for the past 5 weeks. Symptoms started when she was leaning over flower beds gardening. No pain on the legs. No loss of bowel or bladder control. Pain worse with movement. She has similar symptoms in the past. She initially went to [facility] placed on steroids and muscle relaxer states muscle laxer just makes her sleepy. She went through 2 weeks of physical therapy states it worsened her symptoms. Seen the chiropractor 4 times the last time 2 days ago. She saw her PCP this past had an x-ray ordered and p erformed on Monday. States was lying out of the truck on Monday when she felt increasing pain. No direct falls. Has been using Tylenol and ibuprofen none taken today. Reports discussion with her PCP if no improvement then MRI will be ordered as an outpatient. She has not seen pain management in the past. She has had back pain however would not last this long. Reviewing records x-ray lumbar spine in the system from 2 days ago notes degenerative changes no acute process. Prior similar symptoms: Yes and With Prior Back Pain [facility] Medical History Atherosclerotic heart disease of [place] coronary artery without angina pectoris Carotid stenosis, bilateral Cutaneous skin tags Essential hypertension Former smoker Gastrointestinal complaints Hyperlipidemia Myocardial infarction Seborrheic keratosis Vertigo Home Medications amlodipine 10 mg tablet 10 mg PO DAILY bp 09/12/18 [History Last Taken 11/11/21] simvastatin 40 mg tablet 40 mg PO QHS cholesterol 09/12/18 [History Last Taken 11/10/21] aspirin 81 mg tablet,delayed release 81 mg PO DAILY heart 07/31/20 [History Last Taken 11/10/21] cholecalciferol (vitamin D3) 50 mcg (2,000 unit) capsule 50 mcg PO BID SUPPLEMENT 11/11/21 [History Last Taken 11/11/21] fluticasone propionate 50 mcg/actuation nasal spray,suspension 2 spray intranasal DAILY PRN Sinus Symptoms 11/11/21 [History Last Taken Unknown] carvedilol 3.125 mg tablet 3.125 mg PO BID #60 tabs 11/13/21 [Rx Last Taken Unknown] clopidogrel 75 mg tablet (Plavix) 75 mg PO DAILY 03/21/22 [History Last Taken Unknown] hydralazine 10 mg tablet 10 mg PO BID 03/21/22 [History Last Taken Unknown] rabeprazole 20 mg tablet,delayed release See Rx Instructions .Route .COMPLEX #90 tabs 12/05/22 [Rx Last Taken Unknown] Allergy/AdvReac Type Severity Reaction Status Date / Time hydrochlorothiazide Allergy Severe Blood Verified 03/05/23 09:27 Pressure Sporadic Family History Mother Cancer Brother Cancer Surgical History History of carotid endarterectomy (07/2020) History of cholecystectomy History of coronary artery stent placement (11/12/21) History of sinus surgery Social History Smoking Status: Former smoker alcohol intake: never substance use type: does not use what type of physical activity do you participate in: walking frequency: daily ROS ROS ED Constitutional Constitutional ED: Denies chills, fever(s) or sweats Eyes Eyes: Denies change in vision ENT ENT ED: Denies dysphagia or sore throat Cardiovascular Cardiovascular: Denies chest pain, leg edema, palpitations or racing heartbeat Respiratory/Chest Respiratory/Chest: Denies cough, dyspnea or dyspnea on exertion Gastrointestinal Gastrointestinal: Denies abdominal pain, diarrhea, nausea or vomiting Genitourinary Genitourinary ED: Denies dysuria, hematuria or urinary frequency Musculoskeletal Musculoskeletal: Reports back pain; Denies extremity pain or neck pain Integumentary Denies rash or wounds Neurologic Neurologic: Denies headache(s), paresthesias or weakness EXAM Physical Exam Const Vital Signs: 03/05/23 09:27 Temperature 96.6 F L Temperature Source Temporal Pulse Rate 86 Respiratory Rate 16 Blood Pressure 163/79 H Blood Pressure Mean 107 Pulse Ox 97 Positive well nourished and well developed Constitutional Narrative: Sitting on side of bed no significant discomfort. General Appearance ED: well developed and NAD HEENT Reports moist mucous membranes normocephalic and atraumatic Eyes PERRL, EOMs intact bilaterally and conjunctivae normal General Eye ED: Yes normal appearance of both eyes Neck no lymphadenopathy and supple General: Negative for tenderness Chest Wall Chest: Negative for tenderness Resp normal respiratory effort and normal air movement Effort and Inspection: symmetric chest movement; Negative for respiratory distress Cardio regular rate, regular rhythm and no murmurs Peripheral Pulses: pulses 2+ throughout GI normal to inspection, nondistended, normoactive bowel sounds and non-tender Palpation: Negative for guarding or rebound tenderness present Back/Spine no CVA tenderness Back/Spine Narrative: No midline tenderness, mild paralumbar tenderness straight leg test negative bilaterally. 1+ patellar reflex bilaterally. Strength hip flexors intact and symmetric. Pulses active Leon. Extremity normal to inspection General Extremety ED: Negative for edema or tenderness General Extremity: Negative for edema Neuro oriented x3 and no sensory deficits noted Sensorium / Orientation: awake and alert Skin no rashes or lesions noted and no wounds MDM MDM MDM Narrative Medical decision making narrative: Interventions / MDM: Differential diagnosis: Lumbar strain, lumbar disc herniation Diagnosis considered but do not suspect: No cauda equina symptoms My EKG interpretation: N/A Imaging independently reviewed and interpreted by myself: N/A External documents reviewed: N/A Test considered but not ordered:N/A ED course: Patient presenting back pain for 5 weeks worse with movement. History reports symptoms started when bending over, suspect hernia with no cauda equina symptoms. No radicular symptoms. She declines any strong pain medications. Is not a diabetic. Requesting injections of NSAIDs Toradol. This was ordered along with Kenalog. She will be referred to pain management for outpatient evaluation and further treatment. From history states PCP working on outpatient MRI. She will continue Tylenol or ibuprofen and follow-up with her doctors. Re-evaluation: stable Disposition discussed with patient/family/significant other: Patient and significant other Case discussed with consulting clinician: N/A This note was generated with [employer] dictation software. It may contain incorrect words, spelling, and punctuation that were not noted in checking the note before signing. Discharge Plan Triage Chief Complaint: Back ED Provider: Jose Juan Gold Dx/Rx/DC Orders Clinical Impression: Back pain, Acute lumbar myofascial strain Instructions: ED Back Pain (Acute or Chronic) Prescriptions: No Action amlodipine 10 mg tablet 10 mg PO DAILY simvastatin 40 mg tablet 40 mg PO QHS clopidogrel [Plavix] 75 mg tablet 75 mg PO DAILY hydralazine 10 mg tablet 10 mg PO BID aspirin 81 MG tablet,delayed release (DR/EC) 81 mg PO DAILY fluticasone propionate 50 mcg/actuation spray,suspension 2 spray INTRANASAL DAILY PRN (Reason: Sinus Symptoms) Patient Comments: SHAKE LIQUID AND USE 2 sprays into each nostril once daily cholecalciferol (vitamin D3) 50 mcg (2,000 unit) Capsule 50 mcg PO BID Patient Comments: PT STATES TAKES ONE CAPSULE IN THE AM AND ONE AT LUNCH. carvedilol 3.125 mg Tablet 3.125 mg PO BID Qty: 60 0RF rabeprazole 20 mg tablet,delayed release (DR/EC) See Rx Instructions .ROUTE .COMPLEX Qty: 90 2RF Dose Instruction: take 1 tablet by mouth once daily Rx Instructions: take 1 tablet by mouth once daily Primary Care Provider: Tong Santana Referrals: Jass Flores DO [Non-Staff] - 1 Week Tong Santana DO [Primary Care Provider] - Activity Restrictions/Additional Instructions: History back pain suspect possibility of disc herniation. Your PCP is working on outpatient MRI. Call Dr. Flores's office for outpatient evaluation and treatment recommendations from them. Continue Tylenol ibuprofen at home. Status post Kenalog steroid injection and Toradol. Disposition Disposition: Home, Self Care
[2023-03-05] MEDS: Triamcinolone Acetonide 40 MG/ML Vial IM (10:21)
[2023-03-05] MEDS: Ketorolac 30 MG/ML Syringe IM (10:21)
== END 2023-03-05 10:40 | disposition home or self-care (01) ==
LOC: ED 10:15
PROVIDERS: Emergency Provider Emergency Medicine; PCP Family Medicine; Visit Provider Emergency Medicine
DX: S39.012A Strain of muscle, fascia and tendon of lower back, initial encounter (principal); E78.5 Hyperlipidemia, unspecified; I10 Essential (primary) hypertension; I25.10 Atherosclerotic heart disease of native coronary artery without angina pectoris; Z87.891 Personal history of nicotine dependence; X50.1XXA Overexertion from prolonged static or awkward postures, initial encounter; Y93.H2 Activity, gardening and landscaping; Y92.89 Other specified places as the place of occurrence of the external cause
CPT/HCPCS: 96372; 99282

== ENCOUNTER → 2023-05-31 | Outpatient (CLI) | payer MEDICARE, SELFPAY ==
[2022-09-07 10:28] VITALS: BMI 27.3
--- NOTE | 2023-05-31 11:38 | RAD_ITS ---
STUDY: X-RAY - RIGHT HAND REASON FOR EXAM: Female, 72 years old. Right hand/finger pain - pain between the right second and third metacarpals for 3 months. Unsure of injury. TECHNIQUE: 3 views of the right hand. COMPARISON: None. FINDINGS: Normal radiocarpal articulation. Normal distal radioulnar joint. Intact visualized carpal bones. There is mild triscaphe arthrosis. There is mild degenerative arthrosis of the carpometacarpal (CMC) articulation of the thumb. Normal second through fifth carpometacarpal joints. There is moderate degenerative arthrosis of the first through third MCP joints. There is mild degenerative arthrosis of the interphalangeal joint of the thumb, as well as second through fifth PIP and DIP joints. Normal metacarpi. Normal proximal and distal phalanges of the thumb. Normal phalanges of the second through fifth fingers. There is no demonstrated acute fracture. The soft tissue structures are unremarkable. 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 Mild degenerative arthrosis of the triscaphe joint, first CMC joint, interphalangeal joint of the thumb, as well as second through fifth PIP and DIP joints. No demonstrated acute fracture. Electronically Signed: Jasper Quintero MD at 10:27 EDT ,
== END | disposition home or self-care (01) ==
LOC: RAD 11:29
PROVIDERS: PCP Family Medicine; Referring Provider Internal Medicine; Visit Provider Internal Medicine
DX: M79.641 Pain in right hand (principal)
CPT/HCPCS: 73130

== ENCOUNTER → 2023-09-28 | Outpatient (CLI) | payer MEDICARE, SELFPAY ==
[2022-09-07 10:28] VITALS: BMI 27.3
--- NOTE | 2023-09-28 09:54 | US_ITS ---
STUDY: SUPERFICIAL ULTRASOUND - LEFT LOWER EXTREMITY EDEMA. REASON FOR EXAM: Female, 72 years old. Soft tissue swelling TECHNIQUE: A superficial ultrasound was performed with real-time and static andrews-scale imaging. COMPARISON: None. FINDINGS: The lower left leg was examined with ultrasound. There is diffuse swelling. No focal fluid collection is seen. US/Ext Non Vasc Limited/Soft Tiss IMPRESSION: Diffuse nonspecific swelling. Electronically Signed: Mo Miller MD at 15:14 EST ,
--- OUTSIDE RECORDS SUMMARY | 2023-09-28 12:20 | XMS RPT_ITS | CCD ---
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 cardiac di sorder: Father(V17.49, Z82.49) Status:Active Family history of malignant neoplasm: Mother(V16.9, Z80.9) Status:Active Unknown Family Member Name Dates Details Family history of cardiac di sorder: Father(V17.49, Z82.49) Status:Active Family history of malignant neoplasm: Mother(V16.9, Z80.9) Status:Active Unknown Family Member Name Dates Details Family history of cardiac di sorder: Father(V17.49, Z82.49) Status:Active Family history of malignant neoplasm: Mother(V16.9, Z80.9) Status:Active Unknown Family Member Name Dates Details Family history of cardiac di sorder: Father(V17.49, Z82.49) Status:Active Family history of malignant neoplasm: Mother(V16.9, Z80.9) Status:Active Advance Directives No Advanced Directives Records FoundNo Advanced Directives Records FoundNo Advanced Directives Records Found Chief Complaint patient is here for check up on sinus.ringing in the ear Additional Source Comments INFORMATION SOURCE (unrecogn ized section and content) DATE CREATED AUTHOR AUTHOR'S ORGANIZ ATION 04/09/2022 Touchworks DATE CREATED AUTHOR AUTHOR'S ORGANIZ ATION 08/07/2023 [facility] Reason for Visit (unrecogniz ed section and content) Reason Onset Date Comments Med Refill 12/09/2022 Reason Comments 6 Month Follow-up Care Teams (unrecognized sec tion and content) Maintenance Mechanic Relationship Specialty Start Date End Date Gerry Santana [address] [place] [address] PCP - General 05/15/18 Maintenance Mechanic Relationship Specialty Start Date End Date Gerry Santana [address] [place], [place] [id number]- PCP - General 05/15/18 Maintenance Mechanic Relationship Specialty Start Date End Date Gerry Santana [address] [place], [place] [id number] 005- PCP - General 05/15/18 Maintenance Mechanic Relationship Specialty Start Date End Date Gerry Santana [address] [place], [place] [id number] 836- PCP - General 05/15/18 Maintenance Mechanic Relationship Specialty Start Date End Date Gerry Santana [address] [place] [address] PCP - General 05/15/18 FOR RECORDS PERTAINING TO PATIENTS WHO ARE OR HAVE BEEN ENROLLED IN A CHEMICAL DEPENDENCY/SUBSTANCEABUSE PROGRAM, SOME INFORMATION MAY BE OMITTED. This clinical summary was aggregated from multiple sources. Caution should be exercised in using it in the provision of clinical care. This summary normalizes information from multiple sources, and as a consequence, information in this document may materially change the coding, format and clinical context of patient data. In addition, data may be omitted in some cases. CLINICAL DECISIONS SHOULD BE BASED ON THE PRIMARY CLINICAL RECORDS. [facility], [facility]. provides no warranty or guarantee of the accuracy or completeness of information in this document."
== END | disposition home or self-care (01) ==
LOC: US 09:53
PROVIDERS: PCP Family Medicine; Referring Provider Family Medicine; Visit Provider Family Medicine
DX: R22.42 Localized swelling, mass and lump, left lower limb (principal)
CPT/HCPCS: 76882

== ENCOUNTER → 2023-10-27 | Outpatient (CLI) | payer MEDICARE, SELFPAY ==
[2022-09-07 10:28] VITALS: BMI 27.3
--- NOTE | 2023-10-27 09:51 | CDU_ITS ---
Reason For Study: left carotid stenosis S/P CEA Rt. Velocities/BP Lt. Velocities/BP Prox CCA 92.8/16.7 cm/sec. Prox CCA 96.5/19.2 cm/sec. Mid CCA 76.9/15.5 cm/sec. Mid CCA 84.2/17.9 cm/sec. Dist CCA 67.4/14.6 cm/sec. Dist CCA 69.5/17.9 cm/sec. Prox ICA 123.5/30.3 cm/sec. Prox ICA 57.5/14.1 cm/sec. Mid ICA 107.6/21.7 cm/sec. Mid ICA 55.6/16.9 cm/sec. Dist ICA 145.4/35.8 cm/sec. Dist ICA 74.6/18.6 cm/sec. Rt. ICA/CCA = 145.4/76.9=1.9. Lt. ICA/CCA = 74.6/84.2=0.9. Prox ECA 123.5/17.5 cm/sec. Prox ECA 90.4/13.0 cm/sec. Rt. Vert. 34.9/9.4 cm/sec. Lt. Vert. 66.9/19.7 cm/sec. Right Extracranial There is homogeneous, smooth atherosclerotic plaque noted in the right common carotid artery. There is heterogeneous, irregular atherosclerotic plaque noted in the right internal carotid artery. There is homogeneous, smooth atherosclerotic plaque noted in the right external carotid artery. Antegrade flow is noted in the right vertebral artery. Left Extracranial There is homogeneous, smooth atherosclerotic plaque noted in the left common carotid artery. There is homogeneous, smooth atherosclerotic plaque noted in the left internal carotid artery. There is homogeneous, smooth atherosclerotic plaque noted in the left external carotid artery. Antegrade flow is noted in the left vertebral artery. Procedure Carotid Duplex 70119. This is a Carotid Duplex examination using B-mode, color flow and specral Doppler. Exam performed in department. VL/Carotid Duplex Ultrasound Interpretation Summary Irregular calcific plaque with shadowing at the proximal right internal carotid artery with less than 50% stenosis Less than 50% stenosis right external carotid artery Postoperative changes of the left carotid bulb and proximal internal carotid ar hannah with less than 50% stenosis Less than 50% stenosis left external carotid artery Patent antegrade vertebral arteries bilaterally No change from the previous examination of October 26, 2022 Ordering Physician: Bismark Carroll Referring Physician: Tong Santana Performed By: Trisha Hutton, LC, RVT
--- OUTSIDE RECORDS SUMMARY | 2023-10-27 10:10 | XMS RPT_ITS | CCD ---
Author Name Unknown Address [address] [place] [address] Organization [facility] Care Team Providers Care Primer Supervisor Name Role Phone KEONJONAS (MANAGER FEDERAL) Unavailable Unavailable Gerry Santana Unavailable Unavailable Unavailable Unavailable Unavailable Gerry Santana Primary Care Provider Gerry Santana Primary Care Provider [phone] ALY TARANGO Attending Unavailable GERRY SANTANA Primary Care Unavailable CANDICE GRAF Attending Unavailable GERRY SANTANA Primary Care Unavailable Allergies Allergy Classification Reported Allergen(s) Allergy Type Date of Onset Reaction(s) Facility hydroCHLOROthiazide (1 source) hydroCHLOROthiaz jacey; Translations: [hydrochlorothia zide] Drug Allergy [facility] Work Phone: (12 sources) hydroCHLOROthiaz jacey; Translations: [HYDROCHLOROTHIA ZIDE] Drug Allergy 01-21-20 11 [facility] Repository (8 sources) ezetimibe Drug Allergy 09-28-19 16 Nausea Only [facility] (8 sources) Lisinopril Propensity to adverse reactions 09-28-19 16 [facility] (8 sources) Losartan Drug Allergy 05-07-20 19 [facility] (8 sources) Metoprolol Drug Allergy 09-28-19 16 [facility] (8 sources) nebivolol Drug Allergy 09-28-19 16 Nausea Only [facility] (7 sources) Rosuvastatin calcium Propensity to adverse reactions 09-28-19 16 Nausea Only [facility] (8 sources) Valsartan Propensity to adverse reactions 09-28-19 16 [facility] (1 source) rosuvastatin Drug Allergy 09-28-19 16 Nausea Only [facility] Medications Current Medications Medication Drug Class(es) Dates [...] Coronary arteriosclerosis; Translations: [Atherosclerotic heart disease of ute coronary artery without angina pectoris] Onset: 05-15-2018 [...] 11:05-0500 Body height 167.6 cm Candice Graf STRAP BUCKLER MACHINE - MANAGER FEDERAL Work Phone: [facility] 08-04-2023 11:05-0500 Body mass index (BMI) [Ratio] 26.24 kg/m2 Candice Graf STRAP BUCKLER MACHINE - MANAGER FEDERAL Work Phone: [facility] 08-04-2023 11:05-0500 Body weight 73.75 kg Candice Graf STRAP BUCKLER MACHINE - MANAGER FEDERAL Work Phone: [facility] 08-04-2023 11:05-0500 Diastolic blood pressure 76 mm[Hg] Candice Graf STRAP BUCKLER MACHINE - MANAGER FEDERAL Work Phone: [facility] 08-04-2023 11:05-0500 Heart rate 76 /min Candice Graf STRAP BUCKLER MACHINE - MANAGER FEDERAL Work Phone: [facility] 08-04-2023 11:05-0500 Respiratory rate 16 /min Candice Graf STRAP BUCKLER MACHINE - MANAGER FEDERAL Work Phone: [facility] 08-04-2023 11:05-0500 SaO2% (BldA) [Mass fraction] 99 % Candice Graf STRAP BUCKLER MACHINE - MANAGER FEDERAL Work Phone: [facility] 08-04-2023 11:05-0500 Systolic blood pressure 142 mm[Hg] Candice Graf STRAP BUCKLER MACHINE - MANAGER FEDERAL Work Phone: [facility] 04-08-2022 11:11-0400 Body height 168.91 cm Gerry Santana Work Phone: [facility] [place] [address] Work Phone: 04-08-2022 11:11-0400 Body mass index (BMI) [Ratio] 25.44 kg/m2 Gerry Santana Work Phone: [facility] [place] 395 Work Phone: 04-08-2022 11:11-0400 Body surface area Derived from formula 1.83 m2 Gerry Santana Work Phone: [facility] [place] [address] Work Phone: 04-08-2022 11:11-0400 Body temperature 97.3 [degF] Gerry Santana Work Phone: [facility] [place] [address] Work Phone: 04-08-2022 11:11-0400 Body weight 72.58 kg Gerry Santana Work Phone: [facility] [place] [address] Work Phone: 04-08-2022 11:11-0400 Diastolic blood pressure 77 mm[Hg] Gerry Santana Work Phone: [facility] [place] [address] Work Phone: 04-08-2022 11:11-0400 Heart rate 70 /min Gerry Santana Work Phone: [facility] [place] [address] Work Phone: 04-08-2022 11:11-0400 Respiratory rate 15 /min Gerry Santana Work Phone: [facility] [place] [address] Work Phone: 04-08-2022 11:11-0400 Systolic blood pressure 165 mm[Hg] Gerry Santana Work Phone: [facility] [place] [address] Work Phone: 03-25-2021 12:50-0400 Body height 168.91 cm Gerry Santana Work Phone: [facility] [place] Work Phone: 03-25-2021 12:50-0400 Body mass index (BMI) [Ratio] 25.44 kg/m2 Gerry Santana Work Phone: [facility] [place] Work Phone: 03-25-2021 12:50-0400 Body surface area Derived from formula 1.83 m2 Gerry Santana Work Phone: [facility] [place] Work Phone: 03-25-2021 12:50-0400 Body temperature 97.6 [degF] Gerry Santana Work Phone: [facility] [place] Work Phone: 03-25-2021 12:50-0400 Body weight 72.58 kg Gerry Santana Work Phone: [facility] [place] Work Phone: 03-25-2021 12:50-0400 Diastolic blood pressure 92 mm[Hg] Gerry Santana Work Phone: [facility] [place] Work Phone: 03-25-2021 12:50-0400 Heart rate 91 /min Gerry Santana Work Phone: [facility] [place] Work Phone: 03-25-2021 12:50-0400 Systolic blood pressure 181 mm[Hg] Gerry Santana Work Phone: [facility] [place] Work Phone: Encounters Encounter Date Encounter Type Care Provider Facility Start: 09-24-2023 Refill Aly mike MD Work Phone: [facility] Start: 08-04-2023 End: 08-04-2023 ambulatory CANDICE GRAF [facility] Start: 08-04-2023 End: 08-04-2023 Office outpatient visit 25 minutes Candice Graf STRAP BUCKLER MACHINE - MANAGER FEDERAL Work Phone: [facility] Procedures Date Procedure Procedure Detail Performing Clinician Start: 06-24-2022 Mammography Aly chin MD Work Phone: Start: 10-21-2021 Lipid 1996 panel - S ever or Plasma Dee Castorena STRAP BUCKLER MACHINE - MANAGER FEDERAL Work Phone: Operation on gallbladder Ngozi glas Angelina Santana Work Phone: Operation on heart Gerry R Max Work Phone: Sinus Surgery Gerry gonzalez Work Phone: Plan of Treatment Date Care Activity Detail Author Start: 10-21-2026 Lipid panel Lipid Panel [facility] Start: 06-24-2023 Screening for malignant neoplasm of breast Mammogram [facility] Start: 04-28-2023 Influenza vaccination [facility] Start: 02-03-2023 End: 02-03-2023 Patient encounter procedure [facility] Start: 2008 RSV Immunization aged 60 or older (1 - 1-dose 60+ series) RSV Immunization aged 60 or older (1 - 1-dose 60+ series) [facility] Start: 1998 Zoster Vaccines (1 of 2) Zoster Vaccines (1 of 2) [facility] Start: 1988 Screening for malignant neoplasm of breast Mammogram [facility] Start: 1967 DTaP/Tdap/Td Vaccines (1 - Tdap) DTaP/Tdap/Td Vaccines (1 - Tdap) [facility] Start: 1966 Diabetes mellitus screening Diabetes Screening [facility] Start: 1966 Hepatitis C screening Hepatitis C Screening [facility] Start: 1960 Depression Screening Depression Screening [facility] Start: 1955 DTaP/Tdap/Td Vaccines (1 - Tdap) DTaP/Tdap/Td Vaccines (1 - Tdap) [facility] Start: 1954 Pneumococcal Vaccine: 65+ Years (1 - PCV) Pneumococcal Vaccine: 65+ Years (1 - PCV) [facility] Start: 1954 Pneumococcal Vaccine: 65+ Years (1 of 2 - PCV) Pneumococcal Vaccine: 65+ Years (1 of 2 - PCV) [facility] Start: 04-16-1949 COVID-19 Vaccine (#1) COVID-19 Vaccine (#1) [facility] Start: 1948 Hepatitis B Vaccines (1 of 3 - 3-dose series) Hepatitis B Vaccines (1 of 3 - 3-dose series) [facility] Start: 1948 Medicare Advantage Annual Wellness Visit (AWV) Medicare Advantage Annual Wellness Visit (AWV) [facility] Start: 1948 Screening for malignant neoplasm of colon [facility] Start: 1948 Screening for osteoporosis Bone Density Scan [facility] Payers Date Payer Category Payer Medicare [employer] [id number] 2022-Present [address] [place] [address] Medicare HMO [id number] 2022 Medicare [id number] Unknown [employer] Social History Date Type Detail Facility Start: 08-16-2022 End: 08-04-2023 Former smoker Former smoker [facility]Wehwtcns[facility]Tw ro n Work Phone: Tobacco smoking stat [facility] Ex-smoker [facility] History of tobacco use Current smoker [facility] History of tobacco use Cigarette Smoker S [facility] Start: 08-16-2022 End: 08-04-2023 Alcohol intake Current non-drinker of alcohol (finding) [facility] Start: 1950 Sex Assigned At Not on file S [facility] Start: 08-16-2022 End: 08-04-2023 Tobacco use panel [facility] Start: 01-24-2023 End: 02-03-2023 Exposure to SARS-CoV-2 (event) Not sure [facility] Clinical Note 10-18-2023 Note Date & Type Note Facility 10-18-2023 Note Called Wilda at Dr Kristel Hernandez's office and informed her that patient can hold Plavix 5-7 days before the procedure and to have her restart it as soon as possible afterwards. Wilda states their office will inform patient of instructions. [facility] History of Present illness Narrative 08-04-2023 Candice Graf, STRAP BUCKLER MACHINE - MANAGER FEDERAL - 08/04/2023 11:00 AM EST Note Date & Type Note Facility 08-04-2023 History of Presen t illness Narrative Formatting of this note is different fro m the original. [facility] [address] [place] [address] [address] [facility] [address] Dept: [phone] Dept Loc: [phone] Visit type: Established : 1950 Chief Complaint: Chief Complaint Patient presents with 6 Month Follow-up History of Present Illness: Sybil Suero is a 72 y.o. female with a history of coronary artery disease, status post stent to left anterior descending coronary artery in 2004, NSTEMI with another GANGA to LAD and RCA 11/18/21, hypertension, hyperlipidemia, and carotid artery disease S/P [facility] at [facility], who is coming in now for 6 month follow up evaluation. She denies cardiac complaints. Stays active going to [facility] in [place] to exercise. She also walks daily. BP is still a little elevated but better overall compare to prior recordings. Past Medical History: Past Medical History: Diagnosis Date CAD (coronary artery disease) Carotid artery disease without cerebral infarction (HCC) Gastroesophageal reflux Hyperlipidemia Hypertension Non-STEMI (non-ST elevated myocardial infarction) ([facility]/HCC) ([facility]) 11/18/2021 Precordial pain PVD (peripheral vascular disease) ([facility]) Vertigo Past Surgical History Past Surgical History: Procedure Laterality Date CAROTID ARTERY SURGERY (HISTORICAL) 08/05/2020 [facility] CHOLECYSTECTOMY 06/2015 CORONARY ANGIOPLASTY 03/2005 GANGA-LAD [...] Rfl: 3 cholecalciferol (Vitamin D-3) 50 MCG (1999) capsule, Take by mouth., Disp: , Rfl: [...] ( Care everywhere) Last cardiac catheterization: 11/18/21 ([place]) LEFT HEART ASSESSMENT Left Ventricular Ejection Fraction: [...] and Plan: 1. Coronary artery disease involving ute coronary artery of ute heart without angina pectoris 2. Essential hypertension 3. Pure hypercholesterolemia 1. Coronary artery disease: She isstatus post NSTEMI with subsequent stent placement to the mid LAD and proximal RCA in October 2021 at [facility]. Remains active and no decline in her overall functional capacity. -Continue current medication regimen, emphasizing secondary prevention. -Continue efforts at diet and exercise -We would like her to stay on Plavix long-term given her multiple vascular problems 2. Carotid artery disease: She was recently seen by her vascular surgeon at [place], Dr. Carroll, and her carotid Dopplers were [...] I apologize for minor errors in the lead caregiver that may be present. documented in this encounter [facility] Telephone encounter Note 12-12-2022 Telephone Encounter - Tita Ayers - 12/12/2022 9:52 AM EDT Note Date & Type Note Facility 12-12-2022 Telephone encounter Note Form atting of this note might be different from the original. Called patient and scheduled follow up appt with Dr. Tarango on 02-03-23. [facility] Note 12-12-2022 Telephone Encounter - Tita Ayers - 12/12/2022 9:52 AM EDTTelephone Encounter - Tita Ayers - 12/09/2022 2:42 PM EDT Note Date & Type Note Facility 12-12-2022 Miscellaneous Notes Formattin g of this note might be different from the original. Called patient and scheduled follow up appt with Dr. Tarango on 02-03-23. Patient called requesting refill of Amlodipine 10 mg every day, 90 day supply to [facility] in [place]. documented in this encounter [facility] Telephone encounter Note 12-09-2022 Telephone Encounter - Tita Ayers - 12/09/2022 2:42 PM EDT Note Date & Type Note Facility 12-09-2022 Telephone encounter Note Form atting of this note might be different from the original. Patient called requesting refill of Amlodipine 10 mg every day, 90 day supply to [facility] in [place]. [facility] Telephone encounter Note 11-28-2022 Telephone Encounter - Meredith Park RN - 11/28/2022 8:38 AM EDT Note Date & Type Note Facility 11-28-2022 Telephone encounter Note Form atting of this note might be different from the original. Last seen 05/19. [facility] Note 11-28-2022 Telephone Encounter - Meredith Park RN - 11/28/2022 8:38 AM EDT Note Date & Type Note Facility 11-28-2022 Miscellaneous Notes Formattin g of this note might be different from the original. Last seen 05/19. documented in this encounter [facility] History of Present illness Narrative 08-28-2021 [...] originally diagnosed by Dr. Villanueva at the [facility] and referred to [place] [facility]. She has been going there [...] but continues to receive balance therapy at [facility]. [place] a lot of nasal congestion and drainage in January in February of this year but this seems to be improving. She has not had any headaches. She does not use a sinus rinse kit. She does have Flonase which she uses daily.This 71-year-old woman returns to the office for a follow-up visit. She was receiving balance therapy at [place] [facility] and no longer has any dizziness. She [...] with azelastine when she has allergy symptoms. TJ-Qozbvauberklkn-Ussdw [facility] Work Phone: History of Present illness Narrative [...] originally diagnosed by Dr. Villanueva at the [facility] and referred to [place] [facility] therapy. She has been going there [...] but continues to receive balance therapy at [facility]. [place] a lot of nasal congestion and drainage in January in February of this year but this seems to be improving. She has not had any headaches. She does not use a sinus rinse kit. She does have Flonase which she uses daily. WT-Giefmoxijiodlk-Wario Work Phone: Evaluation note Note Date & Type Note Facility documented in this encounter [facility] Summary Purpose Family History No Family History Records FoundUnknown Family Member Name Dates Details Family history [...] Touchworks DATE CREATED AUTHOR AUTHOR'S ORGANIZ ATION 10/25/2023 [facility] Reason for Visit (unrecogniz ed section and content) Reason Onset Date Comments Med Refill 12/09/2022 Reason Comments 6 Month Follow-up Care Teams (unrecognized sec tion and content) Primer Supervisor Relationship Specialty Start Date End Date Gerry Santana [address] [place] [address] PCP - General 05/15/18 Primer Supervisor Relationship Specialty Start Date End Date Gerry Santana [address] [place], [place] [id number] PCP - General 05/15/18 Primer Supervisor Relationship Specialty Start Date End Date Gerry Santana [address] [place], [place] [id number]- PCP - General 05/15/18 Primer Supervisor Relationship Specialty Start Date End Date Gerry Santana [address] [place], [place] [id number] PCP - General 05/15/18 Primer Supervisor Relationship Specialty Start Date End Date Gerry Santana [address] [place], [place] [id number] PCP - General 05/15/18 FOR RECORDS PERTAINING [...] BE BASED ON THE PRIMARY CLINICAL RECORDS. [facility] Occasion [facility]. provides no warranty or guarantee of the accuracy or completeness of information in this document.
== END | disposition home or self-care (01) ==
PROVIDERS: PCP Family Medicine; Referring Provider Surgery; Visit Provider Surgery
DX: I65.22 Occlusion and stenosis of left carotid artery (principal)
CPT/HCPCS: 93880

== ENCOUNTER → 2023-11-22 | Outpatient (CLI) | payer MEDICARE, SELFPAY ==
[2022-09-07 10:28] VITALS: BMI 27.3
--- NOTE | 2023-11-22 15:19 | US_ITS ---
STUDY: THYROID ULTRASOUND REASON FOR EXAM: Female, 73 years old. Left thyroid nodule TECHNIQUE: Ultrasound evaluation of the thyroid was performed with real-time and static andrews-scale imaging. COMPARISON: Comparison is made with prior study of November 29, 2021. FINDINGS: RIGHT LOBE: The right lobe of the thyroid gland is enlarged and measures 5.2 cm x 1.4 cm x 1.1 cm. There is a heterogeneous echotexture. Once again, there are 3 subcentimeter solid/cystic nodules scattered throughout the right lobe of the thyroid. The largest nodule measures 4 mm x 4 mm x 3 mm. LEFT LOBE: The left lobe of the thyroid gland is mildly enlarged and measures 5.1 cm x 1.8 cm x 2.2 cm. There is a heterogeneous echotexture. Once again, there is a dominant solid and cystic nodule measuring 3.1 cm x 1.4 cm x 2 cm. Increased vascularity is seen. This is the midpole. This has increased slightly in size as compared to prior study. Biopsy recommended if not already performed. Stable 1 cm x 0.9 cm x 0.6 cm hypoechoic solid nodule in the superior pole as well as a 1 cm x 0.8 cm x 0.6 cm heterogeneous nodule in the lower pole. ISTHMUS: The isthmus measures 2.6 mm. Benign-appearing 1.3 cm x 0.8 cm x 0.4 cm lymph node in the right cervical region. US/Thyroid IMPRESSION: Essentially stable examination except for slight increase in size of the complex solid and cystic nodule in the left lobe of the thyroid measuring 3.1 cm x 1.4 cm x 2 cm. Electronically Signed: Mo Miller MD at 9:48 EDT ,
== END | disposition home or self-care (01) ==
LOC: US 15:19
PROVIDERS: PCP Family Medicine; Referring Provider Surgery; Visit Provider Surgery
DX: E04.1 Nontoxic single thyroid nodule (principal)
CPT/HCPCS: 76536

== ENCOUNTER → 2024-03-06 | Outpatient (CLI) | payer MEDICARE, SELFPAY ==
[2022-09-07 10:28] VITALS: BMI 27.3
[2024-03-06 09:18] LABS: Absolute Lymphocyte Count 2.66 X10^3/uL (0.83-4.51); Absolute Neutrophil Count 3.1 X10^3/uL (2.0-7.7); Basophil# 0.09 X10^3/uL; Basophil% 1.2 % (0-1); Eosinophil# 0.41 X10^3/uL; Eosinophils% 5.5 % (0-5); Hematocrit 42.6 % (37-47); Hemoglobin 13.6 g/dL (12.0-15.0); Lymphocyte # 2.66 X10^3/ul (0.83-4.51); Lymphocyte % 35.5 % (19-41); Mean Corp Hgb Conc 31.9 g/dL (32-36); Mean Corpuscular Hgb 31.5 pg (27.0-32.0); Mean Corpuscular Volume 98.6 fL (81-99); Mean Platelet Vol. 9.7 fl (6.2-12.0); Monocyte# 1.25 X10^3/uL; Monocyte% 16.7 % (0-10); NRBC Flagged by Analyzer 0 % (0-5); Neutrophil # 3.06 X10^3/uL (2.7-7.7); Neutrophil % 40.8 % (47-70); Platelet Count 405 K/mm3 (150-450); RBC Distribution Width CV 13.2 % (11.6-14.6); RBC Distribution Width SD 47.9 fl (35.1-43.9); Red Blood Count 4.32 M/mm3 (4.2-5.4); White Blood Count 7.5 K/mm3 (4.4-11.0)
[2024-03-06 09:49] LABS: ALB/GLOB Ratio 1.1 RATIO (0.9-2.4); AST(SGOT) 14 U/L (15-37); Alanine Aminotransfer ALT/SGPT 22 U/L (13-56); Albumin, Serum 3.9 g/dL (3.2-5.0); Alkaline Phosphatase 112 U/L (45-117); Anion Gap 2 (5-15); BUN 12 mg/dL (7-18); BUN/Creat Ratio 12.1 RATIO (10-20); Calcium,Total 9.9 mg/dL (8.5-10.1); Chloride 107 mmol/L (98-107); Cholesterol 191 mg/dL (200); Creatinine, Serum 0.99 mg/dL (0.55-1.02); EST Glomerular Filtration Rate 58 mL/min (>60); Est Glom Filt Rate - Afr Amer 70 mL/min (>60); Globulin 3.4 g/dL (2.2-4.2); Glucose 94 mg/dL (74-106); High Density Lipoprotein 69 mg/dL; Potassium 4.1 mmol/L (3.5-5.1); Protein, Total 7.3 g/dL (6.4-8.2); Sodium Level 140 mmol/L (136-145); Triglycerides 117 mg/dL; Very Low Density Lipoprotein 23 mg/dL (5-40)
== END | disposition home or self-care (01) ==
LOC: LAB 08:13
PROVIDERS: PCP Family Medicine
DX: I25.10 Atherosclerotic heart disease of native coronary artery without angina pectoris (principal)
CPT/HCPCS: 36415; 80053; 80061; 85025

== ENCOUNTER → 2024-10-02 | Outpatient (CLI) | payer MEDICARE, SELFPAY ==
[2022-09-07 10:28] VITALS: BMI 27.3
--- NOTE | 2024-10-02 12:19 | US_ITS ---
PROCEDURE: ULTRASOUND THYROID REASON FOR EXAM: NODULES. TECHNIQUE: REAL-TIME GRAYSCALE AND COLOR-FLOW IMAGING WAS PERFORMED ALONG WITH ROUTINE IMAGE DOCUMENTATION. COMPARISON: ULTRASOUND THYROID DATED 11/22/2023. FINDINGS: Right thyroid lobe measures 4.6 x 1.3 x 1.8 cm. Left thyroid lobe measures 5.0 x 1.8 x 2.2 cm. Isthmus thickness is 0.4 cm. Thyroid Size: Normal Background Echotexture: Homogeneous Thyroid Nodules: Bilateral. RIGHT Superior pole, cystic, 0.5 x 0.3 x 0.3 cm, wider than tall, TR 1. Medial midpole, predominantly cystic, 0.7 x 0.7 x 0.2 cm, wider than tall, well- circumscribed, primarily anechoic, TR 1. LEFT Superior pole, mixed cystic and solid, 1.0 x 0.8 x 0.6 cm, hypoechoic, wider than tall, no calcification, TR 4. Midpole, predominantly solid, 2.2 x 1.7 x 1.4 cm, well-circumscribed, mildly hypoechoic, wider than tall, no calcification, TR 4. Inferior pole, mixed cystic and solid, 0.6 x 0.7 x 0.5 cm, well-circumscribed, wider than tall, no calcification, TR 2. US/Thyroid IMPRESSION: 1. Benign micro nodules in the right thyroid lobe, TR 1 category. No FNA adilia anted. 2. TR 4 category solid nodule in the left midpole, previously documented. FNA tissue sampling warranted if indicated. 3. TR 4 nodule in the left superior pole. No FNA warranted. 4. TR 2 nodule in the left inferior pole. No FNA warranted. 5. 12 month follow-up ultrasound for surveillance. Reading Location: [facility]
== END | disposition home or self-care (01) ==
LOC: US 12:17
PROVIDERS: PCP Family Medicine; Referring Provider Surgery; Visit Provider Surgery
DX: E04.1 Nontoxic single thyroid nodule (principal)
CPT/HCPCS: 76536

== ENCOUNTER 2024-10-06 10:35 | Emergency (ER) | payer MEDICARE, SELFPAY ==
[2022-09-07 10:28] VITALS: BMI 27.3
[2024-10-06 10:37] VITALS: BP 162/78; PULSE 79; RESP 16; TEMP 35.9; O2SAT 98; BMI 27.6
--- NOTE | 2024-10-06 11:15 | EX.ED.UPPERE ---
HPI History of Present Illness HPI Narrative: 73-year-old female history of CAD with stents. States she has been doing a lot of cleaning at home and exercise and has discomfort in her left upper back around her shoulder blade. Denies any chest pain or shortness of breath. Denies any recent illness. Denies any falls or trauma. She is right-hand dominant. Chief Complaint: Upper Extremity Injury Informant: patient Occured/Mechanism Mechanism/Context: No injury and No blunt trauma Onset/Context/Timing Onset: Weeks (Over the last week.) Context: Gradual Onset Timing: Continuous Quality of Pain: Dull and Aching Current Severity: Mild Maximum Severity: Mild Associated Symptoms Associated Symptoms: Negative for Parasthesia, Weakness or Loss of Funtion Narrative Narrative: 73-year-old female history of CAD with stents do a lot of cleaning of her home and exercise and thinks that she strained the muscles of her upper back around her left posterior shoulder blade. She denies any fall or injury. She denies any chest pain or shortness of breath. She denies any recent illness. Worse with movement. She has used Tylenol and ibuprofen at home and done other things without relief. She had a similar episode like this before where she received Kenalog and Toradol and said she became better very quickly. Prior similar symptoms: Yes Recent Illness/Hospitalization: No PFSH PFSH Medical History Presence of tooth-root and mandibular implants Myocardial infarction Hyperlipidemia Atherosclerotic heart disease of [place] coronary artery without angina pectoris Essential hypertension Former smoker Carotid stenosis, bilateral Cutaneous skin tags Seborrheic keratosis Vertigo Gastrointestinal complaints Home Medications ?Medication ?Instructions ?Recorded ?Last Taken ?Type amlodipine 10 mg tablet 10 mg PO DAILY bp 09/12/18 11/11/21 History simvastatin 40 mg tablet 40 mg PO QHS cholesterol 09/12/18 11/10/21 History aspirin 81 mg tablet,delayed 81 mg PO DAILY heart 07/31/20 11/10/21 History release cholecalciferol (vitamin D3) 50 50 mcg PO BID SUPPLEMENT 11/11/21 11/11/21 History mcg (2,000 unit) capsule fluticasone propionate 50 2 spray intranasal DAILY PRN Sinus 11/11/21 Unknown History mcg/actuation nasal Symptoms spray,suspension carvedilol 3.125 mg tablet 3.125 mg PO BID #60 tabs 11/13/21 Unknown Rx clopidogrel 75 mg tablet (Plavix) 75 mg PO DAILY 03/21/22 Unknown History hydralazine 10 mg tablet 10 mg PO BID 03/21/22 Unknown History rabeprazole 20 mg tablet,delayed See Rx Instructions .Route 08/25/23 Unknown Rx release .COMPLEX #270 tabs Allergy/AdvReac Type Severity Reaction Status Date / Time hydrochlorothiazide Allergy Severe Blood Verified 10/06/24 10:36 Pressure Sporadic Family History Mother Cancer Brother Cancer Surgical History S/P cataract extraction History of carotid endarterectomy (07/2020) History of sinus surgery History of cholecystectomy History of coronary artery stent placement (11/12/21) Social History Smoking Status: Former smoker alcohol intake: never substance use type: does not use what type of physical activity do you participate in: walking frequency: daily ROS ROS ED ROS Narrative Denies recent illness. Constitutional Constitutional ED: Denies chills or fever(s) Eyes Eyes: Denies blurry vision ENT ENT ED: Denies ear pain or rhinorrhea Cardiovascular Cardiovascular: Denies chest pain Respiratory/Chest Respiratory/Chest: Denies cough or dyspnea Gastrointestinal Gastrointestinal: Denies abdominal pain Genitourinary Genitourinary ED: Denies dysuria or hematuria Musculoskeletal Musculoskeletal: Denies back pain or myalgias Integumentary Denies abscess or Abrasions Neurologic Neurologic: Denies headache(s) Psychiatric Psychiatric: Denies anxiety or depression Endocrine Endocrinology: Denies cold intolerance Hematologic/Lymphatic Hematologic/Lymphatic: Denies easy bleeding, easy bruising or lymphadenopathy Allergic/Immunologic Allergic/Immunologic ED: Denies mouth swelling, tongue swelling or urticaria EXAM Physical Exam Narrative Exam Narrative: 73-year-old female vital signs stable afebrile. No acute distress. H EENT pupils round reactive light. No droop. Moist mucous membranes. Patient's sitting upright in bed 's bedside. Resting comfortably. Neck nontender no lymphadenopathy. No muscular tenderness of the neck. Lungs clear to auscultation bilaterally. Heart regular rhythm rate about 80 no murmur. Chest wall ribs nontender. Abdomen soft nontender. Moving all 4 extremities. Nontender no edema. 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 Normal dorsi plantarflexion. Back she has discomfort around her left shoulder blade on the medial aspect. There is no redness or warmth. No discoloration. No signs of trauma. She has full range of motion of both shoulders and arms. She can lift both arms above her head without difficulty. There is no redness or swelling to either shoulder or any shoulder tenderness. Neurologically she is awake and alert no focal motor deficits. Skin is unremarkable. No rashes or discoloration. Const Vital Signs: 10/06/24 10:37 Temperature 96.6 F L Temperature Source Temporal Pulse Rate 79 Respiratory Rate 16 Blood Pressure 162/78 H Blood Pressure Mean 106 Pulse Ox 98 Oxygen Delivery Method Room Air Positive well nourished and well developed; Negative for cachectic, contractures or unkempt General Appearance ED: well developed and NAD; Negative for unkempt, cachectic, contractures, cyanotic or diaphoretic Nutritional Appearance: Negative for cachectic HEENT Reports moist mucous membranes normocephalic and atraumatic; Negative for trauma or tenderness Eyes PERRL and EOMs intact bilaterally Neck full ROM and supple General: Negative for tenderness Chest Wall inspection of chest normal and palpation of chest normal Resp normal respiratory effort and clear to auscultation bilaterally Auscultation: Negative for rales, rhonchi or wheezes Cardio regular rate, regular rhythm, S1 normal heart sound, S2 normal heart sound and no murmurs Rate: Negative for bradycardia or tachycardic Rhythm: Negative for abnormal rhythm GI non-tender, non-distended and no masses Palpation: soft; Negative for tender, guarding or rebound tenderness present Back/Spine no CVA tenderness General Back: Negative for CVA tenderness Cervical Spine: Negative for cervical spine tenderness Thoracic Spine / Upper Back: Negative for thoracic spinal tenderness Lumbar Spine / Lower Back: Negative for lumbar spinal tenderness Extremity normal to inspection and full ROM General Extremety ED: Negative for edema or other findings General Extremity: Negative for edema or other findings Neuro oriented x3, CN's II-XII intact bilaterally, moves all extremities, no focal motor deficits and no sensory deficits noted Sensorium / Orientation: alert, oriented to person, oriented to place and oriented to time; Negative for orientation impaired, lethargic or stuporous Motor Exam: strength 5/5 throughout Psych mental status grossly normal Appearance: Negative for unkempt Attitude: No agitated Mood & Affect: Negative for depressed, anxious or tearful Skin General Skin Exam: Negative for petechiae Lesions: no lesions Rashes: no rashes Trauma: no lacerations or abrasions; Negative for abrasion, laceration or puncture MDM MDM MDM Narrative Medical decision making narrative: 73-year-old female with soreness around her left shoulder blade from overuse recently with exercise and cleaning. In the past she received IM injection of Kenalog and Toradol and said it gave her significant relief. Patient will be given an IM injection of 30 of Toradol and 40 of Kenalog and discharged home. Otherwise exam is completely benign. I did review her old charts and 2 years ago in February 2023 she did receive a similar injection. Discharge Plan Triage Chief Complaint: Upper Extremity Injury ED Provider: Dany Solis Dx/Rx/DC Orders Clinical Impression: Strain of back Instructions: ED Back Sprain/Strain Prescriptions: No Action amlodipine 10 mg tablet 10 mg PO DAILY simvastatin 40 mg tablet 40 mg PO QHS clopidogrel [Plavix] 75 mg tablet 75 mg PO DAILY hydralazine 10 mg tablet 10 mg PO BID aspirin 81 MG tablet,delayed release (DR/EC) 81 mg PO DAILY fluticasone propionate 50 mcg/actuation spray,suspension 2 spray INTRANASAL DAILY PRN (Reason: Sinus Symptoms) Patient Comments: SHAKE LIQUID AND USE 2 sprays into each nostril once daily cholecalciferol (vitamin D3) 50 mcg (2,000 unit) Capsule 50 mcg PO BID Patient Comments: PT STATES TAKES ONE CAPSULE IN THE AM AND ONE AT LUNCH. carvedilol 3.125 mg Tablet 3.125 mg PO BID Qty: 60 0RF rabeprazole 20 mg tablet,delayed release (DR/EC) See Rx Instructions .ROUTE .COMPLEX Qty: 270 1RF Dose Instruction: take 1 tablet by mouth once daily Rx Instructions: take 1 tablet by mouth once daily Primary Care Provider: Tong Santana Referrals: Tong Santana, DO [Primary Care Provider] - 3-5 Days if not improving Activity Restrictions/Additional Instructions: Hot shower, warm bath massage and whirlpool. Alternate Tylenol Motrin for pain. Follow-up if not improving. Print Language: Faroese
[2024-10-06] MEDS: Ketorolac 30 MG/ML Syringe IM (11:25)
[2024-10-06] MEDS: Triamcinolone Acetonide 40 MG/ML Vial IM (11:27)
== END 2024-10-06 11:46 | disposition home or self-care (01) ==
PROVIDERS: Emergency Provider Emergency Medicine; PCP Family Medicine; Visit Provider Emergency Medicine
DX: S39.012A Strain of muscle, fascia and tendon of lower back, initial encounter (principal); I25.10 Atherosclerotic heart disease of native coronary artery without angina pectoris; E78.5 Hyperlipidemia, unspecified; Z87.891 Personal history of nicotine dependence; I10 Essential (primary) hypertension; Z95.5 Presence of coronary angioplasty implant and graft; I25.2 Old myocardial infarction; Z90.49 Acquired absence of other specified parts of digestive tract; X50.1XXA Overexertion from prolonged static or awkward postures, initial encounter; Y93.A3 Activity, aerobic and step exercise; Y92.89 Other specified places as the place of occurrence of the external cause
CPT/HCPCS: 96372; 99282

== ENCOUNTER 2024-10-25 16:15 | Inpatient (IN) | payer MEDICARE, SELFPAY ==
[2022-09-07 10:28] VITALS: BMI 27.3
[2024-10-25] VITALS (17 sets, daily range): BP systolic 144–178; BP diastolic 69–93; PULSE 85–115; RESP 13–22; TEMP 36.1–37.1; O2SAT 95–98; BMI 27.2; BMI 22.6
--- NOTE | 2024-10-25 16:26 | EDS_ITS ---
HPI History of Present Illness Chief Complaint: Weakness [facility] Medical History Presence of tooth-root and mandibular implants Myocardial infarction Hyperlipidemia Atherosclerotic heart disease of [place] coronary artery without angina pectoris Essential hypertension Former smoker Carotid stenosis, bilateral Cutaneous skin tags Seborrheic keratosis Vertigo Gastrointestinal complaints Home Medications ?Medication ?Instructions ?Recorded ?Last Taken ?Type amlodipine 10 mg tablet 10 mg PO DAILY bp 09/12/18 0 11/11/21 History simvastatin 40 mg tablet 40 mg PO QHS cholesterol 11/10/21 History aspirin 81 mg tablet,delayed 81 mg PO DAILY heart 12/1511/10/21 History release cholecalciferol (vitamin D3) 50 50 mcg PO BID SUPPLEME NT 11/11/21 11/11/21 History mcg (2,000 unit) capsule fluticasone propionate 50 2 spray intranasal DAILY PRN Sinus 11/11/21 Unknown History mcg/actuation nasal Symptoms spray,suspension carvedilol 3.125 mg tablet 3.125 mg PO BID #60 tabs Unknown Rx clopidogrel 75 mg tablet (Plavix) 75 mg PO DAILY 03/21 Unknown History hydralazine 10 mg tablet 10 mg PO BID 03/21/22 Unknow n History Allergy/AdvReac Type Severity Reaction Status Date / Time hydrochlorothiazide Allergy Severe Blood Verified 10/16/24 10:26 Pressure Sporadic Family History Mother Cancer Brother Cancer Surgical History S/P cataract extraction History of carotid endarterectomy (07/2020) History of sinus surgery History of cholecystectomy History of coronary artery stent placement (11/12/21) Social History Smoking Status: Former smoker alcohol intake: never substance use type: does not use what type of physical activity do you participate in: walking frequency: daily EXAM Physical Exam Const Vital Signs: 10/25/24 16:16 Temperature 97 F L Temperature Source Temporal Pulse Rate 98 Respiratory Rate 16 Blood Pressure 160/73 H Blood Pressure Mean 102 Pulse Ox 95 Oxygen Delivery Method Room Air MDM MDM MDM Narrative Medical decision making narrative: HISTORY OF PRESENT ILLNESS: 74-year-old female presents with concern for increased weakness today. She notes her last known well was 930 am on 10/25/2024 . She states she went to physical therapy today. She complains of left arm heaviness and numbness. She also notes trouble walking and nausea. She further states she has not experienced any head trauma. Notes symptoms are constant, stable and not worsening. Denies any slurred speech, facial drooping, does note some issues with coordination. Denies chest pain or shortness of breath. Denies vomiting or diarrhea REVIEW OF SYSTEMS: Pertinent positives: Left arm weakness, nausea Pertinent negatives: [] PHYSICAL EXAM: Nursing triage notes reviewed, Vital signs reviewed Constitutional: please see mdm HENT: MMM Eyes: Pupils equal round and reactive to light, Extraocular muscles intact Neck: No stridor, no JVD, full neck ROM Lungs: Clear to auscultation, No wheezing or rales. No increased work of breathing, no conversational dyspnea, no accessory muscle use, no nasal flaring. No respiratory distress noted Heart: Regular rate and rhythm, No murmurs, No rubs and No gallops, 2+ distal pulses (radial, femoral, posterior tibial) in all extremities Abdomen: Soft, there is no tenderness, rigidity, rebound or guarding, no obvious peritoneal signs, no palpable pulsatile abdominal masses, no auscultated abdominal bruit : No CVAT Extremities: No edema Neuro: Alert and oriented x3, neuro exam at baseline, cranial nerves II through XII are intact. No pain with extraocular muscle movement. There is negative test of skew. 5 of 5 strength in upper and lower extremities in flexion extension. Intact sensation to light touch in upper and lower extremity dermatomes. No truncal or extremity ataxia. No dysdiadochokinesia. Normal gait. 2+ reflexes in upper and lower extremities. No meningeal signs. Negative Babinski. NIH of 0. Skin: No rash or lesions noted MEDICAL DECISION MAKING: Chief Complaint: Left arm weakness External records reviewed: Reviewed MRI from 2019. MRI of the brain from 2019 showed no acute infarct. 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 Initial neurologic exam was intact with NIH of 0. No obvious focal deficits although the patient scribes objective weakness to left upper extremity. I considered the following differential diagnosis: ICH, mass, large vessel occlusion, acute CVA, TIA ALL IMAGES (IF OBTAINED) HAVE BEEN PERSONALLY REVIEWED AND INTERPRETED BY MYSELF. EKG with normal sinus rhythm rate of 96, left axis deviation, normal intervals, no The patient and/or family, caregivers express understanding. The patient and/or family, caregivers agrees with the plan. Shared decision making: I will have a discussion with the patient and or visitors regarding risk/benefits of further testing or admission. They will be made aware of of the risk/benefits inherent in this decision they will be given the opportunity to voice understanding. Total critical care time today provided was at least 0 [] minutes. This excludes separately billable procedures. Critical care time (if documented) is secondary to the patient having high probability of clinically significant/life threatening deterioration in the patient's condition which required my urgent intervention. Impression: [] Dispo: [] This note was generated with [employer] dictation software. It may contain incorrect words, spelling, and punctuation that were not noted in review of the chart prior to signing. Discharge Plan Triage Chief Complaint: Weakness ED Provider: Clem Hinton Dx/Rx/DC Orders Prescriptions: No Action amlodipine 10 mg tablet 10 mg PO DAILY simvastatin 40 mg tablet 40 mg PO QHS clopidogrel [Plavix] 75 mg tablet 75 mg PO DAILY Patient Comments: has not been taking for approx. 3-4 days d/t procedure. just took one today d/t symptoms 10/25/24 hydralazine 10 mg tablet 10 mg PO BID aspirin 81 MG tablet,delayed release (DR/EC) 81 mg PO DAILY fluticasone propionate 50 mcg/actuation spray,suspension 2 spray INTRANASAL DAILY PRN (Reason: Sinus Symptoms) Patient Comments: SHAKE LIQUID AND USE 2 sprays into each nostril once daily cholecalciferol (vitamin D3) 50 mcg (2,000 unit) Capsule 50 mcg PO BID Patient Comments: PT STATES TAKES ONE CAPSULE IN THE AM AND ONE AT LUNCH. carvedilol 3.125 mg Tablet 3.125 mg PO BID Qty: 60 0RF Primary Care Provider: Tong Santana Referrals: Tong Santana, DO [Primary Care Provider] - Print Language: [place]
--- NOTE | 2024-10-25 16:26 | EX.ED.DYSGE1 ---
HPI History of Present Illness Chief Complaint: Weakness [facility] Medical History Presence of tooth-root and mandibular implants Myocardial infarction Hyperlipidemia Atherosclerotic heart disease of [place] coronary artery without angina pectoris Essential hypertension Former smoker Carotid stenosis, bilateral Cutaneous skin tags Seborrheic keratosis Vertigo Gastrointestinal complaints Home Medications ?Medication ?Instructions ?Recorded ?Last Taken ?Type amlodipine 10 mg tablet 10 mg PO DAILY bp 09/12/18 11/11/21 History simvastatin 40 mg tablet 40 mg PO QHS cholesterol 09/12/18 11/10/21 History aspirin 81 mg tablet,delayed 81 mg PO DAILY heart 07/31/20 11/10/21 History release cholecalciferol (vitamin D3) 50 50 mcg PO BID SUPPLEMENT 11/11/21 11/11/21 History mcg (2,000 unit) capsule fluticasone propionate 50 2 spray intranasal DAILY PRN Sinus 11/11/21 Unknown History mcg/actuation nasal Symptoms spray,suspension carvedilol 3.125 mg tablet 3.125 mg PO BID #60 tabs 11/13/21 Unknown Rx clopidogrel 75 mg tablet (Plavix) 75 mg PO DAILY 03/21/22 Unknown History hydralazine 10 mg tablet 10 mg PO BID 03/21/22 Unknown History Allergy/AdvReac Type Severity Reaction Status Date / Time hydrochlorothiazide Allergy Severe Blood Verified 10/16/24 10:26 Pressure Sporadic Family History Mother Cancer Brother Cancer Surgical History S/P cataract extraction History of carotid endarterectomy (07/2020) History of sinus surgery History of cholecystectomy History of coronary artery stent placement (11/12/21) Social History Smoking Status: Former smoker alcohol intake: never substance use type: does not use what type of physical activity do you participate in: walking frequency: daily EXAM Physical Exam Const Vital Signs: 10/25/24 16:16 10/25/24 16:43 10/25/24 16:46 Temperature 97 F L Temperature Source Temporal Pulse Rate 98 Respiratory Rate 16 Respiratory Effort Normal Respiratory Pattern Normal Blood Pressure 160/73 H Blood Pressure Mean 102 Pulse Ox 95 Oxygen Delivery Method Room Air Room Air 10/25/24 16:59 10/25/24 17:00 10/25/24 17:15 Temperature Temperature Source Pulse Rate 107 H 100 97 Respiratory Rate 19 H 22 H 20 H Respiratory Effort Respiratory Pattern Blood Pressure 147/69 H 146/78 H Blood Pressure Mean 91 95 Pulse Ox 95 Oxygen Delivery Method Room Air 10/25/24 17:40 10/25/24 17:43 10/25/24 17:45 Temperature Temperature Source Pulse Rate 103 H 115 H Respiratory Rate 19 H 13 Respiratory Effort Respiratory Pattern Blood Pressure 178/86 H 170/80 H Blood Pressure Mean 113 105 Pulse Ox Oxygen Delivery Method 10/25/24 18:00 10/25/24 18:15 10/25/24 18:30 Temperature 98 F Temperature Source Pulse Rate 96 99 96 Respiratory Rate 17 15 17 Respiratory Effort Respiratory Pattern Blood Pressure 144/80 H 156/78 H 159/79 H Blood Pressure Mean 98 99 105 Pulse Ox 97 96 Oxygen Delivery Method Room Air 10/25/24 18:30 10/25/24 18:48 10/25/24 18:56 Temperature Temperature Source Pulse Rate 98 115 H 99 Respiratory Rate 14 22 H 16 Respiratory Effort Respiratory Pattern Blood Pressure 159/79 H 163/80 H Blood Pressure Mean 98 102 Pulse Ox 97 95 Oxygen Delivery Method Room Air Room Air 10/25/24 19:00 Temperature Temperature Source Pulse Rate 102 H Respiratory Rate 16 Respiratory Effort Respiratory Pattern Blood Pressure Blood Pressure Mean Pulse Ox Oxygen Delivery Method MDM MDM MDM Narrative Medical decision making narrative: HISTORY OF PRESENT ILLNESS: 74-year-old female presents with concern for increased weakness today. She notes her last known well was 930 am on 10/25/2024 . She states she went to physical therapy today. She complains of left arm heaviness and numbness. She also notes trouble walking and nausea. She further states she has not experienced any head trauma. Notes symptoms are constant, stable and not worsening. She endorses a history of several months of a pinched nerve in her left neck/trapezius area. Notes she has been in physical therapy for this and doing exercise which have improved her symptoms. She notes today she felt more weakness in LUE which is new. Denies any slurred speech, facial drooping, does note some issues with coordination. Denies chest pain or shortness of breath. Denies vomiting or diarrhea REVIEW OF SYSTEMS: Pertinent positives: Left arm weakness, nausea Pertinent negatives: Chest pain, syncope PHYSICAL EXAM: Nursing triage notes reviewed, Vital signs reviewed Constitutional: please see mdm HENT: MMM Eyes: Pupils equal round and reactive to light, Extraocular muscles intact Neck: No stridor, no JVD, full neck ROM Lungs: Clear to auscultation, No wheezing or rales. No increased work of breathing, no conversational dyspnea, no accessory muscle use, no nasal flaring. No respiratory distress noted Heart: Regular rate and rhythm, No murmurs, No rubs and No gallops, 2+ distal pulses (radial, femoral, posterior tibial) in all extremities Abdomen: Soft, there is no tenderness, rigidity, rebound or guarding, no obvious peritoneal signs, no palpable pulsatile abdominal masses, no auscultated abdominal bruit : No CVAT Extremities: No edema Neuro: Alert and oriented x3, neuro exam at baseline, cranial nerves II through XII are intact. No pain with extraocular muscle movement. There is negative test of skew. 5 of 5 strength in upper and lower extremities in flexion extension. Intact sensation to light touch in upper and lower extremity dermatomes. No truncal or extremity ataxia. No dysdiadochokinesia. Normal gait. 2+ reflexes in upper and lower extremities. No meningeal signs. Negative Babinski. NIH of 0. Skin: No rash or lesions noted MEDICAL DECISION MAKING: Chief Complaint: Left arm weakness External records reviewed: Reviewed MRI from 2019. MRI of the brain from 2019 showed no acute infarct. Noted to chronic left frontal infarct Factors affecting care: Hyperlipidemia, hypertension, CAD status post stent placed in 2021, no blood thinners noted Social determinants of health: none History obtained from others: the patient's Consults: Internal medicine (Dr. Gross)?recommended admission [facility] Narrative: The patient was initially hypertensive with a blood pressure 160/73 otherwise afebrile and nontoxic-appearing. Initial neurologic exam was intact with NIH of 0. No obvious focal deficits although the patient scribes objective weakness to left upper extremity. I considered the following differential diagnosis: ICH, mass, large vessel occlusion, acute CVA, TIA ALL IMAGES (IF OBTAINED) HAVE BEEN PERSONALLY REVIEWED AND INTERPRETED BY MYSELF. EKG with normal sinus rhythm rate of 96, left axis deviation, normal intervals, no STEMI Noncon CT, CTA head and neck shows no evidence of ICH or large vessel occlusion CBC with leukocytosis suggestive of systemic inflammation, no anemia or thrombocytopenia No coagulopathy BMP without evidence of significant electrolyte abnormalities, no anion gap, no acute kidney injury. I have personally reviewed the patient's chest x-ray. Chest x-ray is unremarkable for pulmonary edema, pneumothorax, pneumonia or focal cardiopulmonary abnormality. Had a shared decision-making discussion with the patient and . Offered admission. They agreed with admission for retractor modification, neurologic consultation and prompt MRI. The patient and/or family, caregivers express understanding. The patient and/or family, caregivers agrees with the plan. Shared decision making: I will have a discussion with the patient and or visitors regarding risk/benefits of further testing or admission. They will be made aware of of the risk/benefits inherent in this decision they will be given the opportunity to voice understanding. Total critical care time today provided was at least 0 minutes. This excludes separately billable procedures. Critical care time (if documented) is secondary to the patient having high probability of clinically significant/life threatening deterioration in the patient's condition which required my urgent intervention. Impression: 1. Left arm weakness 2. History of hyperlipidemia 3. History of CVA Dispo: Admit to PCU This note was generated with [employer] dictation software. It may contain incorrect words, spelling, and punctuation that were not noted in review of the chart prior to signing. Lab Data Labs: Laboratory Results - last 24 hr 10/25/24 16:52 WBC 15.0 H RBC 4.81 Hgb 15.0 Hct 45.6 MCV 94.8 MCH 31.2 MCHC 32.9 RDW Std Deviation 45.1 H RDW Coeff of Rolanda 13.1 Plt Count 485 H MPV 9.6 Immature Gran % (Auto) 0.600 Neut % (Auto) 65.0 Lymph % (Auto) 20.5 [place] % (Auto) 12.3 H Eos % (Auto) 1.1 Baso % (Auto) 0.5 Absolute Neuts (auto) 9.7 H Absolute Lymphs (auto) 3.07 Nucleated RBC % 0 Diff Path Review May foll Reactive Lymphocytes 1+ Platelet Estimate SLT INC PT 12.9 INR 1.0 APTT 29.5 Sodium 144 Potassium 4.1 Chloride Direct 105 Carbon Dioxide 27.1 Anion Gap 12 BUN 13 Creatinine 0.80 Estim Creat Clear Calc 59.05 Est GFR (MDRD) Non-Af 77 BUN/Creatinine Ratio 16.2 Glucose 92 Calcium 10.5 Radiography Diagnostic Testing: Clinical Impression(s) from Imaging Studies Chest X-Ray 10/25/24 17:00 IMPRESSION: NEGATIVE CHEST. Reading Location: [facility] Brain CT 10/25/24 17:05 IMPRESSION: 1. No acute intracranial abnormality. 2. Age-appropriate volume loss and remote small vessel ischemic changes. 3. Mild chronic maxillary sinusitis Reading Location: [facility] Head/Neck CTA 10/25/24 17:05 IMPRESSION: 1. No acute vessel occlusion, aneurysm or vascular malformation. 2. Mixed protruding plaque within the inferolateral aortic arch and proximal descending thoracic aorta. Cardiology consultation recommended. 3. At least 70% stenosis of the right, and 50% stenosis of the left internal carotid arteries by NASCET criteria. One or more dose reduction techniques were used (e.g., Automated exposure control, adjustment of the mA and/or kV according to patient size, use of iterative reconstruction technique). Reading Location: [facility] Discharge Plan Triage Chief Complaint: Weakness ED Provider: Clem Hinton Dx/Rx/DC Orders Prescriptions: No Action amlodipine 10 mg tablet 10 mg PO DAILY simvastatin 40 mg tablet 40 mg PO QHS clopidogrel [Plavix] 75 mg tablet 75 mg PO DAILY Patient Comments: has not been taking for approx. 3-4 days d/t procedure. just took one today d/t symptoms 10/25/24 hydralazine 10 mg tablet 10 mg PO BID aspirin 81 MG tablet,delayed release (DR/EC) 81 mg PO DAILY fluticasone propionate 50 mcg/actuation spray,suspension 2 spray INTRANASAL DAILY PRN (Reason: Sinus Symptoms) Patient Comments: SHAKE LIQUID AND USE 2 sprays into each nostril once daily cholecalciferol (vitamin D3) 50 mcg (2,000 unit) Capsule 50 mcg PO BID carvedilol 3.125 mg Tablet 3.125 mg PO BID Qty: 60 0RF Primary Care Provider: Tong Santana Referrals: Tong Santana, DO [Primary Care Provider] - Print Language: Arabic
--- NOTE | 2024-10-25 16:40 | EKG12_ITS ---
Test Reason : Blood Pressure : */* mmHG Vent. Rate : 96 BPM Atrial Rate : 96 BPM P-R Int : 182 ms QRS Dur : 92 ms QT Int : 346 ms P-R-T Axes : 55 -36 71 degrees QTcB Int : 437 ms Normal sinus rhythm Left axis deviation Minimal voltage criteria for LVH, may be normal variant ( Hemet product ) Abnormal ECG Confirmed by Mike Whiting ([id number]), editor farm journal LAURA GOOD ([id number]) on 10/28/2024 10:50:46 AM Referred By: Dominic Gross Confirmed By: Mike Whiting
--- NOTE | 2024-10-25 17:00 | RAD_ITS ---
PROCEDURE: CHEST 1 VIEW REASON FOR EXAM: 74-year-old female, neuro deficit, concern for acute stroke. TECHNIQUE: Frontal view of the chest. COMPARISON: Chest radiograph 11/11/2021. FINDINGS: The heart size is normal. Calcification of the thoracic aorta. Calcified granulomas. No focal consolidation, pleural effusion or pneumothorax. Degenerative changes are identified within the thoracic spine. RAD/Chest 1 View IMPRESSION: NEGATIVE CHEST. Reading Location: [id number]
--- NOTE | 2024-10-25 17:05 | CT_ITS ---
EXAM: BRAIN/HEAD WITHOUT CONTRAST CLINICAL HISTORY: Left arm weakness COMPARISON: None. TECHNIQUE: Noncontrast images of the head with multiplanar reconstructions. Dose reduction techniques were used including intermediate exposure control (AEC),iterative reconstruction technique, and/or mA and/or KV dose adjustments based on patient's size. FINDINGS: CT HEAD FINDINGS: No acute intracranial hemorrhage, mass, mass effect, midline shift or pathologic extra-axial fluid collection. Nonspecific periventricular white matter changes are noted. No hydrocephalus. Age- appropriate cerebral volume and white matter. Visualized mild thickening of the bilateral maxillary sinuses. The calvarium is grossly intact. CT/Brain/Head without Contrast IMPRESSION: 1. No acute intracranial abnormality. 2. Age-appropriate volume loss and remote small vessel ischemic changes. 3. Mild chronic maxillary sinusitis Reading Location: [facility]
--- NOTE | 2024-10-25 17:05 | CT_ITS ---
PROCEDURE: CTA HEAD AND NECK W/ CONTRAST REASON FOR EXAM: 74-year-old female, left arm weakness. TECHNIQUE: CTA imaging of the head and neck from the aortic arch to the skull vertex with intravenous contrast. 3D reconstructions. CONTRAST: [id number] COMPARISON: Same-day CT head. FINDINGS: Mixed calcified and noncalcified protruding plaque within the inferolateral aortic arch and proximal descending thoracic aorta. Mild calcific plaque of the aortic arch vessels without focal stenosis or occlusion. Calcific plaque of the right common carotid artery resulting in at least 70% stenosis by NASCET criteria. Calcific plaque of the left common carotid artery resulting in at least 50% stenosis by NASCET criteria. No intracranial aneurysms or large vascular malformations are identified. Moderate mixed calcific plaque of the bilateral intracranial carotid arteries. No focal high-grade stenosis or occlusion. The anterior, middle and posterior cerebral arteries are patent without focal stenosis or occlusion. Other major branches of the posterior circulation: Unremarkable. Major venous structures: Unremarkable. Other findings: Bilateral thyroid nodules, better evaluated on recent thyroid ultrasound. No lymphadenopathy. Lung apices are clear. Cervical and thoracic spondylosis. CT/CTA Head AND Neck W/ Contrast IMPRESSION: 1. No acute vessel occlusion, aneurysm or vascular malformation. 2. Mixed protruding plaque within the inferolateral aortic arch and proximal de scending thoracic aorta. Cardiology consultation recommended. 3. At least 70% stenosis of the right, and 50% stenosis of the left internal ca rotid arteries by NASCET criteria. One or more dose reduction techniques were used (e.g., Automated exposure contr ol, adjustment of the mA and/or kV according to patient size, use of iterative reconstruction technique). Reading Location: [id number]
[2024-10-25 17:08] LABS: Absolute Lymphocyte Count 3.07 X10^3/uL (0.83-4.51); Absolute Neutrophil Count 9.7 X10^3/uL (2.0-7.7); Basophil# 0.08 X10^3/uL; Basophil% 0.5 % (0-1); Eosinophil# 0.16 X10^3/uL; Eosinophils% 1.1 % (0-5); Hematocrit 45.6 % (37-47); Lymphocyte # 3.07 X10^3/ul (0.83-4.51); Lymphocyte % 20.5 % (19-41); Mean Corp Hgb Conc 32.9 g/dL (32-36); Mean Corpuscular Hgb 31.2 pg (27.0-32.0); Mean Corpuscular Volume 94.8 fL (81-99); Mean Platelet Vol. 9.6 fl (6.2-12.0); Monocyte# 1.85 X10^3/uL; Monocyte% 12.3 % (0-10); NRBC Flagged by Analyzer 0 % (0-5); Neutrophil # 9.74 X10^3/uL (2.7-7.7); POSITIVE DIFFERENTIAL YES; Platelet Count 485 K/mm3 (150-450); RBC Distribution Width CV 13.1 % (11.6-14.6); RBC Distribution Width SD 45.1 fl (35.1-43.9); Red Blood Count 4.81 M/mm3 (4.2-5.4)
[2024-10-25 17:12] LABS: Differential Indicated SCAN CRITERIA MET
[2024-10-25 17:32] LABS: Anion Gap 12 (5-15); BUN 13 mg/dL (4-19); BUN/Creat Ratio 16.2 RATIO (10-20); Calcium 10.5 mg/dL (7.6-11.0); Carbon Dioxide 27.1 mmol/L (22.0-29.0); Chloride 105 mmol/L (96-108); EST Glomerular Filtration Rate 77 (>60); Estimated Creatinine Clearance 59.05 ml/min; Glucose 92 mg/dL (70-99); Potassium 4.1 mmol/L (3.3-5.1); Sodium Level 144 mmol/L (133-145)
[2024-10-25 17:49] LABS: Platelet Estimate SLT INC (ADEQ); Reactive Lymphocyte 1+
[2024-10-25 17:50] LABS: Pathologist Review May foll
[2024-10-25 18:11] LABS: Prothrombin Time (Protime)PT. 12.9 SECONDS (11.7-14.9)
--- NOTE | 2024-10-25 19:31 | HP.PCM.HOS_ITS ---
[facility] - General General Date of Service: 10/25/24 Chief Complaint: left arm weakness. HPI Narrative SYBIL SUERO, is a 74 F who presents with left arm weakness. Patient was in therapy today and noted that her left arm was just weak and having paresthesias. [place] that she was weak in her lower extremities as well. This around 9:30 AM. Symptoms to getting better so she presented to the emergency room. Given her entire presentation, she was out of the window for any kind of intervention. She had a head CT that showed no acute process. Age-appropriate volume loss and remote small vessel ischemic changes. CTA of the head and neck showed no acute vessel occlusion. Mixed protruding plaque within the inferior lateral aortic arch and proximal descending thoracic aorta. At least 70% stenosis of the right and 50% stenosis of the left internal carotid. The hospital service was contacted for admission for further stroke evaluation. Patient has had strokes before but affected her right side previously and she has previously had a left carotid endarterectomy. [facility] Medical History Presence of tooth-root and mandibular implants Myocardial infarction Hyperlipidemia Atherosclerotic heart disease of [place] coronary artery without angina pectoris Essential hypertension Former smoker Carotid stenosis, bilateral Cutaneous skin tags Seborrheic keratosis Vertigo Gastrointestinal complaints Home Medications ?Medication ?Instructions ?Recorded ?Last Taken ?Type amlodipine 10 mg tablet 10 mg PO DAILY bp 09/12/18 0 11/11/21 History simvastatin 40 mg tablet 40 mg PO QHS cholesterol 11/10/21 History aspirin 81 mg tablet,delayed 81 mg PO DAILY heart 12/0 12/1511/10/21 History release cholecalciferol (vitamin D3) 50 50 mcg PO BID SUPPLEME NT 11/11/21 11/11/21 History mcg (2,000 unit) capsule fluticasone propionate 50 2 spray intranasal DAILY PRN Sinus 11/11/21 Unknown History mcg/actuation nasal Symptoms spray,suspension carvedilol 3.125 mg tablet 3.125 mg PO BID #60 tabs Unknown Rx clopidogrel 75 mg tablet (Plavix) 75 mg PO DAILY 03/21 Unknown History hydralazine 10 mg tablet 10 mg PO BID 03/21/22 Unknow n History Allergy/AdvReac Type Severity Reaction Status Date / Time hydrochlorothiazide Allergy Severe Blood Verified 10/16/24 10:26 Pressure Sporadic Family History Mother Cancer Brother Cancer Surgical History S/P cataract extraction History of carotid endarterectomy (07/2020) History of sinus surgery History of cholecystectomy History of coronary artery stent placement (11/12/21) Social History Smoking Status: Former smoker alcohol intake: never substance use type: does not use what type of physical activity do you participate in: walking frequency: daily ROS ALDAIR Bales Recently had some upper rib pain that was alleviated with some manipulation in the past. She was told that it was due to her neck. Has had a cough for couple weeks. Couple weeks ago she had a severe illness but was not formally diagnosed as flu or COVID. All review of systems were negative except as mentioned above in the history of present illness and the other review of systems. Vital Signs Vital Signs Vital Signs: 10/25/24 16:16 10/25/24 16:43 10/25/24 16:46 Temperature 36.1 C L Temperature Source Temporal Pulse Rate 98 Respiratory Rate 16 Respiratory Effort Normal Respiratory Pattern Normal Blood Pressure 160/73 H Blood Pressure Mean 102 Pulse Ox 95 Oxygen Delivery Method Room Air Room Air 10/25/24 16:59 10/25/24 17:00 10/25/24 17:15 Temperature Temperature Source Pulse Rate 107 H 100 97 Respiratory Rate 19 H 22 H 20 H Respiratory Effort Respiratory Pattern Blood Pressure 147/69 H 146/78 H Blood Pressure Mean 91 95 Pulse Ox 95 Oxygen Delivery Method Room Air 10/25/24 17:40 10/25/24 17:43 10/25/24 17:45 Temperature Temperature Source Pulse Rate 103 H 115 H Respiratory Rate 19 H 13 Respiratory Effort Respiratory Pattern Blood Pressure 178/86 H 170/80 H Blood Pressure Mean 113 105 Pulse Ox Oxygen Delivery Method 10/25/24 18:00 10/25/24 18:15 10/25/24 18:30 Temperature 36.6 C Temperature Source Pulse Rate 96 99 96 Respiratory Rate 17 15 17 Respiratory Effort Respiratory Pattern Blood Pressure 144/80 H 156/78 H 159/79 H Blood Pressure Mean 98 99 105 Pulse Ox 97 96 Oxygen Delivery Method Room Air 10/25/24 18:30 10/25/24 18:48 10/25/24 18:56 Temperature Temperature Source Pulse Rate 98 115 H 99 Respiratory Rate 14 22 H 16 Respiratory Effort Respiratory Pattern Blood Pressure 159/79 H 163/80 H Blood Pressure Mean 98 102 Pulse Ox 97 95 Oxygen Delivery Method Room Air Room Air 10/25/24 19:00 Temperature Temperature Source Pulse Rate 102 H Respiratory Rate 16 Respiratory Effort Respiratory Pattern Blood Pressure Blood Pressure Mean Pulse Ox Oxygen Delivery Method Weight Weight: 74.253 kg Body Mass Index (BMI) 27.2 Physical Exam Narrative - Physical Exam General: Alert, Oriented x3, Cooperative HEENT: Atraumatic, PERRLA, EOMI, Normocephalic Oral: Moist Mucosa, No Gingival or Mucosal Lesions/ Ulcerations Neck: Supple, No JVD, Negative Carotid Bruits Lungs: Clear to auscultation, Normal air movement Cardiovascular: Regular rate, Normal S1, Normal S2, No murmurs Abdomen: Bowel Sounds Present, Soft, Non Tender, Non-Distended, No Hepato- splenomegaly Extremities: No clubbing, No cyanosis, No edema, Capillary Refill Less than 3 Seconds Skin: No rashes, No breakdown Musculoskeletal: No Tenderness to Palpation of Joints or Extremities Neurological: Cranial nerves II through XII grossly intact. Muscle strength 5-5 in upper extremities bilaterally and right lower extremity. 4 out of 5 in the left lower extremity. Patient had normal [id number] bilaterally and ataxia of the left [id number]. Psych/Mental Status: Normal Affect, Appropriate Results Lab / Micro Data Attestation: I reviewed the patient's lab results. 10/25/24 16:52 10/25/24 16:52 Labs: Laboratory Results - last 24 hr 10/25/24 16:52: WBC 15.0 H, RBC 4.81, Hgb 15.0, Hct 45.6, MCV 94.8, MCH 31.2, MCHC 32.9, RDW Std Deviation 45.1 H, RDW Coeff of Rolanda 13.1, Plt Count 485 H, MPV 9.6, Immature Gran % (Auto) 0.600, Neut % (Auto) 65.0, Lymph % (Auto) 20.5, [place] % (Auto) 12.3 H, Eos % (Auto) 1.1, Baso % (Auto) 0.5, Absolute Neuts (auto) 9.7 H, Absolute Lymphs (auto) 3.07, Nucleated RBC % 0, Diff Path Review May foll, Reactive Lymphocytes 1+, Platelet Estimate SLT INC, PT 12.9, INR 1.0, Sodium 144, Potassium 4.1, Chloride Direct 105, Carbon Dioxide 27.1, Anion Gap 12, BUN 13, Creatinine 0.80, Estim Creat Clear Calc 59.05, Est GFR (MDRD) Non-Af 77, BUN/Creatinine Ratio 16.2, Glucose 92, Calcium 10.5 Imaging Radiology Impression Chest X-Ray 10/25/24 17:00 IMPRESSION: NEGATIVE CHEST. Reading Location: [facility] Brain CT 10/25/24 17:05 IMPRESSION: 1. No acute intracranial abnormality. 2. Age-appropriate volume loss and remote small vessel ischemic changes. 3. Mild chronic maxillary sinusitis Reading Location[facility] Head/Neck CTA 10/25/24 17:05 IMPRESSION: 1. No acute vessel occlusion, aneurysm or vascular malformation. 2. Mixed protruding plaque within the inferolateral aortic arch and proximal descending thoracic aorta. Cardiology consultation recommended. 3. At least 70% stenosis of the right, and 50% stenosis of the left internal carotid arteries by NASCET criteria. One or more dose reduction techniques were used (e.g., Automated exposure control, adjustment of the mA and/or kV according to patient size, use of iterative reconstruction technique). Reading Location: [facility] Assessment & Plan Assessment/Plan (1) CVA (cerebral vascular accident): PLAN: Suspected given her symptoms and prior history and carotid stenosis on the right. Patient already takes aspirin, complete overall and statin. Will continue those Will monitor the patient on telemetry. Patient will likely require an event monitor upon discharge though I suspect that the etiology is likely due to her carotid stenosis. Check an MRI of the brain, 2D echocardiogram, fasting lipid panel. Consult [facility] teleneurology for further recommendations. (2) Carotid stenosis, right: PLAN: Suspect the nidus of her symptoms. Patient will need follow-up with vascular surgery as outpatient. Continue with aspirin, clopidogrel and statin. PLAN: Plan Hypertension: Given her symptoms started at 930, will give 24 hours with out aggressive blood pressure control. After 10 AM tomorrow, resume amlodipine, clopidogrel and hydralazine Hyperlipidemia: Continue with statin VTE prophylaxis with enoxaparin CODE STATUS: Addressed with the patient. Patient wishes to be full code Discussed with the patient's at bedside. Charges/Coding Visit Charges Inpatient E&M: 35594 Init Hosp L3
[2024-10-25 19:35] LABS: Partial Thromboplast Time 29.5 Seconds (24.1-36.2)
--- NOTE | 2024-10-25 20:38 | ECHOD_ITS ---
Reason For Study Reason For Study: TIA/CVA Procedure This was a 2D Doppler, Color Flow transthoracic echocardiogram. Exam performed portable in patient room. Left Ventricle Normal LV size. The estimated ejection fraction is 75 %. No evidence for diastolic dysfunction. No regional wall motion abnormalities noted. Right Ventricle Normal RV size. Normal systolic function. Atria The left and right atria are normal. No doppler evidence for ASD. Mitral Valve There is moderate mitral annular calcification. There is no mitral valve stenosis. No mitral valve insufficiency. Tricuspid Valve There is no tricuspid stenosis. Unable to estimate RV systolic pressure due to inadequate jet, pulmonary artery pressure probably normal. Aortic Valve Trisinus/trileaflet aortic valve. There is no aortic stenosis. No aortic valve insufficiency. Pulmonic Valve There is no pulmonic valvular stenosis. No pulmonic valve insufficiency. Great Vessels Normal sized aortic root. Pericardium/Pleural No pericardial effusion. MMode/2D Measurements & Calculations LVIDd: 4.3 cm IVSd: 1.1 cm LVOT diam: 2.0 cm LVIDs: 2.3 cm LVPWd: 1.3 cm LVOT area: 3.1 cm2 FS: 45.1 % Ao root diam: 3.2 cm LAV(MOD-sp4): 28.8 ml LVAd ap4: 21.3 cm2 LVLd ap4: 6.9 cm EDV(MOD-sp4): 52.2 ml EDV(sp4-el): 55.7 ml LVAs ap4: 9.5 cm2 LVLs ap4: 5.7 cm ESV(MOD-sp4): 15.4 ml ESV(sp4-el): 13.6 ml EF(MOD-sp4): 70.5 % EF(sp4-el): 75.5 % SV(MOD-sp4): 36.8 ml SV(sp4-el): 42.1 ml LA A4 area: 12.7 cm2 SI(MOD-sp4): 20.6 ml/m2 LA dimension(2D): 3.2 cm RA A4 area: 8.7 cm2 Time Measurements MV dec time: 0.17 sec Doppler Measurements & Calculations MV E max manolo: 68.4 cm/sec Lat Peak E' Manolo: 7.4 cm/sec Med Peak E' Manolo: 6.1 cm/sec MV A max manolo: 90.1 cm/sec E/E' lat: 9.2 E/E' med: 11.1 MV E/A: 0.76 MV V2 max: 97.4 cm/sec Ao V2 max: 110.7 cm/sec MV max P.8 mmHg MV dec slope: 405.5 cm/sec2 Ao max P.9 mmHg MV V2 mean: 66.1 cm/sec Ao V2 mean: 81.0 cm/sec MV mean P.9 mmHg Ao mean P.0 mmHg MV V2 VTI: 28.5 cm Ao V2 VTI: 26.3 cm AV (velocity ratio): 0.91 MVA(VTI): 2.6 cm2 ROBY(I,D): 2.8 cm2 ROBY(V,D): 3.1 cm2 LV V1 max: 111.2 cm/sec SV(LVOT): 73.8 ml PA V2 max: 114.3 cm/sec LV V1 max P.9 mmHg PA V2 mean: 80.2 cm/sec LV V1 mean P.1 mmHg LV V1 mean: 83.0 cm/sec LV V1 VTI: 23.9 cm ECHO/Echo Complete Interpretation Summary The estimated ejection fraction is 75 %. No evidence for diastolic dysfunction. Ordering Physician: Dominic Gross Referring Physician: Dominic Gross Performed By: Brook Leiva RCS
[2024-10-25] MEDS: hydrALAZINE 10 MG Tablet PO (22:10)
[2024-10-25] MEDS: Carvedilol 3.125 MG TABLET PO (22:11)
[2024-10-25] MEDS: 0.9% Saline Lock 10 ML Syringe IV (23:39)
[2024-10-25] MEDS: Ondansetron 4 MG/2 ML Vial IV (23:39)
[2024-10-26] VITALS (8 sets, daily range): BP systolic 121–147; BP diastolic 66–76; PULSE 72–87; RESP 18; TEMP 36.3–37.2; O2SAT 94–98; BMI 22.6
--- NOTE | 2024-10-26 03:59 | EKG12_ITS ---
Test Reason : CP Blood Pressure : */* mmHG Vent. Rate : 75 BPM Atrial Rate : 75 BPM P-R Int : 182 ms QRS Dur : 92 ms QT Int : 376 ms P-R-T Axes : 69 -37 83 degrees QTcB Int : 419 ms Normal sinus rhythm Left axis deviation Inferior infarct , age undetermined Abnormal ECG When compared with ECG of 25-Oct-2024 16:47, MANUAL COMPARISON REQUIRED DATA IS UNCONFIRMED Confirmed by Mike Whiting ([id number]), film editor supervisor LEON SIDDIQI ([id number]) on 10/28/2024 9:47:32 AM Referred By: Dominic Gross Confirmed By: Mike Whiting
[2024-10-26] MEDS: Ondansetron 4 MG/2 ML Vial IV ×2 (05:48→08:23)
[2024-10-26] MEDS: 0.9% Saline Lock 10 ML Syringe IV ×2 (05:48→08:23)
--- NOTE | 2024-10-26 06:00 | MRI_ITS ---
EXAM: BRAIN WITHOUT CONTRAST CLINICAL HISTORY: CVA COMPARISON: None TECHNIQUE: PROCEDURE: Multiplanar sequences of the brain were obtained on a 1.5 Rebeca MRI system, including T1, T2, FLAIR, DWI, and ADC. No intravenous contrast was administered. FINDINGS: MRI BRAIN: No intraparenchymal hemorrhage is evident. Foci of diffusion restriction are noted in the right frontal and parietal lobes.. There is no extra-axial fluid collection, mass effect, or shift of midline structures. The basal cisterns are visualized. The ventricles and cortical sulci are in proportion and consistent with the patient's age. There is no signal abnormality in the andrews matter. There are scattered foci of T2/FLAIR hyperintensities in the supratentorial deep white matter that are nonspecific but most likely related to chronic small vessels ischemic changes and appears out of proportion for patient's age. The midline structures demonstrate normal contours. The craniocervical junction is unremarkable. The flow voids of the large intracranial vessels are normal. The calvarium is unremarkable. The paranasal sinuses and mastoid air cells are clear. MRI/Brain without Contrast IMPRESSION: 1. Acute ischemia in the right frontal and parietal lobes. 2. Age-appropriate volume loss and remote small vessel ischemic changes Findings communicated to Aleksandra Bartlett RN on 10/26/2024 at 1127 hours Reading Location: [facility]
[2024-10-26 06:01] LABS: Cholesterol 153 mg/dL (<=200); High Density Lipoprotein 63 mg/dL; Low Density Lipoprotein Calc. 78 mg/dL; Triglycerides 60 mg/dL; Very Low Density Lipoprotein 12 mg/dL (5-40); cholesterol:hdl ratio screen 2.44
--- NOTE | 2024-10-26 08:24 | PN.HOSP_ITS ---
Reason for Visit Reason for Visit: Diagnoses Cerebral infarction, unspecified (10/25/24) Occlusion and stenosis of right carotid artery (10/25/24) Subjective Subjective No changes in neurological status Discussed the results of her MRI brain, patient expressed concern about prior interruption in her dual antiplatelet therapy for dental extractions, she suspects this might be the reason for her acute presentation this time. Eager for home discharge at this time Objective Data Objective Data Vital Signs: Vital Signs Temp Pulse Resp BP Pulse Ox O2 Del Method 97.6 F L 87 18 144/66 H 94 Room Air 10/26/24 08:11 10/26/24 08:11 10/26/24 08:11 10/26/24 08:11 10/26/24 08:11 10/26/24 08:11 Oxygen Delivery Method Room Air Weight: 161 lb 13.109 oz Body Mass Index (BMI) 22.6 Lab / Micro Data Attestation: I reviewed the patient's lab results. 10/25/24 16:52 10/25/24 16:52 Labs: Laboratory Results - last 24 hr 10/25/24 16:52: WBC 15.0 H, RBC 4.81, Hgb 15.0, Hct 45.6, MCV 94.8, MCH 31.2, MCHC 32.9, RDW Std Deviation 45.1 H, RDW Coeff of Rolanda 13.1, Plt Count 485 H, MPV 9.6, Immature Gran % (Auto) 0.600, Neut % (Auto) 65.0, Lymph % (Auto) 20.5, Hitchcock % (Auto) 12.3 H, Eos % (Auto) 1.1, Baso % (Auto) 0.5, Absolute Neuts (auto) 9.7 H, Absolute Lymphs (auto) 3.07, Nucleated RBC % 0, Diff Path Review May foll, Reactive Lymphocytes 1+, Platelet Estimate SLT INC, PT 12.9, INR 1.0, APTT 29.5, Sodium 144, Potassium 4.1, Chloride Direct 105, Carbon Dioxide 27.1, Anion Gap 12, BUN 13, Creatinine 0.80, Estim Creat Clear Calc 59.05, Est GFR (MDRD) Non-Af 77, BUN/Creatinine Ratio 16.2, Glucose 92, Calcium 10.5 10/26/24 04:39: Triglycerides 60, Cholesterol 153, VLDL Cholesterol 12, HDL Cholesterol 63, Cholesterol/HDL Ratio 2.44 ABG Data Attestation: I personally reviewed and interpreted this ABG as follows: Radiography Diagnostic Testing: Radiology Impression Chest X-Ray 10/25/24 17:00 IMPRESSION: NEGATIVE CHEST. Reading Location: [facility] Brain CT 10/25/24 17:05 IMPRESSION: 1. No acute intracranial abnormality. 2. Age-appropriate volume loss and remote small vessel ischemic changes. 3. Mild chronic maxillary sinusitis Reading Location: [facility] Head/Neck CTA 10/25/24 17:05 IMPRESSION: 1. No acute vessel occlusion, aneurysm or vascular malformation. 2. Mixed protruding plaque within the inferolateral aortic arch and proximal descending thoracic aorta. Cardiology consultation recommended. 3. At least 70% stenosis of the right, and 50% stenosis of the left internal carotid arteries by NASCET criteria. One or more dose reduction techniques were used (e.g., Automated exposure control, adjustment of the mA and/or kV according to patient size, use of iterative reconstruction technique). Reading Location: [facility] NIHSS NIHSS 1a. Level of Consciousness: Alert; keenly responsive 1b. LOC Questions: Answers BOTH questions correctly. 1c. LOC Commands: Performs both tasks correctly. 2. Best Gaze: Normal 3. Visual: No visual loss Total: 0 Physical Exam Const alert and oriented x3 HEENT head/scalp atraumatic Eyes PERRL and EOMs intact bilaterally Neck no lymphadenopathy Resp normal respiratory effort Cardio regular rate and regular rhythm GI normal to inspection, nondistended, normoactive bowel sounds Extremity normal to inspection Neuro oriented x3, CN's II-XII intact bilaterally and moves all extremities Neuro Narrative: Significant distal weakness in all left arm and leg Sensorium / Orientation: awake and alert Coordination / Balance: [id number] test normal Psych affect normal Assessment & Plan Assessment/Plan (1) CVA (cerebral vascular accident): PLAN: Plan 74-year-old female admitted to the hospital for concerns regarding left arm weakness that was outside the window. She has been further evaluated for her cerebrovascular episode. Her MRI brain shows that she has right frontal and parietal lobe infarct. Unfortunately she is out of the window. And cannot get thrombolytic therapy at this time. She endorses interruption of her DAPT due to dental extractions last month as well as ongoing dental treatment. These interruptions were more than a week long. # Acute right frontal and parietal stroke # History of multiple strokes in the past # Carotid stenosis seen on imaging -[facility] teleneurology consult evaluation -PT OT evaluation regarding functional status and ability to function well at home -Continue aspirin and Plavix, statin therapy #Hypertension -Continue home medications for now with amlodipine and hydralazine #Dyslipidemia - continue simvastatin
[2024-10-26] MEDS: amLODIPine 10 MG Tablet PO (11:48)
[2024-10-26] MEDS: Aspirin E.C. 81 MG Tablet PO (11:48)
[2024-10-26] MEDS: hydrALAZINE 10 MG Tablet PO ×2 (11:48→20:17)
[2024-10-26] MEDS: Carvedilol 3.125 MG TABLET PO ×2 (11:48→16:39)
[2024-10-26] MEDS: Clopidogrel Bisulfate 75 MG Tablet PO (11:49)
--- NOTE | 2024-10-26 13:03 | CASEMGMT ---
Social Work Pt positive for stroke. SW completed PHQ9 depression screen and pt with a score of 1 (minimal depression). Pt educated to correlation between stroke and depression. Pt expressing no concerns at this time. ARLEEN Ricci
--- NOTE | 2024-10-26 14:30 | CASEMGMT ---
RN MONE METER AND SERVICE LINE INSPECTOR CM?to room to meet with patient for initial transition planning/care coordination assessment. RN CM?introduced self and role at [facility]. Pt voices understanding and consents to assessment?at this time. Pt resting in bed in no distress at this time. @ bedside. Pt is A/O at this time and answers all questions appropriately. Care providers, pharmacy, and demographics verified/updated at this time. PCP: Dr Tong Santana Specialists: Dr Aly Rueda-sql programmer @ [facility] Pharmacy: [facility] Insurance: [facility] Prescription Benefit: Yes LNOK: , [place]. Dtr's Tammy and Lizet Living Arrangements: Lives w/ in 2-story home w/steps to enter. Ind w/ADL's. Transportation:Pt states drives self and states no transportation concerns at this time. also drives. DME: Denies using any DME and denies needs. HHC/SNF: No hx of either. OP Therapy: Pt has been getting OP therapy in [place] for vertigo and also for pinched nerve, will need a new script for OP therapy for CVA. She is considering going to [facility] for OP therapy. Made aware a script for OP therapy can be provided @ discharge and she can take to any location of choice. Pt wishes to return home and states has no further concerns with going home at time of discharge. PLAN: Home w/script for OP therapy. See Green sheet on chart. Shoshana CHEN RN, CM
--- NOTE | 2024-10-26 14:58 | NEURO.CONS ---
Assessment and Plan: Neuro Assessment/Plan 74 y/o woman with h/o UT, DLD, CAD, stroke w/ right sided weakness (resolved) in 2019, carotid stenosis s/p Left CEA p/w left UE weakness and numbness. CT head- no acute intracranial process. CTA- NERY 70% stenosis and LICA 50% stenosis. MRI brain - right ICA strokes, small. TTE- EF-75% Today, patient reports feeling better with NIHSS-0. Diagnosis: Right frontal-parietal small strokes, in the setting of NERY 70% stenosis, symptomatic Plan:ASA and plavix along with statin. Consult vascular surgery at [place] or if there is any delay, transfer to [facility] for further management of carotid stenosis. Check LDL and A1c. OT/PT/[employer]. Control of vascular risk factors. I personally attended this patient and spent a total time of 70 minutes evaluating this patient including clinical assessment, review of chart, medical history imaging, and determining appropriate treatment and workup. HPI Consult Data Date of Consult: 10/26/24 HPI Narrative HPI Narrative: 74 y/o woman with h/o UT, DLD, CAD, stroke w/ right sided weakness (resolved) in 2019, carotid stenosis s/p Left CEA p/w left UE weakness and numbness. CT head- no acute intracranial process. CTA- NERY 70% stenosis and LICA 50% stenosis. MRI brain - right ICA strokes, small. TTE- EF-75% Today, patient reports feeling better with NIHSS-0. PFSH Medical History Presence of tooth-root and mandibular implants Myocardial infarction Hyperlipidemia Atherosclerotic heart disease of [place] coronary artery without angina pectoris Essential hypertension Former smoker Carotid stenosis, bilateral Cutaneous skin tags Seborrheic keratosis Vertigo Gastrointestinal complaints Home Medications ?Medication ?Instructions ?Recorded ?Last Taken ?Type amlodipine 10 mg tablet 10 mg PO DAILY bp 09/12/18 10/25/24 08:52 History aspirin 81 mg tablet,delayed 81 mg PO DAILY heart 07/31/20 10/25/24 08:53 History release cholecalciferol (vitamin D3) 50 50 mcg PO BID SUPPLEMENT 11/11/21 10/25/24 14:53 History mcg (2,000 unit) capsule fluticasone propionate 50 2 spray intranasal DAILY PRN Sinus 11/11/21 Unknown History mcg/actuation nasal Symptoms spray,suspension carvedilol 3.125 mg tablet 3.125 mg PO BID blood pressure #60 11/13/21 10/25/24 08:53 Rx tabs clopidogrel 75 mg tablet (Plavix) 75 mg PO DAILY blood clots 03/21/22 10/25/24 08:54 History hydralazine 10 mg tablet 10 mg PO BID high BP 03/21/22 10/25/24 08:54 History atorvastatin 20 mg tablet 40 mg (2 x 20 mg) PO QHS #60 tabs 10/27/24 Unknown Rx Allergy/AdvReac Type Severity Reaction Status Date / Time hydrochlorothiazide Allergy Severe Blood Verified 10/16/24 10:26 Pressure Sporadic Family History Mother Cancer Brother Cancer Surgical History S/P cataract extraction History of carotid endarterectomy (07/2020) History of sinus surgery History of cholecystectomy History of coronary artery stent placement (11/12/21) Social History Smoking Status: Former smoker alcohol intake: never substance use type: does not use what type of physical activity do you participate in: walking frequency: daily Vital Signs Vital Signs Vital Signs: 10/25/24 16:16 10/25/24 16:43 10/25/24 16:46 Temperature 97 F L Temperature Source Temporal Pulse Rate 98 Pulse Strength Respiratory Rate 16 Respiratory Effort Normal Respiratory Depth Respiratory Pattern Normal Blood Pressure 160/73 H Blood Pressure Mean 102 Blood Pressure Source Blood Pressure Position Blood Pressure Location Pulse Ox 95 Oxygen Delivery Method Room Air Room Air 10/25/24 16:59 10/25/24 17:00 10/25/24 17:15 Temperature Temperature Source Pulse Rate 107 H 100 97 Pulse Strength Respiratory Rate 19 H 22 H 20 H Respiratory Effort Respiratory Depth Respiratory Pattern Blood Pressure 147/69 H 146/78 H Blood Pressure Mean 91 95 Blood Pressure Source Blood Pressure Position Blood Pressure Location Pulse Ox 95 Oxygen Delivery Method Room Air 10/25/24 17:40 10/25/24 17:43 10/25/24 17:45 Temperature Temperature Source Pulse Rate 103 H 115 H Pulse Strength Respiratory Rate 19 H 13 Respiratory Effort Respiratory Depth Respiratory Pattern Blood Pressure 178/86 H 170/80 H Blood Pressure Mean 113 105 Blood Pressure Source Blood Pressure Position Blood Pressure Location Pulse Ox Oxygen Delivery Method 10/25/24 18:00 10/25/24 18:15 10/25/24 18:30 Temperature 98 F Temperature Source Pulse Rate 96 99 96 Pulse Strength Respiratory Rate 17 15 17 Respiratory Effort Respiratory Depth Respiratory Pattern Blood Pressure 144/80 H 156/78 H 159/79 H Blood Pressure Mean 98 99 105 Blood Pressure Source Blood Pressure Position Blood Pressure Location Pulse Ox 97 96 Oxygen Delivery Method Room Air 10/25/24 18:30 10/25/24 18:48 10/25/24 18:56 Temperature Temperature Source Pulse Rate 98 115 H 99 Pulse Strength Respiratory Rate 14 22 H 16 Respiratory Effort Respiratory Depth Respiratory Pattern Blood Pressure 159/79 H 163/80 H Blood Pressure Mean 98 102 Blood Pressure Source Blood Pressure Position Blood Pressure Location Pulse Ox 97 95 Oxygen Delivery Method Room Air Room Air 10/25/24 19:00 10/25/24 20:00 10/25/24 20:38 Temperature 98.8 F Temperature Source Temporal Pulse Rate 102 H 92 85 Pulse Strength Respiratory Rate 16 15 16 Respiratory Effort Respiratory Depth Respiratory Pattern Blood Pressure 158/93 H 152/88 H Blood Pressure Mean 114 109 Blood Pressure Source Monitor Blood Pressure Position Semi-Fowlers Blood Pressure Location Left Arm Pulse Ox 98 Oxygen Delivery Method Room Air Room Air 10/25/24 20:43 10/25/24 22:00 10/25/24 22:10 Temperature Temperature Source Pulse Rate 85 Pulse Strength Respiratory Rate Respiratory Effort Normal Non-Labored Respiratory Depth Normal Respiratory Pattern Normal Blood Pressure 152/88 H Blood Pressure Mean Blood Pressure Source Blood Pressure Position Blood Pressure Location Pulse Ox 96 Oxygen Delivery Method Room Air Room Air 10/26/24 01:30 10/26/24 04:02 10/26/24 04:04 Temperature 99.0 F 97.4 F L Temperature Source Temporal Axillary Pulse Rate 80 72 Pulse Strength Respiratory Rate 18 18 Respiratory Effort Normal Non-Labored Respiratory Depth Normal Respiratory Pattern Normal Blood Pressure 134/74 H 137/72 H Blood Pressure Mean 94 93 Blood Pressure Source Monitor Monitor Blood Pressure Position Semi-Fowlers Semi-Fowlers Blood Pressure Location Left Arm Left Arm Pulse Ox 96 97 Oxygen Delivery Method Room Air Room Air Room Air 10/26/24 07:59 10/26/24 08:02 10/26/24 08:11 Temperature 97.6 F L Temperature Source Temporal Pulse Rate 87 Pulse Strength Normal (2+) Respiratory Rate 18 Respiratory Effort Normal Non-Labored Respiratory Depth Normal Respiratory Pattern Normal Blood Pressure 144/66 H Blood Pressure Mean 92 Blood Pressure Source Monitor Blood Pressure Position Semi-Fowlers Blood Pressure Location Right Arm Pulse Ox 94 Oxygen Delivery Method Room Air Room Air 10/26/24 11:48 10/26/24 12:11 10/26/24 14:52 Temperature 97.6 F L Temperature Source Temporal Pulse Rate 87 86 Pulse Strength Respiratory Rate 18 Respiratory Effort Normal Non-Labored Respiratory Depth Normal Respiratory Pattern Normal Blood Pressure 144/66 H 147/69 H Blood Pressure Mean 95 Blood Pressure Source Monitor Blood Pressure Position Semi-Fowlers Blood Pressure Location Right Arm Pulse Ox 95 Oxygen Delivery Method Room Air Room Air Weight Weight: 73.4 kg Body Mass Index (BMI) 22.6 EEG Results Procedure Details EEG Procedure Details: SYBIL SUERO is a 74 year old F with a past medical history of , who presents for evaluation of Electroencephalogram on DATE at TIME NIHSS NIHSS Nursing Documentation NIHSS Nursing Documentation: NIH Stroke Scale Start: 10/25/24 16:45 Freq: Status: Discharge Protocol: Activity Type Activity Date Activity User E-sign Co-sign Detail Recorded Client Recorded Date Recorded By Document 10/25/24 16:46 [id number] 10/25/24 16:48 10/25/24 16:46 NIH Stroke Scale [NIHSS] A score of 0 is normal or asymptomatic . Total possible score is 42. Inpatient: RN or Physician to activate a stroke alert for onset of new stroke symptoms or with NIHSS increase >/= 3 points. Following change in neurological status, NIHSS will be performed per physician order or more frequently PRN. -1a. Level of Consciousness Alert; keenly responsive -1b. LOC Questions Answers BOTH questions correctly. -1c. LOC Commands Performs both tasks correctly . -2. Best Gaze Normal -3. Visual No visual loss -4. Facial Palsy Normal symmetrical movements -5a. Left Arm No drift; arm holds 90 (or 45 ) degrees for full 10 seconds -5b. Right Arm No drift; arm holds 90 (or 45 ) degrees for full 10 seconds -6a. Left Leg Drift; leg falls by the end of 5- seconds, but does not hit bed -6b. Right Leg No drift; leg holds 30-degree position for full 5 seconds -7. Limb Ataxia Absent -8. Sensory Normal; no sensory loss -9. Best Language No aphasia; normal -10. Dysarthria Normal -11. Extinction and Inattention No abnormality -Total 1 Query Text:A score of 0 is normal or asymptomatic. Total possible score is 42 . ED: Notify Physician for NIHSS increase by > / = 3 points. Inpatient: RN or Physician to activate a stroke alert for NIHSS increase of > / = 3 points. NIHSS: Ischemic Stroke/TIA Start: 10/25/24 20:38 Text: For PCU Patients: NIH and Neuro Check every 4 Status: Active hours, PRN and with change in RN caregiver. Freq: Q4H Protocol: Activity Type Activity Date Activity User E-sign Co-sign Detail Recorded Client Recorded Date Recorded By Document 10/26/24 12:11 [facility] ] 10/26/24 12:50 [facility] 10/26/24 12:11 -1a. Level of Consciousness Alert; keenly responsive -1b. LOC Questions Answers BOTH questions correctly. -1c. LOC Commands Performs both tasks correctly . -2. Best Gaze Normal -3. Visual No visual loss -4. Facial Palsy Normal symmetrical movements -5a. Left Arm No drift; arm holds 90 (or 45 ) degrees for full 10 seconds -5b. Right Arm No drift; arm holds 90 (or 45 ) degrees for full 10 seconds -6a. Left Leg No drift; leg holds 30-degree position for full 5 seconds -6b. Right Leg No drift; leg holds 30-degree position for full 5 seconds -7. Limb Ataxia Absent -8. Sensory Normal; no sensory loss -9. Best Language No aphasia; normal -10. Dysarthria Normal -11. Extinction and Inattention No abnormality -Total 0 Query Text:A score of 0 is normal or asymptomatic. Total possible score is 42 . ED: Notify Physician for NIHSS increase by > / = 3 points. Inpatient: RN or Physician to activate a stroke alert for NIHSS increase of > / = 3 points. Coma Scale [Assess] -Eye Opening Spontaneous -Motor Obeys Commands -Verbal Oriented [Total] -Coma Scale Total 15 NIHSS 1a. Level of Consciousness: Alert; keenly responsive 1b. LOC Questions: Answers BOTH questions correctly. 1c. LOC Commands: Performs both tasks correctly. 2. Best Gaze: Normal 3. Visual: No visual loss 4. Facial Palsy: Normal symmetrical movements 5a. Left Arm: No drift; arm holds 90 (or 45) degrees for full 10 seconds 5b. Right Arm: No drift; arm holds 90 (or 45) degrees for full 10 seconds 6a. Left Leg: No drift; leg holds 30-degree position for full 5 seconds 6b. Right Leg: No drift; leg holds 30-degree position for full 5 seconds 7. Limb Ataxia: Absent 8. Sensory: Normal; no sensory loss 9. Best Language: No aphasia; normal 10. Dysarthria: Normal 11. Extinction and Inattention: No abnormality Total: 0 Physical Exam Narrative General: The patient appears nutritionally appropriate, well-groomed, and appears comfortable in no acute distress. Mental Status:? The patient?s mental status was normal including orientation.? Language was intact.? Cranial nerves:? Visual wilkes full, and extra-ocular motion was intact. Symmetric face. Motor: Normal strength in all extremities. Sensation: Intact to touch in all extremities.? Coordination:? Bilateral finger to nose was normal.? There was no dysmetria. Gait:? deferred. Lab / Micro Data 10/25/24 16:52 10/25/24 16:52 Labs: Laboratory Results - last 24 hr 10/25/24 16:52: WBC 15.0 H, RBC 4.81, Hgb 15.0, Hct 45.6, MCV 94.8, MCH 31.2, MCHC 32.9, RDW Std Deviation 45.1 H, RDW Coeff of Rolanda 13.1, Plt Count 485 H, MPV 9.6, Immature Gran % (Auto) 0.600, Neut % (Auto) 65.0, Lymph % (Auto) 20.5, Alexander % (Auto) 12.3 H, Eos % (Auto) 1.1, Baso % (Auto) 0.5, Absolute Neuts (auto) 9.7 H, Absolute Lymphs (auto) 3.07, Nucleated RBC % 0, Diff Path Review May foll, Reactive Lymphocytes 1+, Platelet Estimate SLT INC, PT 12.9, INR 1.0, APTT 29.5, Sodium 144, Potassium 4.1, Chloride Direct 105, Carbon Dioxide 27.1, Anion Gap 12, BUN 13, Creatinine 0.80, Estim Creat Clear Calc 59.05, Est GFR (MDRD) Non-Af 77, BUN/Creatinine Ratio 16.2, Glucose 92, Calcium 10.5 10/26/24 04:39: Triglycerides 60, Cholesterol 153, VLDL Cholesterol 12, HDL Cholesterol 63, Cholesterol/HDL Ratio 2.44 Imaging Radiology Impression Chest X-Ray 10/25/24 17:00 IMPRESSION: NEGATIVE CHEST. Reading Location: [facility] Brain CT 10/25/24 17:05 IMPRESSION: 1. No acute intracranial abnormality. 2. Age-appropriate volume loss and remote small vessel ischemic changes. 3. Mild chronic maxillary sinusitis Reading Location: [facility] Head/Neck CTA 10/25/24 17:05 IMPRESSION: 1. No acute vessel occlusion, aneurysm or vascular malformation. 2. Mixed protruding plaque within the inferolateral aortic arch and proximal descending thoracic aorta. Cardiology consultation recommended. 3. At least 70% stenosis of the right, and 50% stenosis of the left internal carotid arteries by NASCET criteria. One or more dose reduction techniques were used (e.g., Automated exposure control, adjustment of the mA and/or kV according to patient size, use of iterative reconstruction technique). Reading Location: [facility] Echocardiogram 10/25/24 20:38 Interpretation Summary The estimated ejection fraction is 75 %. No evidence for diastolic dysfunction. Ordering Physician: Dominic Gross Referring Physician: Dominic Gross Performed By: Brook Leiva RCS Brain MRI 10/26/24 06:00 IMPRESSION: 1. Acute ischemia in the right frontal and parietal lobes. 2. Age-appropriate volume loss and remote small vessel ischemic changes Findings communicated to Aleksandra Bartlett RN on 10/26/2024 at 1127 hours [facility] Active Medications Active Medications Active Medications: Current Medications Generic Name Dose Route Start Last Admin Trade Name Freq PRN Reason Stop Dose Admin Acetaminophen 650 mg 10/25/24 20:38 Acetaminophen 325 Mg Tablet PO Q6H PRN PRN Pain 1-10 Or Fever>100.7 Amlodipine Besylate 10 mg 10/26/24 10:00 10/26/24 11:48 Amlodipine 10 Mg Tablet PO 10 mg DAILY [facility] Administration Protocol Aspirin 81 mg 10/26/24 08:00 10/26/24 11:48 Aspirin E.C. 81 Mg Tablet PO 81 mg BREAKFAST AUREA Administration Atorvastatin Calcium 20 mg 10/25/24 22:00 10/25/24 23:35 Atorvastatin Calcium 20 Mg Tablet PO Not Given QHS AUREA Carvedilol 3.125 mg 10/26/24 10:00 10/26/24 11:48 Carvedilol 3.125 Mg Tablet PO 3.125 mg BIDCM AUREA Administration Protocol Clopidogrel Bisulfate 75 mg 10/26/24 10:00 10/26/24 11:49 Clopidogrel Bisulfate 75 Mg Tablet PO 75 mg DAILY [facility]UREA Administration Enoxaparin Sodium 40 mg 10/26/24 10:00 10/26/24 11:52 Enoxaparin 40 Mg/0.4 Ml Syringe SC Not Given DAILY [facility] Fluticasone Propionate 2 spray 10/25/24 20:38 Fluticasone 0.05% 1 [place] Nasal.Sry NASAL DAILY PRN Sinus Symptoms Hydralazine HCl 10 mg 10/26/24 10:00 10/26/24 11:48 Hydralazine 10 Mg Tablet PO 10 mg BID AUREA Administration Protocol Hydralazine HCl 5 mg 10/25/24 20:38 Hydralazine 20 Mg/Ml Vial IV 10/26/24 20:38 Q30M PRN maintain BP parameters with HR <60 Sodium Chloride 100 mls @ 15 mls/hr 10/25/24 20:47 IV .Q6H40M PRN Saline Flush Sodium Chloride 100 mls @ 15 mls/hr 10/25/24 20:47 IV .Q6H40M PRN Additional IVPB Infusion Labetalol HCl 20 mg 10/25/24 16:39 Labetalol 20mg/4ml Syringe IV 10/26/24 16:40 X1 PRN BLOOD PRESSURE Labetalol HCl 10 - 20 mg 10/25/24 20:38 Labetalol 20mg/4ml Syringe IV 10/26/24 20:38 Q10M PRN PRN maintain BP parameters with HR >/=60 Ondansetron HCl 4 mg 10/25/24 20:38 10/26/24 08:23 Ondansetron 4 Mg/2 Ml Vial IV 4 mg Q8H PRN PRN Administration NAUSEA/VOMITING Sodium Chloride 10 - 40 ml 10/25/24 20:47 10/26/24 08:23 0.9% Saline Lock 10 Ml Syringe IV 10 ml UD PRN Administration SALINE FLUSH
[2024-10-26] MEDS: Atorvastatin Calcium 20 MG Tablet PO (20:17)
[2024-10-27 00:15] VITALS: BP 150/76; PULSE 79; RESP 18; TEMP 36.6; O2SAT 96
[2024-10-27 04:15] VITALS: BP 145/78; PULSE 80; RESP 18; TEMP 37.3; O2SAT 97
[2024-10-27 08:00] VITALS: BP 132/65; PULSE 85; RESP 18; TEMP 36.4; O2SAT 97
[2024-10-27 09:24] VITALS: BP 132/65; PULSE 85
[2024-10-27] MEDS: hydrALAZINE 10 MG Tablet PO (09:24)
[2024-10-27] MEDS: Carvedilol 3.125 MG TABLET PO (09:24)
[2024-10-27] MEDS: amLODIPine 10 MG Tablet PO (09:24)
[2024-10-27] MEDS: Aspirin E.C. 81 MG Tablet PO (09:24)
[2024-10-27] MEDS: Clopidogrel Bisulfate 75 MG Tablet PO ×2 (09:25→12:28)
[2024-10-27 12:00] VITALS: BP 136/61; PULSE 77; RESP 18; TEMP 36.9; O2SAT 96
--- NOTE | 2024-10-27 12:10 | PCM.PN.HOSP ---
Reason for Visit Reason for Visit: Diagnoses Cerebral infarction, unspecified (10/25/24) Occlusion and stenosis of right carotid artery (10/25/24) Subjective Subjective Concerns, plan regarding high-dose aspirin and Plavix was discussed Patient willing to see vascular surgery regarding moving ahead with revascularization surgery Objective Data Objective Data Vital Signs: Vital Signs Temp Pulse Resp BP Pulse Ox O2 Del Method 97.5 F L 85 18 132/65 H 97 Room Air 10/27/24 08:00 10/27/24 09:24 10/27/24 08:00 10/27/24 09:24 10/27/24 08:00 10/27/24 09:18 Oxygen Delivery Method Room Air Weight: 161 lb 13.109 oz Body Mass Index (BMI) 22.6 Intake & Output: Intake and Output for Last 24 Hours 10/25/24 10/26/24 10/27/24 23:59 23:59 23:59 Intake Total 480 / 480 Balance 480 / 480 Lab / Micro Data 10/25/24 16:52 10/25/24 16:52 Radiography Diagnostic Testing: Radiology Impression Echocardiogram 10/25/24 20:38 Interpretation Summary The estimated ejection fraction is 75 %. No evidence for diastolic dysfunction. Ordering Physician: Dominic Gross Referring Physician: Dominic Gross Performed By: Brook Leiva RCS Physical Exam Const alert, oriented x3 and no apparent distress HEENT head/scalp atraumatic Eyes PERRL Neck no lymphadenopathy Resp normal respiratory effort Cardio regular rate and regular rhythm GI normal to inspection, nondistended, normoactive bowel sounds Extremity normal to inspection and full ROM Neuro oriented x3, CN's II-XII intact bilaterally and moves all extremities Neuro Narrative: Some sensory weakness present over left hand, good x ray technologist strength Assessment & Plan Assessment/Plan (1) CVA (cerebral vascular accident): PLAN: Plan 74-year-old female admitted to the hospital for concerns regarding left arm weakness that was outside the window. She has been further evaluated for her cerebrovascular episode. Her MRI brain shows that she has right frontal and parietal lobe infarct. Unfortunately she is out of the window. And cannot get thrombolytic therapy at this time. She endorses interruption of her DAPT due to dental extractions last month as well as ongoing dental treatment. These interruptions were more than a week long. She was evaluated by neurology yesterday, recommended increasing aspirin Plavix doses for 2 doses and also vascular surgery consult regarding revascularization. # Acute right frontal and parietal stroke # History of multiple strokes in the past # Carotid stenosis seen on imaging -[facility] teleneurology recommendations are appreciated -Vascular surgery consult placed, plan for endarterectomy in 7 to 10 days -PT OT evaluation regarding functional status and ability to function well at home -Continue aspirin and Plavix, statin therapy #Hypertension -Continue home medications for now with amlodipine and hydralazine #Dyslipidemia - continue simvastatin
--- NOTE | 2024-10-27 12:56 | EX.PCM.CON.S ---
Assessment & Plan Assessment/Plan (1) Cerebral infarction due to stenosis of right carotid artery: PLAN: -CTA images reviewed, 70% stenosis right ICA, soft irregular plaque with minimal calcification -risks/benefits/indications/alternatives discussed -event occurred while off DAPT; has been resumed this admission -ok for discharge, plan for outpatient CEA at 7-14 days from event -follows with cardiology at [facility]; will contact them for risk stratification HPI Consult Data Date of Consult: 10/27/24 HPI Narrative HPI Narrative: SYBIL SUERO, is a 74 F who presents with left upper and lower extremity weakness and paresthesias that began abruptly on 10/25 prompting her to seek medical attention. She was found to have 2 small punctate right hemispheric infarcts and right internal carotid artery stenosis. She has known history of carotid stenosis with a prior left carotid endarterectomy several years prior and had been followed with serial duplex most recent imaging in October 2023. This had revealed plaque but less than 50% stenosis at the time. She is maintained on aspirin and Plavix long-term due to significant coronary artery and peripheral vascular disease. She had been taken off of this temporarily for a planned dental procedure and had been off for approximately 10 days prior to her neurologic symptoms. She had no prior similar events on the left however she had a TIA in the past affecting the right side of her body prior to her left carotid endarterectomy. She states that her left leg still takes some increased focus to lift and walk though it is improved since admission. Also her left arm is improved and she is now able to move her hand though she still has paresthesias and some weakness. She denies any prior neck radiation or limited range of motion/cervical fusions; Only surgery on her neck with the left carotid endarterectomy. [facility] Medical History Presence of tooth-root and mandibular implants Myocardial infarction Hyperlipidemia Atherosclerotic heart disease of [place] coronary artery without angina pectoris Essential hypertension Former smoker Carotid stenosis, bilateral Cutaneous skin tags Seborrheic keratosis Vertigo Gastrointestinal complaints Home Medications ?Medication ?Instructions ?Recorded ?Last Taken ?Type amlodipine 10 mg tablet 10 mg PO DAILY bp 09/12/18 10/25/24 08:52 History simvastatin 40 mg tablet 40 mg PO QHS cholesterol 09/12/18 10/25/24 08:55 History aspirin 81 mg tablet,delayed 81 mg PO DAILY heart 12/04/20 02/28/25 08:53 History release cholecalciferol (vitamin D3) 50 50 mcg PO BID SUPPLEMENT 11/11/21 10/25/24 14:53 History mcg (2,000 unit) capsule fluticasone propionate 50 2 spray intranasal DAILY PRN Sinus 11/11/21 Unknown History mcg/actuation nasal Symptoms spray,suspension carvedilol 3.125 mg tablet 3.125 mg PO BID #60 tabs 11/13/21 10/25/24 08:53 Rx clopidogrel 75 mg tablet (Plavix) 75 mg PO DAILY blood clots 03/21/22 10/25/24 08:54 History hydralazine 10 mg tablet 10 mg PO BID high BP 03/21/22 10/25/24 08:54 History Allergy/AdvReac Type Severity Reaction Status Date / Time hydrochlorothiazide Allergy Severe Blood Verified 10/16/24 10:26 Pressure Sporadic Family History Mother Cancer Brother Cancer Surgical History S/P cataract extraction History of carotid endarterectomy (07/2020) History of sinus surgery History of cholecystectomy History of coronary artery stent placement (11/12/21) Social History Smoking Status: Former smoker alcohol intake: never substance use type: does not use what type of physical activity do you participate in: walking frequency: daily ROS Constitutional Constitutional: Denies chills, fever(s), frequent falls, lethargy or weakness Eyes Eyes: Denies blind spots, change in vision or loss of vision ENT HEENT: Denies bleeding gums, hoarseness or sore throat Cardiovascular Cardiovascular: Reports numbness in extremities and weakness in extremities; Denies abdominal pain, bluish discoloration of hand/feet, chest pain with activity, claudication, cold extremities, cyanosis, dyspnea on exertion, erythema on extremities, irregular heart rhythm, leg edema or leg ulcers Respiratory/Chest Respiratory/Chest: Denies cough, excessive phlegm production, shortness of breath at rest, shortness of breath with exertion or wheezing Gastrointestinal Gastrointestinal: Denies anorexia, change in stool character, constipation, diarrhea, melena or rectal bleeding Genitourinary Genitourinary: Denies dysuria or hematuria Musculoskeletal Musculoskeletal: Denies abnormal gait Integumentary Integumentary: Denies erythema, non-healing lesions or wounds Neurologic Neurologic: Reports focal weakness, paresthesias and sensory deficit; Denies abnormal speech, headache(s) or loss of vision Hematologic/Lymphatic Hematologic/Lymphatic: Denies easy bleeding, easy bruising or lymphadenopathy Physical Exam Const alert, oriented x3, no apparent distress and healthy appearing General Appearance: cooperative; Negative for combative or lethargic Orientation / Consciousness: awake Exam Limitations: no limitations HEENT Head and Scalp: normocephalic and atraumatic Eyes EOMs intact bilaterally General Eye: normal appearance of both eyes Neck full ROM and thyroid normal General: trachea midline; Negative for tenderness Resp normal respiratory effort and no use of accessory muscles Effort and Inspection: Negative for labored, stridor or audible wheezes Cardio regular rate and regular rhythm Peripheral Pulses: brachial pulses present, radial pulses present, popliteal pulses present, posterior tibial pulses present and dorsalis pedis pulses present Back/Spine Cervical Spine: cervical ROM normal Extremity full ROM, normal capillary refill and no clubbing, cyanosis or edema Skin no rashes or lesions noted and no wounds Neuro oriented x3, CN's II-XII intact bilaterally, No no focal motor deficits and No no sensory deficits noted Psych thought process normal, cooperative, affect normal, speech normal and activity/motor behavior normal Lab / Micro Data 10/25/24 16:52 10/25/24 16:52 Charges/Coding Visit Charges Inpatient E&M: 45809 Init Hosp L3
--- NOTE | 2024-10-27 14:45 | PCM.DC.SUM ---
Providers Date of Admission: 10/25/24 Date of Discharge: 10/27/24 Primary Care Physician: Dr. Tong Santana, DO Consultations 10/25/24 20:38 Consult: Tele-Neurology Routine Consulting Provider: [facility] Reason for Consult: Acute Ischemic Stroke/TIA EMERGENT Consult: No MD Notified: Yes Date Notified: 10/25/24 Time Notified: 21:20 Method of Notification: [facility] Staff Notify [facility] of Tele-Neurology Consult: Yes 10/26/24 12:47 neuro [Consult: Tele-Neurology] Routine Consulting Provider: [facility] Reason for Consult: Frontal stroke EMERGENT Consult: No MD Notified: Yes Date Notified: 10/26/24 Time Notified: 12:47 Method of Notification: [facility] Staff Notify [facility] of Tele-Neurology Consult: Yes 10/27/24 11:22 Consult: Vascular Surgery Routine Consulting Provider: Dominic Garcia Reason for Consult: Right cervical stenosis EMERGENT Consult: No MD Notified: Yes Date Notified: 10/27/24 Time Notified: 11:22 Method of Notification: Text Reason For Visit: CVA Diagnosis Discharge Diagnosis (1) Cerebral infarction due to stenosis of right carotid artery: Status: Acute Code(s): I63.231 - Cerebral infarction due to unspecified occlusion or stenosis of right carotid arteries Plan 74-year-old female admitted to the hospital for concerns regarding left arm weakness that was outside the window. She has been further evaluated for her cerebrovascular episode. Her MRI brain shows that she has right frontal and parietal lobe infarct. Unfortunately she is out of the window. And cannot get thrombolytic therapy at this time. She endorses interruption of her DAPT due to dental extractions last month as well as ongoing dental treatment. These interruptions were more than a week long. She was evaluated by neurology yesterday, recommended increasing aspirin Plavix doses for 2 doses and also vascular surgery consult regarding revascularization. She is planned for endarterectomy as an outpatient in 1 week # Acute right frontal and parietal stroke # History of multiple strokes in the past # Carotid stenosis seen on imaging -[facility] recommendations are appreciated -Vascular surgery consult placed, plan for endarterectomy in 7 to 10 days -Outpatient physical therapy -Continue aspirin and Plavix, statin therapy -Change from simvastatin to atorvastatin daily #Hypertension -Continue home medications for now with amlodipine and hydralazine #Dyslipidemia - continue simvastatin Medications at Discharge Home Medications amlodipine 10 mg tablet 10 mg PO DAILY bp 09/12/18 aspirin 81 mg tablet,delayed release 81 mg PO DAILY heart 07/31/20 cholecalciferol (vitamin D3) 50 mcg (2,000 unit) capsule 50 mcg PO BID SUPPLEMENT 11/11/21 fluticasone propionate 50 mcg/actuation nasal spray,suspension 2 spray intranasal DAILY PRN Sinus Symptoms 11/11/21 carvedilol 3.125 mg tablet 3.125 mg PO BID #60 tabs 11/13/21 clopidogrel 75 mg tablet (Plavix) 75 mg PO DAILY blood clots 03/21/22 hydralazine 10 mg tablet 10 mg PO BID high BP 03/21/22 atorvastatin 20 mg tablet 40 mg (2 x 20 mg) PO QHS #60 tabs 10/27/24 Hospital Course Operations None Procedures None Summary of Care Provided Hospital Course: 74-year-old was admitted for concerns regarding left-sided weakness in the upper and lower extremities. MRI brain showed that she had a right frontal and temporal infarct which is suspected because of her right cervical stenosis. For this neurology and vascular surgery was consulted. Neurology recommended giving a loading dose of aspirin 375 and Plavix 150 on day 1 followed by Plavix 150 on day 2. Vascular surgery is planning for endarterectomy as an outpatient. She will also follow-up with outpatient physical therapy. Physical Exam Const alert, oriented x3 and no apparent distress General Appearance: cooperative and comfortable HEENT normocephalic Eyes PERRL Neck no lymphadenopathy Resp normal respiratory effort and no retractions Cardio regular rate and regular rhythm GI normal to inspection, nondistended, normoactive bowel sounds Extremity normal to inspection Skin no rashes or lesions noted Neuro oriented x3, CN's II-XII intact bilaterally and moves all extremities Neuro Narrative: Feels heaviness of her left arms and legs, with associated motor weakness. Weight / BMI Weight Weight: 161 lb 13.109 oz Body Mass Index (BMI) 22.6 ABG / Lab / Microbiology Data 10/25/24 16:52 10/25/24 16:52 D/C Instructions Discharge Diet: No restrictions Discharge Activity: Return to Normal Activity DC O2, CPAP, BIPAP Needs Home O2 Discharge instructions: No DC home with Oxygen: No Additional Instructions: Follow-up with physical therapy, vascular surgery Meaningful Use Info Meaningful Use Meaningful Use Diagnoses (Choose all that apply): Ischemic CVA CVA Therapy Assessed for PT,OT and/or ST?: Yes Ischemic Stroke Antithrombotic order at d/c?: Yes Dx of Atrial fib/flutter?: No Anticoagulant at discharge?: No Reason anticoagulant not ordered: Treatment not Indicated Statin Dosing Therapy Reference: STATIN DOSE THERAPY REFERENCE: * Patients > 75 years receive moderate or high dose statin therapy. * Patients 75 years or YOUNGER should receive HIGH intensity statin dose unless contraindicated. You will be required to document reason for non-treatment if statin daily dose does not meet guidelines. HIGH DOSE STATIN THERAPY DAILY Atorvastatin > than or = to 40 mg Rosuvastatin > than or = to 20 mg Amlodipine + Atorvastatin > than or = to 2.5/40 mg Ezetimibe + Simvastatin 10/80 mg Simvastatin 80mg Statins at discharge?: Yes Primary Dx Acute Ischemic CVA?: Yes IV thrombolytic ordered during stay?: No Reason IV thrombolytic not ordered: Medical Contraindication (out of therapeutic window period ) VTE Anticoag overlap given w/in hospital stay or rx'd at dc?: Yes Pt receive overlap for 5 days?: No Reason overlap not ordered, prescribed, or given for 5 days: Treatment Not Indicated Discharge Plan Admission Admit Date/Time: 10/25/24 19:25 Primary Reason for Your Visit: CVA Attending Provider: Vu Brantley Primary Care Provider: Tong Santana Consulting Providers: Dimas Dias; Huy Gaona; Goldie Ponce; Dede Clark; Maricruz Puentes; Garrett Ceron; Jazmine Dawn; Zaire Rico; Erik Alvarado; Roscoe Kincaid; Adwoa Beck; Enrique Benedict; Nisha Mckeon; Penny Ahumada; Tiffany Suarez; Ponce Sanchez; Khadijah Abdul; Trever Vizcarra; Rae Quintero; Thomas Patel; Dominic Gross; Dominic Garcia Discharge Orders/Prescriptions Prescriptions: New atorvastatin 20 mg Tablet 40 mg PO QHS Qty: 60 0RF Continued amlodipine 10 mg tablet 10 mg PO DAILY clopidogrel [Plavix] 75 mg tablet 75 mg PO DAILY Patient Comments: has not been taking for approx. 3-4 days d/t procedure. just took one today d/t symptoms 10/25/24 hydralazine 10 mg tablet 10 mg PO BID aspirin 81 MG tablet,delayed release (DR/EC) 81 mg PO DAILY fluticasone propionate 50 mcg/actuation spray,suspension 2 spray INTRANASAL DAILY PRN (Reason: Sinus Symptoms) Patient Comments: SHAKE LIQUID AND USE 2 sprays into each nostril once daily cholecalciferol (vitamin D3) 50 mcg (2,000 unit) Capsule 50 mcg PO BID carvedilol 3.125 mg Tablet 3.125 mg PO BID Qty: 60 0RF Discontinued simvastatin 40 mg tablet 40 mg PO QHS Patient Comments: usually takes in AM Referrals / Follow Up: Tong Santana DO [Primary Care Provider] - Disposition Disposition (needs filled in before D/C Order can be placed): Home, Self Care
[2024-10-27 14:59] VITALS: BP 136/61; PULSE 77; RESP 18; TEMP 36.9; O2SAT 96
== END 2024-10-27 15:49 | disposition home or self-care (01) | DRG 66 ==
LOC: ED 17:16 → PCU 20:09
PROVIDERS: Emergency Provider Emergency Medicine; PCP Family Medicine; Visit Provider Internal Medicine
DX: I63.231 Cerebral infarction due to unspecified occlusion or stenosis of right carotid arteries (principal); E78.5 Hyperlipidemia, unspecified; I10 Essential (primary) hypertension; I73.9 Peripheral vascular disease, unspecified; I25.10 Atherosclerotic heart disease of native coronary artery without angina pectoris; I25.2 Old myocardial infarction; Z87.891 Personal history of nicotine dependence; Z79.02 Long term (current) use of antithrombotics/antiplatelets; Z95.5 Presence of coronary angioplasty implant and graft; Z79.82 Long term (current) use of aspirin; Z86.73 Personal history of transient ischemic attack (TIA), and cerebral infarction without residual deficits
CPT/HCPCS: 70450; 70496; 70498; 70551; 71045; 80048; 80061; 85025; 85610; 85730; 92610; 93005; 93306; 94762; 97161; 97166; 97802; 99285; Q9967; A4216; J2405

== ENCOUNTER 2024-11-18 15:16 | Inpatient (IN) | payer MEDICARE, SELFPAY ==
[2022-09-07 10:28] VITALS: BMI 27.3
--- NOTE | 2024-10-31 15:06 | PAT.ANESEVAL ---
Pre-Assessment Diagnosis/Proposed Procedure Planned Operative Procedure(s): RIGHT CAROTID ENDARTERECTOMY Anesthesia History Anesthesia History - laboratory miller: Anesthesia History - laboratory miller Hx Hospitalization No 10/31/24 09:58 Any Problems With Anesthesia Yes: PONV 10/31/24 09:58 Cholinesterase deficiency No 10/31/24 09:58 You/Your Family Experience No 10/31/24 09:58 fever (hyperthermia) with Relationship Recent Exposure to Contagious No 09/07/22 10:28 Disease Does patient have nerve No 10/31/24 09:58 stimulator Patient instructed to have device shut off --Does patient have Pacemaker or ICD? When Was Last Pacemaker Check QUESTION #4 FULL TEXT: You/Your Family Experience fever (hyperthermia) with Anesthesia Last Oral Intake Last Oral intake: Last Oral Intake NPO since Meds taken in AM with sips of water? Meds patient instructed to take am of surgery PONV PONV - laboratory miller: PONV - laboratory miller Female Yes 10/31/24 09:58 HX of Motion Sickness Yes 10/31/24 09:58 HX of N/V After Surgery Yes 10/31/24 09:58 Non-Smoker Yes 10/31/24 09:58 Duration of Surgery greater Yes 10/31/24 09:58 than 60 minutes Number of Risk Factors 5 10/31/24 09:58 PONV Score Severe Risk 10/31/24 09:58 Height & Weight Height & Weight: Anesthesia: Height & Weight Height 5 ft 11 in 10/26/24 10:14 Respiratory Assessment Respiratory Assessment - laboratory miller: Respiratory Tract Infection Hx - laboratory miller Hx Respiratory Tract Infection Yes: COUGH IN FEB, CLEARED 10/31/24 09:58 UP SINCE END OF FEB STOP Sleep Apnea STOP Sleep Apnea - laboratory miller: STOP Sleep Apnea - laboratory miller Hx Hypertension Yes: CONTROLLED WITH MED 10/31/24 09:58 Hx Sleep Apnea No 10/31/24 09:58 CPAP BIPAP Do you snore loudly (louder No 10/31/24 09:58 than talking or can be heard Do you often feel tired/ No 10/31/24 09:58 fatigued/ sleepy during daytime? Has anyone observed you stop No 10/31/24 09:58 breathing during sleep? STOP Results Negative 10/31/24 09:58 QUESTION #5 FULL TEXT : Do you snore loudly (louder than talking or can be heard through closed doors)? Tobacco Use History Tobacco Use History - laboratory miller: Tobacco Use History - laboratory miller Tobacco Use Cigarettes 10/27/24 09:18 Smoking Status Former smoker 10/31/24 09:58 Hx Tobacco Use No 10/31/24 09:58 Years Smoking Packs Smoked per Day Smoking Cessation Date was No - quit smoking greater 10/31/24 09:58 within the last 15 years than 15 years ago Hx Smoking Cessation Date 08/28/69 10/31/24 09:58 Hx Smoking Cessation Counseling Hematologic Medial History Hematologic Hx - laboratory miller: Hematologic Medical Hx - assembler product Hx of Blood Transfusion No 10/31/24 09:58 Hx of Transfusion in last 3 No 10/31/24 09:58 Months Date of Last Transfusion (if within last 3 months) Ever experience any problems No 10/31/24 09:58 with transfusion(s)? Specify any problems Hx of Preganancy in last 3 N/A 10/31/24 09:58 Months Nurse Filling Out Transfusion NBUCHER 10/31/24 09:58 & Questions: Date: 10/31/24 10/31/24 09:58 Time: 10:00 10/31/24 09:58 Patient unable to answer at this time (ie. confused, unrespo /Reproduction History /Reproductive History - laboratory miller: /Reproductive Hx- laboratory miller Hx Now No 10/31/24 09:58 Gestational Age (in weeks): EDC: Hx Hx Para Hx Section SAB No 10/31/24 09:58 [facility] Medical History (Updated 10/31/24 @ 10:06 by Coby Fisher) Wears glasses Post-menopausal High cholesterol Gastric reflux History of echocardiogram Cardiology follow-up encounter History of heart attack Presence of tooth-root and mandibular implants Myocardial infarction Hyperlipidemia Atherosclerotic heart disease of [place] coronary artery without angina pectoris Essential hypertension Former smoker Carotid stenosis, bilateral Cutaneous skin tags Seborrheic keratosis Vertigo Gastrointestinal complaints Home Medications ?Medication ?Instructions ?Recorded ?Last Taken ?Type amlodipine 10 mg tablet 10 mg PO DAILY bp 09/12/18 10/25/24 08:52 History aspirin 81 mg tablet,delayed 81 mg PO DAILY heart 07/31/20 10/25/24 08:53 History release cholecalciferol (vitamin D3) 50 50 mcg PO BID SUPPLEMENT 11/11/21 10/25/24 14:53 History mcg (2,000 unit) capsule fluticasone propionate 50 2 spray intranasal DAILY PRN Sinus 11/11/21 Unknown History mcg/actuation nasal Symptoms spray,suspension carvedilol 3.125 mg tablet 3.125 mg PO BID blood pressure #60 11/13/21 10/25/24 08:53 Rx tabs clopidogrel 75 mg tablet (Plavix) 75 mg PO DAILY blood clots 03/21/22 10/25/24 08:54 History hydralazine 10 mg tablet 10 mg PO BID high BP 03/21/22 10/25/24 08:54 History simvastatin 40 mg tablet 40 mg PO QPM HLD 10/31/24 Unknown History Allergy/AdvReac Type Severity Reaction Status Date / Time hydrochlorothiazide Allergy Severe Blood Verified 10/31/24 09:55 Pressure Sporadic Family History Mother Cancer Brother Cancer Surgical History (Updated 10/31/24 @ 10:06 by Coby Fisher) History of cardiac catheterization S/P cataract extraction History of carotid endarterectomy (07/2020) History of sinus surgery History of cholecystectomy History of coronary artery stent placement (11/12/21) Social History Smoking Status: Former smoker alcohol intake: never substance use type: does not use what type of physical activity do you participate in: walking frequency: daily Audit: Pertinent Findings Pertinent Findings EKG Perinent findings: October 26, 2024. Normal sinus rhythm. Left axis deviation. Inferior infarct age undetermined. Echo (EF%) pertinent findings: October 26, 2024. Ejection fraction is 75%. There is no aortic stenosis. Heart catheterization pertinent findings: November 12, 2021. Left ventricular ejection fraction is 70%. 1. Mid LAD 90% stenosis immediately proximal and distal to the prior stent which is widely patent itself. Diagonal 1 is 90% stenosis at the ostium. Mid LAD drug-eluting stent placed with Post stenosis 0%. First diagonal 2. Circumflex mild irregularities. 3. RCA has 80% stenosis at the ostium 80% stenosis at the proximal RCA. Drug-eluting stent with pre and post dilation. Post stenosis is 0% Consult pertinent findings: She denies 2023. Marybeth LEES. 1. Coronary artery disease. Status post non-STEMI with subsequent stent placement to the mid LAD and proximal RCA in October 2021. Currently entirely asymptomatic and is fairly active. Continue current medication. Continue Plavix long-term. 2. Carotid artery disease. Carotid Dopplers were good. 3. Hypertension-blood pressures are volatile. She is tolerating only low-dose carvedilol, amlodipine and hydralazine at this time. Recommendation Anesthesia Recommendation Anesthesia recommendation: OPTIMIZED for anesthesia
[2024-11-05 08:24] VITALS: BP 144/70; PULSE 87; RESP 18; TEMP 37.1; O2SAT 99; BMI 24.8
[2024-11-05] MEDS: 0.9% Normal Saline (1000mL) 1,000 ML 15 ML IV (08:57)
--- NOTE | 2024-11-05 09:30 | NURSING ---
Pt to be rescheduled for tomorrow due to emerent case.
[2024-11-18] VITALS (21 sets, daily range): BP systolic 121–177; BP diastolic 55–74; PULSE 75–90; RESP 12–16; TEMP 36.2–37.1; O2SAT 91–100; BMI 25.5
[2024-11-18] MEDS: 0.9% Normal Saline (1000mL) 1,000 ML 15 ML IV (10:57)
--- NOTE | 2024-11-18 11:38 | PRE.ANES_ITS ---
ASA Classification* ASA Classification ASA Classification: 3 Assessment & Plan Anesthesia* Anesthesia Assessment Anesthesia Assessment: Discussed sedation and/or anesthesia options, risks, benefits, and alternatives with patient/parents/legal guardian/POA. Questions invited. The patient/parents/legal guardian/POA seems to understand and agrees to proceed with anesthesia plan. Reviewed the physical assessment, medical history, allergy history and patient home medications list prior to surgery/procedure/anesthetic and documented any changes. Performed airway and anesthesia risk assessments. Anesthesia Type Anesthesia Type: General (Arterial line for surgery.) History Source History Obtained from:: Patient and Chart Anesthesia Focused Assessment* Temperature: 98.7 F Pulse Rate: 79 Blood Pressure: 153/74 Respiratory Rate: 16 Pulse Ox: 98 Oxygen Delivery Method: Room Air Airway Assessment Mouth opens: >3 cm Mallampati Score: IV Teeth Condition: Caps/Crowns (Patient has several caps/Crowns. They are all tight.) Neck Range of motion (ROM): Limited ROM (Slight decrease in extension) Focused Labs Anesthesia Preop lab: CBC WBC 15.0 K/mm3 (4.4-11.0) H 10/25/24 16:52 5 RBC 4.81 M/mm3 (4.2-5.4) 10/25/24 16:52 10/25/24 Hgb 15.0 g/dL (12.0-15.0) 10/25/24 16:52 10/25/24 Hct 45.6 % (37-47) 10/25/24 16:52 10/25/24 Plt Count 485 K/mm3 (150-450) H 10/25/24 16:52 10/25/24 CHEMISTRY Potassium 4.1 mmol/L (3.3-5.1) 10/25/24 16:52 10/25/24 Sodium 144 mmol/L (133-145) 10/25/24 16:52 10/25/24 BUN 13 mg/dL (4-19) 10/25/24 16:52 10/25/24 Creatinine 0.80 mg/dL (0.70-1.20) 10/25/24 16:52 10/25/24 Glucose 92 mg/dL (70-99) 10/25/24 16:52 10/25/24 TSH 1.11 uIU/mL (0.358-3.74) 12/14/21 15:22 COAG PT 12.9 SECONDS (11.7-14.9) 10/25/24 16:52 Pre-Assessment Diagnosis/Proposed Procedure Planned Operative Procedure(s): RIGHT CAROTID ENDARTERECTOMY Anesthesia History 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 When Was Last Pacemaker Check QUESTION #4 FULL TEXT: You/Your Family Experience fever (hyperthermia) with Anesthesia Last Oral Intake Last Oral intake: Last Oral Intake NPO since 00:00 11/18/24 10:51 Meds taken in AM with sips of Yes 11/18/24 10:51 water? Meds patient instructed to see chart 11/18/24 10:51 take am of surgery PONV PONV - construction sales representative: PONV - construction sales representative Female Yes 11/11/24 14:09 HX of Motion Sickness Yes 11/11/24 14:09 HX of N/V After Surgery Yes 11/11/24 14:09 Non-Smoker Yes 11/11/24 14:09 Duration of Surgery greater Yes 11/11/24 14:09 than 60 minutes Number of Risk Factors 5 11/11/24 14:09 PONV Score Severe Risk 11/11/24 14:09 Height & Weight Height & Weight: Anesthesia: Height & Weight Height 5 ft 6 in 11/18/24 10:51 Weight: 71.9 kg 11/18/24 10:51 Body Mass Index (BMI) 25.5 11/18/24 10:51 Respiratory Assessment Respiratory Assessment - construction sales representative: Respiratory Tract Infection Hx - construction sales representative Hx Respiratory Tract Infection No 11/11/24 14:09 STOP Sleep Apnea STOP Sleep Apnea - construction sales representative: STOP Sleep Apnea - construction sales representative Hx Hypertension Yes 11/11/24 14:09 Hx Sleep Apnea No 11/11/24 14:09 CPAP BIPAP Do you snore loudly (louder No 11/11/24 14:09 than talking or can be heard Do you often feel tired/ No 11/11/24 14:09 fatigued/ sleepy during daytime? Has anyone observed you stop No 11/11/24 14:09 breathing during sleep? STOP Results Negative 11/11/24 14:09 QUESTION #5 FULL TEXT : Do you snore loudly (louder than talking or can be heard through closed doors)? 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 Specify any problems Hx of Preganancy in last 3 No 11/11/24 14:09 Months Nurse Filling Out Transfusion STEPHANIE 11/11/24 14:09 & Questions: Date: 11/11/24 11/11/24 14:09 Time: 14:09 11/11/24 14:09 Patient unable to answer at this time (ie. confused, unrespo /Reproduction History /Reproductive History - construction sales representative: /Reproductive Hx- construction sales representative Hx Now No 11/11/24 14:09 Gestational Age (in weeks): EDC: Hx Hx Para Hx Section SAB No 11/11/24 14:09 Active Medications Active Medications: Current Medications Generic Name Dose Route Start Last Admin Trade Name Freq PRN Reason Stop Dose Admin Cefazolin Sodium 2 gm/ N/A 20 mls @ 400 mls/hr 11/18/24 12:20 IV 11/18/24 12:22 PREOP ONE Sodium Chloride 1,000 mls @ 15 mls/hr 11/18/24 10:20 11/18/24 10:57 IV 11/23/24 23:39 15 mls/hr .Q48H AUREA Administration PFSH Medical History (Updated 11/11/24 @ 14:08 by Lolly Salinas) Vertigo Wears glasses Post-menopausal High cholesterol Gastric reflux History of echocardiogram Cardiology follow-up encounter History of heart attack Presence of tooth-root and mandibular implants Myocardial infarction Hyperlipidemia Atherosclerotic heart disease of [place] coronary artery without angina pectoris Essential hypertension Former smoker Carotid stenosis, bilateral Cutaneous skin tags Seborrheic keratosis Vertigo Gastrointestinal complaints Home Medications ?Medication ?Instructions ?Recorded ?Last Taken ?Type amlodipine 10 mg tablet 10 mg PO DAILY bp 09/12/18 0 11/05/24 History aspirin 81 mg tablet,delayed 81 mg PO DAILY heart 12/1511/18/24 History release cholecalciferol (vitamin D3) 50 50 mcg PO BID SUPPLEME NT 11/11/21 11/17/24 History mcg (2,000 unit) capsule fluticasone propionate 50 2 spray intranasal DAILY PRN Sinus 11/11/21 11/17/24 History mcg/actuation nasal Symptoms spray,suspension carvedilol 3.125 mg tablet 3.125 mg PO BID blood press ure #60 11/13/21 11/18/24 Rx tabs clopidogrel 75 mg tablet (Plavix) 75 mg PO DAILY blood clots 03/21/22 11/18/24 History hydralazine 10 mg tablet 10 mg PO BID high BP 03/21/ 2 11/18/24 History simvastatin 40 mg tablet 40 mg PO QPM HLD 10/31/24 History Allergy/AdvReac Type Severity Reaction Status Date / Time hydrochlorothiazide Allergy Severe Blood Verified 11/11/24 14:13 Pressure Sporadic Family History Mother Cancer Brother Cancer Surgical History (Updated 11/04/24 @ 00:03 by Bonnie Dan) History of cardiac catheterization S/P cataract extraction History of carotid endarterectomy (07/2020) History of sinus surgery History of cholecystectomy History of coronary artery stent placement (11/12/21) Social History Smoking Status: Former smoker alcohol intake: never substance use type: does not use what type of physical activity do you participate in: walking frequency: daily Review of Systems (Anesthesia) ROS Narrative System reviewed and no additional complaints, except as documented.
--- NOTE | 2024-11-18 11:39 | PCM.HP.BLA ---
History and Physical HPI Narrative HPI Narrative: SYBIL SUERO, is a 74 F who presents with left upper and lower extremity weakness and paresthesias that began abruptly on 10/25 prompting her to seek medical attention. She was found to have 2 small punctate right hemispheric infarcts and right internal carotid artery stenosis. She has known history of carotid stenosis with a prior left carotid endarterectomy several years prior and had been followed with serial duplex most recent imaging in October 2023. This had revealed plaque but less than 50% stenosis at the time. She is maintained on aspirin and Plavix long-term due to significant coronary artery and peripheral vascular disease. She had been taken off of this temporarily for a planned dental procedure and had been off for approximately 10 days prior to her neurologic symptoms. She had no prior similar events on the left however she had a TIA in the past affecting the right side of her body prior to her left carotid endarterectomy. She states that her left leg still takes some increased focus to lift and walk though it is improved since admission. Also her left arm is improved and she is now able to move her hand though she still has paresthesias and some weakness. She denies any prior neck radiation or limited range of motion/cervical fusions; Only surgery on her neck with the left carotid endarterectomy. [facility] Medical History Presence of tooth-root and mandibular implants Myocardial infarction Hyperlipidemia Atherosclerotic heart disease of [place] coronary artery without angina pectoris Essential hypertension Former smoker Carotid stenosis, bilateral Cutaneous skin tags Seborrheic keratosis Vertigo Gastrointestinal complaints Home Medications ?Medication ?Instructions ?Recorded ?Last Taken ?Type amlodipine 10 mg tablet 10 mg PO DAILY bp 09/12/18 10/25/24 08:52 History simvastatin 40 mg tablet 40 mg PO QHS cholesterol 09/12/18 10/25/24 08:55 History aspirin 81 mg tablet,delayed 81 mg PO DAILY heart 07/31/20 10/25/24 08:53 History release cholecalciferol (vitamin D3) 50 50 mcg PO BID SUPPLEMENT 11/11/21 10/25/24 14:53 History mcg (2,000 unit) capsule fluticasone propionate 50 2 spray intranasal DAILY PRN Sinus 11/11/21 Unknown History mcg/actuation nasal Symptoms spray,suspension carvedilol 3.125 mg tablet 3.125 mg PO BID #60 tabs 03/19/22 02/28/25 08:53 Rx clopidogrel 75 mg tablet (Plavix) 75 mg PO DAILY blood clots 03/21/22 10/25/24 08:54 History hydralazine 10 mg tablet 10 mg PO BID high BP 03/21/22 10/25/24 08:54 History Allergy/AdvReac Type Severity Reaction Status Date / Time hydrochlorothiazide Allergy Severe Blood Verified 10/16/24 10:26 Pressure Sporadic Family History Mother CancerBrother Cancer Surgical History S/P cataract extraction History of carotid endarterectomy (07/2020) History of sinus surgery History of cholecystectomy History of coronary artery stent placement (11/12/21) Social History Smoking Status: Former smoker alcohol intake: never substance use type: does not use what type of physical activity do you participate in: walking frequency: daily ROS Constitutional Constitutional: Denies chills, fever(s), frequent falls, lethargy or weakness Eyes Eyes: Denies blind spots, change in vision or loss of vision ENT HEENT: Denies bleeding gums, hoarseness or sore throat Cardiovascular Cardiovascular: Reports numbness in extremities and weakness in extremities; Denies abdominal pain, bluish discoloration of hand/feet, chest pain with activity, claudication, cold extremities, cyanosis, dyspnea on exertion, erythema on extremities, irregular heart rhythm, leg edema or leg ulcers Respiratory/Chest Respiratory/Chest: Denies cough, excessive phlegm production, shortness of breath at rest, shortness of breath with exertion or wheezing Gastrointestinal Gastrointestinal: Denies anorexia, change in stool character, constipation, diarrhea, melena or rectal bleeding Genitourinary Genitourinary: Denies dysuria or hematuria Musculoskeletal Musculoskeletal: Denies abnormal gait Integumentary Integumentary: Denies erythema, non-healing lesions or wounds Neurologic Neurologic: Reports focal weakness, paresthesias and sensory deficit; Denies abnormal speech, headache(s) or loss of vision Hematologic/Lymphatic Hematologic/Lymphatic: Denies easy bleeding, easy bruising or lymphadenopathy Physical Exam Const alert, oriented x3, no apparent distress and healthy appearing General Appearance: cooperative; Negative for combative or lethargic Orientation / Consciousness: awake Exam Limitations: no limitations HEENT Head and Scalp: normocephalic and atraumatic Eyes EOMs intact bilaterally General Eye: normal appearance of both eyes Neck full ROM and thyroid normal General: trachea midline; Negative for tenderness Resp normal respiratory effort and no use of accessory muscles Effort and Inspection: Negative for labored, stridor or audible wheezes Cardio regular rate and regular rhythm Peripheral Pulses: brachial pulses present, radial pulses present, popliteal pulses present, posterior tibial pulses present and dorsalis pedis pulses present Back/Spine Cervical Spine: cervical ROM normal Extremity full ROM, normal capillary refill and no clubbing, cyanosis or edema Skin no rashes or lesions noted and no wounds Neuro oriented x3, CN's II-XII intact bilaterally, No no focal motor deficits and No no sensory deficits noted Psych thought process normal, cooperative, affect normal, speech normal and activity/motor behavior normal Lab / Micro Data 10/25/24 16:52 10/25/24 16:52 Plan- right carotid endarterectomy
--- NOTE | 2024-11-18 12:20 | PLAQ_PTH ---
PATIENT: SYBIL JOSHI LOC: ICU U#:[id number] AGE/SX: 74/F ROOM: [place] [address] RE11/18/[address]: Dr. Dominic Garcia MD : [id number] BED: 1 DIS: 11/19/2024 SPEC #: [id number] RECD: 11/19/24 10:21 STATUS: DANI REGenny #: [id number] ELENA: 11/18/24 12:[address]: Dominic Garcia DEPT: SURGICAL PATHOLOGY RECD BY: Gopal Duran ENTERED: 11/19/24 10:21 SP TYPE: PLAQUE OTHR DR: Dr. Tong Santana, DO Tissues: A - PLAQUE Procedures: Surgery Specimen Level III HEADER OPERATION: Right carotid endarterectomy PRE-OP DIAGNOSIS: Cerebral infarction due to stenosis of right carotid artery TISSUE SUBMITTED: A- Right carotid plaque MICROSCOPIC DIAGNOSIS A. RIGHT CAROTID ARTERY, PLAQUE, ENDARTERECTOMY: * FIBROINTIMAL HYPERPLASIA WITH HISTIOCYTES AND FOCAL CALCIFICATION, CONSISTENT WITH ATHEROSCLEROTIC PLAQUE. GROSS DESCRIPTION Received in formalin labeled, Sybil Joshi, and designated right carotid plaque, is a yellow-echeverria cylindrical segment of atheromatous plaque and a separate echeverria, irregularly-shaped fragment of plaque material. The cylindrical segment measures 2.5 cm long by 0.6 cm in diameter and the smaller fragment measures 0.7 x 0.3 x 0.2 cm. Sectioning through the cylindrical fragment shows a gritty cut surface with possible areas of calcification. The entire smaller fragment and four cross-sections of the cylindrical fragment are submitted in one cassette. LAURA 11/19/2024 CPT:11431
[2024-11-18] MEDS: Cefazolin 2 GM in Syringe IV (12:55)
[2024-11-18] MEDS: Heparin 10,000 UNITS/10 ML Vial 10000 UNITS (13:27)
[2024-11-18] MEDS: Protamine Sulfate 50 MG/5 ML Vial IV (15:01)
[2024-11-18 15:02] LABS: ACT Activated Clotting Time 291 sec (74-137)
[2024-11-18 15:02] LABS: ACT Activated Clotting Time 233 sec (74-137)
[2024-11-18 15:02] LABS: ACT Activated Clotting Time 141 sec (74-137)
[2024-11-18 15:03] LABS: ACT Activated Clotting Time 251 sec (74-137)
[2024-11-18] MEDS: Bupivacaine Mpf 0.5% 30 ML VIAL (15:15)
--- NOTE | 2024-11-18 15:26 | PCM.OPRPT ---
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: Yes Shipyard Supervisor: Elisa Almendarez Tasks completed by certified surgical tech/first assistant: Opening, Closing, Opening & closing, Hemostasis: Tie and Retracting Type of Anesthesia: General RN Documented Start/Stop Times: Operation Date: 11/18/24 12:20 Case Time Into Pre-Op 11/18/24 10:17 Anesthesia Start 11/18/24 12:19 Into Room 11/18/24 12:19 Procedure Start 11/18/24 13:02 Procedure End 11/18/24 15:28 Anesthesia End 11/18/24 15:40 Out of Room 11/18/24 15:40 Into Recovery 11/18/24 15:45 Out of Recovery 11/18/24 17:35 Out of Pre-Op Procedure Start Time: 13:00 Procedure Stop Time: 15:30 Select all DRAINS/GRAFTS/IMPLANTS that apply: Graft Graft details: bovine pericardial patch Estimated Blood Loss: 25 Specimen collected: Yes Description of specimen(s) removed: plaque Description of surgery: HPI: Patient is a 74-year-old female with symptomatic right internal carotid artery stenosis with recent infarct. She is taken now for carotid endarterectomy for stroke risk reduction. Description of procedure: Upon obtaining form consent and verification correct patient procedure site patient taken to the operating where she was placed under general anesthesia. She was then positioned prepped and draped in usual sterile fashion and timeout was performed. Oblique incision made anterior to the sternocleidomastoid mobilized quite was dissect down through subcutaneous tissue. The platysma was then divided and self-retaining retractors put in position with further dissection carried down to the anterior border the sternocleidomastoid. This was dissected free and retracted posterior laterally exposing the carotid sheath. Sharp dissection was then used dissect free the jugular vein with the facial vein identified, ligated with silk ties and divided. The jugular vein was then retracted laterally exposing the carotid vessels. Sharp dissection used to dissect free the proximal common carotid artery with care taken to identify and protect the vagus nerve which was then a lateral position. A right angle was used to place a vessel loop on the proximal common carotid artery and the vagus nerve carefully dissected free to determine if any anterior branches were present the could represent the superior laryngeal. There were no branches that went anterior to the carotid and we did visualize what was likely the superior laryngeal in his normal anatomic position in the superior aspect of the surgical field running posterior to the carotid. Sharp dissection was then used to dissect free the internal carotid artery distally beyond the area of palpable and visible plaque with care taken to identify and protect the hypoglossal nerve. A right angle was used to place vessel loop around the distal internal carotid artery and the patient was then heparinized allowed circulate for 3 minutes. Subsequent heparin dosing was then performed based on ACT results. Sharp dissection was then used dissect free the external carotid artery and a writing was placed vascular. Vessels were then occluded with Vesseloops first the internal followed by the common and the external. A longitudinal arteriotomy was then created with 11 blade on the distal common carotid artery and extended with Estevez scissors onto the internal carotid artery beyond the plaque. A 10 [place] shunt was then placed first distally in the internal carotid artery allowed to backbleed before placing proximally in the common carotid artery. The shunt was interrogated with Doppler found to be patent with low resistance signal. We then performed her endarterectomy with a freer elevator with satisfactory endpoint distally on the internal carotid artery and no endarterectomy required of the origin of the external carotid artery. The lumen was then flushed with heparinized saline to clear debris in the distal endpoint tacked with 7-0 Prolene interrupted sutures. A bovine pericardial patch was then brought in field and secured in position using a 6-0 Prolene in a running fashion. Prior to completing the suture line the shunt was removed and the vessels were backbled. After completing the suture line the internal carotid artery clamp was released allowing it to backbleed into the bifurcation and the vessel was reoccluded at its origin. Clamps were then released from the external and common carotid artery allowing 10 heartbeats of antegrade flow to flush into the external carotid artery before reestablishing antegrade flow into the internal carotid artery. After clamps removed satisfactory hemostasis was noted and the vessels were interrogated with Doppler. The internal carotid arteries patent with low resistance signal in the external carotid artery patent with appropriate signal. Heparin was then reversed with protamine and the incision inspected for hemostasis. A 19 [place] channel REYNA was then placed via separate stab incision and incision closed with 2-0 Vicryl, 3-0 Vicryl, 4 Monocryl and Dermabond for the skin. At the inclusion of case the patient was awakened anesthesia moving all extremities command with cranial nerves intact. She was taken to the recovery room with anticipated mission to the intensive care unit for hemodynamic and neurologic monitoring. Surgical Findings: see above Complications Complications: No
--- NOTE | 2024-11-18 16:00 | PCM.POST.ANE ---
Anesthesia: Postop Eval I Current Vital Signs Temperature: 97.1 F Pulse Rate: 84 Blood Pressure: 149/60 Respiratory Rate: 16 Pulse Ox: 96 Oxygen Delivery Method: Nasal Cannula Oxygen Flow Rate (L/min): 4 Assessment Airway patent: Yes Spontaneous unlabored respirations: Yes Mental status: Awake nausea: No Vomiting: No Anesthesia Complication: No Fluid Hydration Crystalloid volume administer (ml): 2,300 Total IV fluid infused: 2,300 Progress Note Post-operative progress note: patient awake following commands pedal pushes and pulls strong equal and equal strong hand grasp bilateral Anesthesia document: Postop Eval 1 completed: Yes
[2024-11-18] MEDS: Carvedilol 3.125 MG TABLET PO (18:22)
[2024-11-18] MEDS: hydrALAZINE 10 MG Tablet PO (18:41)
--- NOTE | 2024-11-18 19:06 | POSTOPAN2_ITS ---
Anesthesia Postop Eval I Sum Postop Eval Completion status Anesthesia document: Postop Eval 1 completed: Yes Anesthesia Postop Eval I Summary Anesthesia Postop Eval I Summary: Anesthesia Postop Eval I: Assessment Summary Airway patent Yes 11/18/24 16:01 [email or web address] [email or web address] Spontaneous unlabored Yes 11/18/24 16:01 [email or web address] [email or web address] respirations Mental status Awake 11/18/24 16:01 [email or web address] [email or web address] nausea No 11/18/24 16:01 [email or web address] [email or web address] Vomiting No 11/18/24 16:01 [email or web address] [email or web address] Anesthesia Postop Eval I: Fluid Summary Crystalloid volume administer 2,300 11/18/24 16:01 [email or web address] [email or web address] (ml) Colloids volume administered ( ml) Blood Product volume administered (ml) Total IV fluid infused 2,300 11/18/24 16:01 [email or web address] [email or web address] Anesthesia Postop Eval I: Summary Notes Anesthesia Complication No 11/18/24 16:01 [email or web address] [email or web address] Anesthesia Complication Comment: Post-operative progress note patient awake 11/18/24 16:01 [email or web address] [email or web address] following commands pedal pushes and pulls strong equal and equal strong hand grasp bilateral Anesthesia: Postop Eval II Evaluation Mental status: Awake and Calm Pain Level: 1 nausea: No Vomiting: No Complications Anesthesia Complication: No
--- NOTE | 2024-11-18 19:06 | PCM.POSTANE2 ---
Anesthesia Postop Eval I Sum Postop Eval Completion status Anesthesia document: Postop Eval 1 completed: Yes Anesthesia Postop Eval I Summary Anesthesia Postop Eval I Summary: Anesthesia Postop Eval I: Assessment Summary Airway patent Yes 11/18/24 16:01 [email or web address] Spontaneous unlabored Yes 11/18/24 16:01 [email or web address] [email or web address] respirations Mental status Awake 11/18/24 16:01 [email or web address] [email or web address] nausea No 11/18/24 16:01 [email or web address] [email or web address] Vomiting No 11/18/24 16:01 [email or web address] Anesthesia Postop Eval I: Fluid Summary Crystalloid volume administer 2,300 11/18/24 16:01 [email or web address] (ml) Colloids volume administered ( ml) Blood Product volume administered (ml) Total IV fluid infused 2,300 11/18/24 16:01 [email or web address] Anesthesia Postop Eval I: Summary Notes Anesthesia Complication No 11/18/24 16:01 [email or web address] Anesthesia Complication Comment: Post-operative progress note patient awake 11/18/24 16:01 [email or web address] following commands pedal pushes and pulls strong equal and equal strong hand grasp bilateral Anesthesia: Postop Eval II Evaluation Mental status: Awake and Calm Pain Level: 1 nausea: No Vomiting: No Complications Anesthesia Complication: No
[2024-11-18] MEDS: Cefazolin 1 GM/50 ML BAG IV (20:26)
[2024-11-18] MEDS: Ondansetron 4 MG/2 ML Vial IV (21:18)
[2024-11-19] VITALS (17 sets, daily range): BP systolic 115–150; BP diastolic 61–79; PULSE 79–95; RESP 13–19; TEMP 36.3–36.8; O2SAT 94–98; BMI 26.0
[2024-11-19 04:58] LABS: Absolute Lymphocyte Count 1.71 X10^3/uL (0.83-4.51); Absolute Neutrophil Count 16.9 X10^3/uL (2.0-7.7); Basophil# 0.04 X10^3/uL; Basophil% 0.2 % (0-1); Hematocrit 39.9 % (37-47); Hemoglobin 13.1 g/dL (12.0-15.0); Lymphocyte # 1.71 X10^3/ul (0.83-4.51); Lymphocyte % 8.3 % (19-41); Mean Corp Hgb Conc 32.8 g/dL (32-36); Mean Corpuscular Hgb 31.5 pg (27.0-32.0); Mean Corpuscular Volume 95.9 fL (81-99); Mean Platelet Vol. 9.2 fl (6.2-12.0); Monocyte# 1.69 X10^3/uL; Monocyte% 8.2 % (0-10); NRBC Flagged by Analyzer 0 % (0-5); Neutrophil % 82.4 % (47-70); POSITIVE DIFFERENTIAL YES; Platelet Count 382 K/mm3 (150-450); RBC Distribution Width CV 13.2 % (11.6-14.6); RBC Distribution Width SD 47.2 fl (35.1-43.9); Red Blood Count 4.16 M/mm3 (4.2-5.4); White Blood Count 20.5 K/mm3 (4.4-11.0)
[2024-11-19] MEDS: Cefazolin 1 GM/50 ML BAG IV (05:09)
[2024-11-19] MEDS: Ondansetron 4 MG/2 ML Vial IV (05:09)
[2024-11-19 05:37] LABS: Differential Indicated SCAN CRITERIA MET
[2024-11-19 06:08] LABS: Differential Comment SCANNED; Pathologist Review May foll
[2024-11-19] MEDS: Carvedilol 3.125 MG TABLET PO (08:24)
[2024-11-19] MEDS: Clopidogrel Bisulfate 75 MG Tablet PO (08:25)
[2024-11-19] MEDS: Cholecalciferol (VIT D3) 25 MCG TABLET (1,000 UNITS) 50 MCG PO (08:25)
[2024-11-19] MEDS: Aspirin E.C. 81 MG Tablet PO (08:25)
[2024-11-19] MEDS: hydrALAZINE 10 MG Tablet PO (08:32)
--- NOTE | 2024-11-19 09:48 | PCM.PN.SRG ---
Subjective Subjective I saw Tiffanie this morning, she was resting comfortably in bed. She reports some discomfort at the incision site from the dressing tape tugging on her skin. She reports a mild generalized headache. She denies any new/worsening vision changes, weakness, numbness/paresthesias, hoarseness, difficulty moving her tongue around her mouth. She complains of some nausea, she reports she gets this every time she has anesthesia. She was hypertensive postoperatively yesterday, received labetalol and then was hypotensive. This hypotension responded to fluid bolus, did not require any pressors to correct. Blood pressures are stable, slightly elevated this morning. Hgb stable. Mild output from REYNA drain. Objective Data Objective Data Vital Signs: Vital Signs Temp Pulse Resp BP Pulse Ox O2 Del Method O2 Flow Rate 98.1 F 92 15 146/72 H 97 Room Air 4 11/19/24 07:00 11/19/24 08:32 11/19/24 08:00 11/19/24 08:00 11/19/24 08:00 11/19/24 08:00 11/18/24 17:15 Oxygen Flow Rate (L/min) 4 Oxygen Delivery Method Room Air Weight: 161 lb 6.054 oz Body Mass Index (BMI) 26.0 Intake & Output: Intake and Output for Last 24 Hours 11/17/24 11/18/24 11/19/24 23:59 23:59 23:59 Intake Total 3977.5 / 3977.5 780 / 780 Output Total 808 / 808 1570 / 1570 Balance 3169.5 / 3169.5 -790 / -790 Lab / Micro Data 11/19/24 04:43 Labs: Laboratory Results - last 24 hr 11/18/24 10:45: Blood Type B POSITIVE, Antibody Screen NEGATIVE 11/18/24 11:55: Activated Clotting Time 141 H 11/18/24 12:33: Activated Clotting Time 291 H 11/18/24 13:11: Activated Clotting Time 233 H 11/18/24 13:50: Activated Clotting Time 251 H 11/19/24 04:43: WBC 20.5 H, RBC 4.16 L, Hgb 13.1, Hct 39.9, MCV 95.9, MCH 31.5, MCHC 32.8, RDW Std Deviation 47.2 H, RDW Coeff of Rolanda 13.2, Plt Count 382, MPV 9.2, Immature Gran % (Auto) 0.900, Neut % (Auto) 82.4 H, Lymph % (Auto) 8.3 L, [place] % (Auto) 8.2, Eos % (Auto) 0.0, Baso % (Auto) 0.2, Absolute Neuts (auto) 16.9 H, Absolute Lymphs (auto) 1.71, Nucleated RBC % 0, Differential Comment SCANNED, Diff Path Review December Physical Exam Const alert, oriented x3 and no apparent distress General Appearance: cooperative and comfortable HEENT head/scalp atraumatic, hearing grossly normal bilaterally, external ears normal and external nose normal Eyes General Eye: normal appearance of both eyes Neck Neck Narrative: R neck incision site with skin glue intact, no dehiscence, erythema, ecchymosis. Mild edema, soft to palpation. REYNA drain with minimal serosanguineous drainage. Resp normal respiratory effort, normal air movement, no retractions and no use of accessory muscles Effort and Inspection: able to speak in complete sentences; Negative for labored, grunting or stridor Cardio Rate: regular rate Rhythm: regular rhythm Extremity no clubbing, cyanosis or edema Skin no rashes or lesions noted Neuro oriented x3, CN's II-XII intact bilaterally, moves all extremities and no sensory deficits noted Speech: speech normal Psych mental status grossly normal Appearance: grossly normal Attitude: calm and engaged Activity / Motor Behavior: appropriate eye contact Assessment & Plan Assessment/Plan (1) Cerebral infarction due to stenosis of right carotid artery: PLAN: She is POD#1 from R CEA. I removed the REYNA drain this morning, she tolerated this well. No signs/symptoms of hematoma. Pain is well controlled with tylenol. Discontinue gibbons. Discontinue arterial line. Progress to normal diet. Plan to ambulate and get up to chair with nursing or PT later this morning. Anticipate discharge this afternoon.
--- NOTE | 2024-11-19 10:06 | CASEMGMT ---
Readmission Note: Index Admission: 10/25-10/27/24. Dx: CVA Current: 11/18/24. Dx: Rt Carotid Endarterectomy From index admission, the pt was discharged home with her with [facility] and scheduled for a follow up Rt Carotid Endarterectomy. This RN CM to pt room at this time. Pt is A&Ox4 and is sitting up comfortably in the bed. Pt states that she did not take the new Rx for Atorvastatin because it makes her sick. Pt states that she followed up with her manager integration about this and got her medications better managed. Pt states that she did not have time to see her PCP between hospitalizations. Pt also reports that she did not go to [facility] and states, I did not feel like I needed it. Pt states that she does still have the Rx for this in case she changes her mind. Moving forward, pt plans to DC home with her once she is medically ready. Pt denies HHC needs. Pt states that she is independent and feels safe returning home with her without any additional needs. Pt denies further questions or concerns at this time. Talon CRYSTAL RN, CM
--- NOTE | 2024-11-19 11:48 | DS.PCM_ITS ---
Providers Date of Admission: 11/18/24 Primary Care Physician: Dr. Tong Santana, DO Reason For Visit: RT CAROTID ENDARTERECTOMY Diagnosis Discharge Diagnosis (1) Cerebral infarction due to stenosis of right carotid artery: Status: Acute Code(s): I63.231 - Cerebral infarction due to unspecified occlusion or stenosis of right carotid arteries Plan: She is POD#1 from R CEA. I removed the REYNA drain this morning, she tolerated this well. No signs/symptoms of hematoma. Pain is well controlled with tylenol. Discontinue gibbons. Discontinue arterial line. Progress to normal diet. Plan to ambulate and get up to chair with nursing or PT later this morning. Anticipate discharge this afternoon. Medications at Discharge Home Medications amlodipine 10 mg tablet 10 mg PO DAILY bp 09/12/18 Held on 11/19/24. Instructions: Resume on 11/22/24. aspirin 81 mg tablet,delayed release 81 mg PO DAILY heart 07/31/20 cholecalciferol (vitamin D3) 50 mcg (2,000 unit) capsule 50 mcg PO BID SUPPLEMENT 11/11/21 fluticasone propionate 50 mcg/actuation nasal spray,suspension 2 spray intranasal DAILY PRN Sinus Symptoms 11/11/21 carvedilol 3.125 mg tablet 3.125 mg PO BID blood pressure #60 tabs 11/13/21 clopidogrel 75 mg tablet (Plavix) 75 mg PO DAILY blood clots 03/21/22 hydralazine 10 mg tablet 10 mg PO BID high BP 03/21/22 simvastatin 40 mg tablet 40 mg PO QPM HLD 10/31/24 acetaminophen 500 mg tablet 1,000 mg (2 x 500 mg) PO Q8 #0 tabs 11/19/24 docusate sodium 100 mg capsule 100 mg PO BID PRN PRN Constipation 7 days #14 caps 11/19/24 oxycodone 5 mg tablet 5 mg PO Q8H PRN PRN Pain Score 4-10 3 days #9 tabs 11/19/24 Hospital Course Summary of Care Provided Hospital Course: Tiffanie Joshi is a 74 y/o female who underwent planned right carotid endarterectomy on 11/18/2024. The surgery was without complication and she tolerated it well. She was routinely admitted to the ICU postoperatively for ongoing hemodynamic and neurologic monitoring. She has remained neurologically stable throughout her admission. Initially postoperatively she was hypertensive requiring PRN labetalol then had slight overcorrection to hypotension which resolved with fluid bolus. Overnight and through the morning her blood pressures have been stable; her home carvedilol and hydralazine were restarted, amlodipine remained held. REYNA drain was removed this morning without issue. She has voided without issue, tolerated a normal diet, and ambulated well. She reports no concerns to discharging to her home. She is discharged home in medically stable condition with planned outpatient follow-up on 12/04/2024. Physical Exam Const alert, oriented x3 and no apparent distress General Appearance: cooperative and comfortable HEENT head/scalp atraumatic, hearing grossly normal bilaterally, external ears normal and external nose normal Eyes General Eye: normal appearance of both eyes Neck Neck Narrative: R neck incision site with skin glue intact, no dehiscence, erythema, ecchymosis. Mild edema, soft to palpation. REYNA drain with minimal serosanguineous drainage. Resp normal respiratory effort, normal air movement, no retractions and no use of accessory muscles Effort and Inspection: able to speak in complete sentences; Negative for labored, grunting or stridor Cardio Rate: regular rate Rhythm: regular rhythm Extremity no clubbing, cyanosis or edema Skin no rashes or lesions noted Neuro oriented x3, CN's II-XII intact bilaterally, moves all extremities and no sensory deficits noted Speech: speech normal Psych mental status grossly normal Appearance: grossly normal Attitude: calm and engaged Activity / Motor Behavior: appropriate eye contact Weight / BMI Weight Weight: 161 lb 6.054 oz Body Mass Index (BMI) 26.0 ABG / Lab / Microbiology Data 11/19/24 04:43 Laboratory: Laboratory Results - last 24 hr 11/18/24 11:55: Activated Clotting Time 141 H 11/18/24 12:33: Activated Clotting Time 291 H 11/18/24 13:11: Activated Clotting Time 233 H 11/18/24 13:50: Activated Clotting Time 251 H 11/19/24 04:43: WBC 20.5 H, RBC 4.16 L, Hgb 13.1, Hct 39.9, MCV 95.9, MCH 31.5, MCHC 32.8, RDW Std Deviation 47.2 H, RDW Coeff of Rolanda 13.2, Plt Count 382, MPV 9.2, Immature Gran % (Auto) 0.900, Neut % (Auto) 82.4 H, Lymph % (Auto) 8.3 L, [place] % (Auto) 8.2, Eos % (Auto) 0.0, Baso % (Auto) 0.2, Absolute Neuts (auto) 16.9 H, Absolute Lymphs (auto) 1.71, Nucleated RBC % 0, Differential Comment SCANNED, Diff Path Review May foll D/C Instructions Discharge Diet: No restrictions May shower in (days): 1 Weight Bearing Status: Weight bearing as tolerated Lifting Restricted to (Lbs): 20 Lifting Restrictions: Do not lift greater than 20 pounds for 3 weeks Call your doctor if your incision/area has: Sudden Increased Bleeding, Increased Pain/ Swelling and Foul Smelling Discharge Call your doctor if you observe: Fever of 101 or Higher and Uncontrolled pain Remove Dressing in: 1 day DC O2, CPAP, BIPAP Needs Home O2 Discharge instructions: No Additional Instructions: You have a small bandage over the site from which the surgical drain was removed. You may remove this bandage tomorrow after you shower. As long as there is no residual drainage, you may leave this open to air. If you do notice some continued drainage, you may re-cover with a Band-Aid. Your incision site is covered with skin glue which will continue to protect it. The skin glue will peel/flake off on its own over the next few weeks. Please do not pick at it. You may shower tomorrow. It is okay for soap and water to rinse over the incision site, pat to dry. Do not submerge the incision site in water such as to take a bath or go swimming etc. for 3 weeks. Do not lift greater than 20 pounds for 3 weeks. Otherwise, please continue with activity as tolerated. Do not drive until you can turn your head well enough to safely check your blind spots. Most patients wait 3-[address] I have prescribed a prescription pain medication oxycodone 5 mg tablets to be taken by mouth every 8 hours as needed for pain. Take only as needed. You may take this with Tylenol but do not take it with any other prescription pain medications. You are scheduled for follow-up in the office on 12/04/2024. If you need to change this appointment or have any other questions/concerns, please contact the office at [phone]. Please Follow Up With: Dede Silva PA When: 12/04/2024 Meaningful Use Info Meaningful Use Meaningful Use Diagnoses (Choose all that apply): None applicable Ischemic Stroke Statin Dosing Therapy Reference: STATIN DOSE THERAPY REFERENCE: * Patients > 75 years receive moderate or high dose statin therapy. * Patients 75 years or YOUNGER should receive HIGH intensity statin dose unless contraindicated. You will be required to document reason for non-treatment if statin daily dose does not meet guidelines. HIGH DOSE STATIN THERAPY DAILY Atorvastatin > than or = to 40 mg Rosuvastatin > than or = to 20 mg Amlodipine + Atorvastatin > than or = to 2.5/40 mg Ezetimibe + Simvastatin 10/80 mg Simvastatin 80mg Discharge Plan Admission Admit Date/Time: 11/18/24 10:01 Attending Provider: Dominic Garcia Primary Care Provider: Tong Santana Instructions Additional Instructions / Restrictions: You have a small bandage over the site from which the surgical drain was removed. You may remove this bandage tomorrow after you shower. As long as there is no residual drainage, you may leave this open to air. If you do notice some continued drainage, you may re-cover with a Band-Aid. Your incision site is covered with skin glue which will continue to protect it. The skin glue will peel/flake off on its own over the next few weeks. Please do not pick at it. You may shower tomorrow. It is okay for soap and water to rinse over the incision site, pat to dry. Do not submerge the incision site in water such as to take a bath or go swimming etc. for 3 weeks. Do not lift greater than 20 pounds for 3 weeks. Otherwise, please continue with activity as tolerated. Do not drive until you can turn your head well enough to safely check your blind spots. Most patients wait 3-[address] I have prescribed a prescription pain medication oxycodone 5 mg tablets to be taken by mouth every 8 hours as needed for pain. Take only as needed. You may take this with Tylenol but do not take it with any other prescription pain medications. You are scheduled for follow-up in the office on 12/04/2024. If you need to change this appointment or have any other questions/concerns, please contact the office at [phone]. Discharge Orders/Prescriptions Prescriptions: New acetaminophen 500 mg Tablet 1,000 mg PO Q8 Qty: 0 0RF docusate sodium 100 mg Capsule 100 mg PO BID PRN PRN (Reason: Constipation) 7 Days Qty: 14 0RF oxycodone 5 mg Tablet 5 mg PO Q8H PRN PRN (Reason: Pain Score 4-10) 3 Days Qty: 9 0RF Continued clopidogrel [Plavix] 75 mg tablet 75 mg PO DAILY hydralazine 10 mg tablet 10 mg PO BID aspirin 81 MG tablet,delayed release (DR/EC) 81 mg PO DAILY fluticasone propionate 50 mcg/actuation spray,suspension 2 spray INTRANASAL DAILY PRN (Reason: Sinus Symptoms) Patient Comments: SHAKE LIQUID AND USE 2 sprays into each nostril once daily cholecalciferol (vitamin D3) 50 mcg (2,000 unit) Capsule 50 mcg PO BID carvedilol 3.125 mg Tablet 3.125 mg PO BID Qty: 60 0RF simvastatin 40 mg tablet 40 mg PO QPM Held amlodipine 10 mg tablet 10 mg PO DAILY Hold Instructions: Resume on 11/22/24. Referrals / Follow Up: Tong Santana DO [Primary Care Provider] - Disposition Disposition (needs filled in before D/C Order can be placed): Home, Self Care
== END 2024-11-19 13:16 | disposition home or self-care (01) | DRG 39 ==
LOC: ICU 11-19 08:33
PROVIDERS: Admitting Provider Surgery Trauma Surgery; PCP Family Medicine; Referring Provider Surgery Trauma Surgery; Visit Provider Surgery Trauma Surgery
PROC: 03CM0ZZ Extirpation of Matter from Right External Carotid Artery, Open Approach (ICD-10-PCS; CPT 35301; principal; 2024-11-18 12:00)
DX: I65.21 Occlusion and stenosis of right carotid artery (principal); E78.5 Hyperlipidemia, unspecified; I73.9 Peripheral vascular disease, unspecified; I10 Essential (primary) hypertension; I25.10 Atherosclerotic heart disease of native coronary artery without angina pectoris; Z79.02 Long term (current) use of antithrombotics/antiplatelets; Z79.82 Long term (current) use of aspirin; Z95.5 Presence of coronary angioplasty implant and graft; Z87.891 Personal history of nicotine dependence; Z79.899 Other long term (current) drug therapy; R29.701 NIHSS score 1
CPT/HCPCS: 36415; 85025; 85347; 86850; 86900; 86901; 88304; 88311; 97802; A4648; A4216; J2405

== ENCOUNTER → 2024-12-16 | Outpatient (CLI) | payer MEDICARE, SELFPAY ==
[2022-09-07 10:28] VITALS: BMI 27.3
--- NOTE | 2024-12-16 09:55 | CDU_ITS ---
Reason For Study Reason For Study: S/P R CEA Rt. Velocities/BP Lt. Velocities/BP Prox CCA 88.3/11.3 cm/sec. Prox CCA 102.3/16.3 cm/sec. Mid CCA 64.1/13.5 cm/sec. Mid CCA 88.8/12.6 cm/sec. Dist CCA 58.6/10.2 cm/sec. Dist CCA 70.4/15.1 cm/sec. Prox ICA 46.5/9.9 cm/sec. Prox ICA 48.7/12.8 cm/sec. Mid ICA 35.8/6.6 cm/sec. Mid ICA 63.9/18.5 cm/sec. Dist ICA 67.1/17.1 cm/sec. Dist ICA 62.0/20.4 cm/sec. Rt. ICA/CCA = 1.0. Lt. ICA/CCA = 0.7. Prox ECA 121.1/13.3 cm/sec. Prox ECA 110.7/12.1 cm/sec. Rt. Vert. 32.6/8.3 cm/sec. Lt. Vert. 54.4/13.8 cm/sec. Right Extracranial There is homogeneous, smooth atherosclerotic plaque noted in the right common carotid artery. There is homogeneous, smooth atherosclerotic plaque noted in the right internal carotid artery. There is intimal thickening but no significant atherosclerotic plaque noted in the right external carotid artery. Antegrade flow is noted in the right vertebral artery. Left Extracranial There is homogeneous, smooth atherosclerotic plaque noted in the left common carotid artery. There is homogeneous, smooth atherosclerotic plaque noted in the left internal carotid artery. There is homogeneous, smooth atherosclerotic plaque noted in the left external carotid artery. Antegrade flow is noted in the left vertebral artery. Procedure Carotid Duplex [id number]. This is a Carotid Duplex examination using B-mode, color flow and specral Doppler. Exam performed in department. VL/Carotid Duplex Ultrasound Interpretation Summary Mild (<50%) stenosis right extracranial internal carotid. Mild (<50%) stenosis left extracranial internal carotid. Patent and antegrade vertebrals bilaterally. Ordering Physician: Dede Silva Referring Physician: Raj Santana M.D. Performed By: Tona Aguilar RVT
== END | disposition home or self-care (01) ==
LOC: CVS 09:53
PROVIDERS: PCP Family Medicine; Referring Provider Physician Assistant; Visit Provider Physician Assistant
DX: I65.23 Occlusion and stenosis of bilateral carotid arteries (principal); Z48.812 Encounter for surgical aftercare following surgery on the circulatory system
CPT/HCPCS: 93880

== ENCOUNTER → 2025-02-12 | Outpatient (CLI) | payer MEDICARE, SELFPAY ==
[2022-09-07 10:28] VITALS: BMI 27.3
[2025-02-12 10:58] LABS: Cholesterol 200 mg/dL (<=200); High Density Lipoprotein 67 mg/dL; Low Density Lipoprotein Calc. 110 mg/dL; Triglycerides 118 mg/dL; Very Low Density Lipoprotein 24 mg/dL (5-40); cholesterol:hdl ratio screen 2.99
[2025-02-12 11:03] LABS: Anion Gap 11 (5-15); BUN 11 mg/dL (4-19); BUN/Creat Ratio 10.9 RATIO (10-20); Chloride 105 mmol/L (98-108); Creatinine, Serum 0.96 mg/dL (0.70-1.20); EST Glomerular Filtration Rate 61 (>60); Glucose 87 mg/dL (70-99); Potassium 4.7 mmol/L (3.3-5.1); Sodium Level 142 mmol/L (133-145)
== END | disposition home or self-care (01) ==
LOC: LAB 08:20
PROVIDERS: PCP Family Medicine; Referring Provider Family Medicine; Visit Provider Family Medicine
DX: I25.10 Atherosclerotic heart disease of native coronary artery without angina pectoris (principal); I10 Essential (primary) hypertension
CPT/HCPCS: 36415; 80048; 80061

== ENCOUNTER → 2025-06-09 | Outpatient (CLI) | payer MEDICARE, SELFPAY ==
[2022-09-07 10:28] VITALS: BMI 27.3
--- NOTE | 2025-06-09 09:50 | CDU_ITS ---
Reason For Study Reason For Study: S/P Right CEA Rt. Velocities/BP Lt. Velocities/BP Prox CCA 80.6/6 cm/sec. Prox CCA 90/11.4 cm/sec. Mid CCA 82.5/11.6 cm/sec. Mid CCA 84.1/13.9 cm/sec. Dist CCA 76.8/8.8 cm/sec. Dist CCA 70.4/10.2 cm/sec. Prox ICA 56.4/10.2 cm/sec. Prox ICA 44.3/11.3 cm/sec. Mid ICA 66.3/20.1 cm/sec. Mid ICA 120.7/10.2 cm/sec. Dist ICA 52/13.5 cm/sec. Dist ICA 63/15.1 cm/sec. Rt. ICA/CCA = 0.80. Lt. ICA/CCA = 1.44. Prox ECA 124.7/11.5 cm/sec. Prox ECA 115.6/13.3 cm/sec. Rt. Vert. 35.5/9.1 cm/sec. Lt. Vert. 60.5/13.9 cm/sec. Right Extracranial There is homogeneous, smooth atherosclerotic plaque noted in the right common carotid artery. There is homogeneous, smooth atherosclerotic plaque noted in the right internal carotid artery. There is intimal thickening but no significant atherosclerotic plaque noted in the right external carotid artery. Antegrade flow is noted in the right vertebral artery. Left Extracranial There is homogeneous, smooth atherosclerotic plaque noted in the left common carotid artery. There is homogeneous, smooth atherosclerotic plaque noted in the left internal carotid artery. There is intimal thickening but no significant atherosclerotic plaque noted in the left external carotid artery. Antegrade flow is noted in the left vertebral artery. Procedure Carotid Duplex [id number]. This is a Carotid Duplex examination using B-mode, color flow and specral Doppler. Exam performed in department. VL/Carotid Duplex Ultrasound Interpretation Summary Mild (<50%) stenosis right extracranial internal carotid. Mild (<50%) stenosis left extracranial internal carotid. Patent and antegrade vertebrals bilaterally. Ordering Physician: Dede Silva Referring Physician: Richi Humphrey Performed By: Chelo Romo RVT
== END | disposition home or self-care (01) ==
PROVIDERS: PCP Family Medicine; Referring Provider Physician Assistant; Visit Provider Physician Assistant
DX: I65.23 Occlusion and stenosis of bilateral carotid arteries (principal)
CPT/HCPCS: 93880